=== PATIENT | female | born 1945 | race Caucasian/White ===

== ENCOUNTER 2017-01-21 10:33 | Day surgery (SDC) | payer OTHER ==
[2017-01-21] MEDS ORDERED: Clindamycin 600mg/50ml D5W 600 MG/50 ML VIAL IVPB SCH (12:15)
[2017-01-21] MEDS ORDERED: Clindamycin 600mg/50ml D5W 600 MG/50 ML VIAL IVPB STA (12:30)
[2017-01-21] MEDS ORDERED: Bupivacaine HCl 0.5% PF (10 ml) Inj ONE ×2 (14:01)
[2017-01-21] MEDS ORDERED: Lidocaine 1% Inj (20ml) ONE (14:01)
[2017-01-21] MEDS ORDERED: Lactated Ringer's 1,000 ML IV ONE (14:10)
[2017-01-21] MEDS ORDERED: Propofol 10 mg/ml Inj (20 ML) ONE (14:12)
[2017-01-21] MEDS ORDERED: Midazolam 2 MG/2 ML VIAL ONE (14:30)
[2017-01-21] MEDS ORDERED: HYDROmorphone 0.5 mg/0.5 ml ISec IVP PRN (14:45)
[2017-01-21] MEDS ORDERED: Oxycodone/Acetaminophen 5/325 mg Tab PO PRN ×2 (14:59)
--- NOTE | 2017-01-21 15:03 | PCM.SURG1 ---
Surgeon's Initial Post Op Note - Surgeon's Notes Surgeon: Dr. Grace Counseling Case Manager: Dr. Diaz Type of Anesthesia: IV Sedation, Local Pre-Operative Diagnosis: right foot 2nd digit hammertoe deformity Operative Findings: see dictation. I: 10 ml 1:1 1% lidocaine plain, 0.5% marcaine plain; 10ml 0.5% marcaine plain. M: 0.062 K-wire, 3-0 vicryl, 4-0 prolene. Post-Operative Diagnosis: right foot 2nd digit hammertoe deformity Operation Performed: Right foot 2nd digit PIPJ arthroplasty with K-wire fixation Specimen/Specimens Removed: none Estimated Blood Loss: EBL {In ML}: 1 Blood Products Given: N/A Drains Used: No Drains Post-Op Condition: Good Date of Surgery/Procedure: 01/21/17 Time of Surgery/Procedure: 15:03
--- NOTE | 2017-01-21 16:21 | RAD ---
Right foot three views History: Hammertoe deformity. Comparison: 01/30/2016 Findings: Soft tissue swelling within the dorsal soft tissues of the forefoot. Surgical pin seen extending through the 2nd proximal, middle, and distal phalanges. Diffuse osteopenia. Plantar calcaneal spurring. Narrowing of the tibiotalar joint space with some bony spurring noted anteriorly. Productive change at the dorsal aspect of the anterior talus. Narrowing of the 1st MTP joint space with subchondral sclerosis. Type 1 os navicularis variant noted. Persistent punctate radiopaque foci seen within the medial soft tissues at the base of the 1st metatarsal bone. Bone island and/or accessory ossicle seen projecting over the head of the 1st proximal phalanx. Bone island in the 4th metatarsal midshaft. Pes planus deformity. Impression: Postsurgical changes.
[2017-01-21 18:21] VITALS: BP 149/78; PULSE 55; RESP 18; TEMP 97; O2SAT 100
--- NOTE | 2017-01-23 12:10 | OP ---
PROCEDURE DATE: 01/21/2017 PREOPERATIVE DIAGNOSIS: Right foot second digit hammertoe deformity. POSTOPERATIVE DIAGNOSES: Right foot second digit hammertoe deformity. NAME OF PROCEDURE: Right foot second digit proximal interphalangeal joint arthroplasty with K-wire f ixation. SURGEON: Jayde Grace DPM. MANAGER CUSTOMER: Dannie Diaz. CHERRI. ANESTHESIA: IV sedation with local injection. INDICATIONS: This patient is a 71-year-old female with the aforementioned diagnoses. The patient is being treated by Dr. Grace in the [facility] on an outpatient basis where she has exhau sted multiple forms of conservative treatment options. The patient desires surgical intervention at this time. All alternatives, benefits, complications, and risks of surgical procedure were explained to the patient at length. The patient verbalized an understanding and wished to proceed. All quest ions were addressed and answered. No guarantees were given nor implied. The consent was signed and the n.p.o. status was confirmed prior to bringing the patient to the operating room. OPERATIVE PROCEDURE: The patient was brought into the operating room and placed on the operating dalila m table in supine position. A pneumatic ankle tourniquet was applied to the supramalleolar region ar ound the right ankle. After induction of IV sedation, a local injection consisting of 10 mL of a 1:1 mixture of 1% lidocaine plain and 0.5% Marcaine plain was administered in a local block fashion to t he right foot. After local anesthesia was achieved, the foot was then prepped and draped in the norm al sterile manner, and the procedure began. PROCEDURE: Right foot second digit proximal interphalangeal joint arthroplasty with K-wire fixation. Attention was directed to the dorsal aspect of the right foot second digit proximal interphalangeal joint where a linear longitudinal incision was made with a 15 blade. The incision was deep into the superficial and subcutaneous tissues utilizing sharp and blunt dissection. Care was taken to retrac t all vital neurovascular structures throughout the duration of the procedure. The ____ level of the proximal interphalangeal joint was identified, and a 15 blade was utilized to make a transverse caps ulotomy and tenotomy through the long extensor tendon of the second digit. A 15 blade was then again utilized to release the lateral and medial collateral ligaments from the proximal interphalangeal massimo int. Next, the long extensor tendon was reflected from the dorsal aspect ____ the proximal phalanx utilizi ng a 15 blade and clamped with a hemostat. With the head of the proximal phalanx now adequately expo sed, a sagittal saw was used to resect the distal portion. The resected portion of bone was passed f rom the surgical field to the back table. Next, utilizing a 0.045 K-wire, the K-wire was drilled in a retrograde fashion to create a guide hole in the proximal phalanx. The K-wire was then drilled in an anterograde fashion through the intermed iate and distal phalanges exiting the distal tip of the second digit. The second digit was then held in the corrected position, and the K-wire was again drilled under a retrograde fashion back into the guide hole previously created in the proximal phalanx. At this time, there was noted that the hamme rtoe deformity of the second digit had been adequately corrected. The surgical area was then flushed with copious amounts of sterile normal saline. Utilizing 3-0 Vicr yl suture, the long extensor tendon was reapproximated. The skin was then reapproximated utilizing 4 -0 Prolene suture. The K-wire was then bent and cut, and the appropriate-sized cap was placed. Post operative dressing consisted of saline soaked gauze, DSD, Linda, and Elastoplast. POSTOPERATIVE CONDITION: The patient tolerated the procedure and the anesthesia well with no apparen t complications. The patient was escorted from the OR to the recovery room with vital signs stable a nd neurovascular status intact. The patient will follow up with Dr. Grace in [facility] on an outpatient basis. Dannie Diaz DPM Jayde Grace DPM cc: [id number] TT: 01/23/2017 12:09:33 jn
== END 2017-01-21 18:22 | disposition home or self-care (01) ==
LOC: C.SDS 10:33
PROVIDERS: ATTEND Podiatrist Foot & Ankle Surgery
DX: M20.41 Other hammer toe(s) (acquired), right foot (principal)
CPT/HCPCS: 28285; 73620; C1713; J1170; J2250; J2704; J3010; J7120

== ENCOUNTER 2017-03-19 10:58 | Inpatient (IN) | payer OTHER ==
[2017-03-19 11:38] VITALS: BMI 28.2
[2017-03-19] MEDS ORDERED: Vancomycin 1 GM 1 GM/250 ML BAG IV STA (12:33)
[2017-03-19 13:27] LABS: BASO # 0.1 K/uL (0.0-0.2); BASO % 0.7 % (0.0-2.0); EOS # 0.2 K/uL (0.0-0.7); EOS % 2.3 % (0.0-4.0); HEMATOCRIT 35.8 % (34.0-47.0); LYMPH # 3.4 K/uL (1.0-4.3); LYMPH % 43.9 % (20.0-40.0); MEAN CELL VOLUME 87.3 fL (81.0-99.0); MEAN CORPUSCULAR HEMOGLOBIN 28.8 pg (27.0-31.0); MEAN PLATELET VOLUME 8.9 fL (7.2-11.7); MONO # 0.5 K/uL (0.0-0.8); MONO % 6.1 % (0.0-10.0); NRBC % 0.1 % (0.0-2.0); RED CELL DISTRIBUTION WIDTH 13.5 % (11.5-14.5); WHITE BLOOD COUNT 7.7 K/uL (4.8-10.8)
[2017-03-19 13:35] LABS: CHLORIDE 102 mmol/L (98-107); SODIUM 139 mmol/L (132-148)
[2017-03-19 13:37] LABS: GFR AFRICAN-AMERICAN > 60; INR 1.1
[2017-03-19 13:38] LABS: ALB/GLOB RATIO 1.3 (1.0-2.1); ALKALINE PHOSPHATASE 50 U/L (38-126); ALT/SGPT 24 U/L (9-52); AST/SGOT 23 U/L (14-36); BILIRUBIN,TOTAL 0.5 mg/dL (0.2-1.3); BLOOD UREA NITROGEN 15 mg/dL (7-17); CALCIUM 8.8 mg/dl (8.6-10.4); CARBON DIOXIDE 25 mmol/L (22-30); GLUCOSE,RANDOM 92 mg/dL (65-105); TOTAL PROTEIN 6.4 g/dL (6.3-8.3)
--- NOTE | 2017-03-19 13:38 | RAD ---
PROCEDURE: Right Foot Radiographs. HISTORY: toe infection COMPARISON: 01/30/2016 FINDINGS: BONES: Interval partial resection of 2nd distal proximal phalanx. No periosteal reaction an unexpected is seen surrounding the site or elsewhere to suggest gross radiographic osteomyelitis. The 3rd 4th hammertoes as before the os peroneum is renoted. There is ossification or calcification projecting between the 3rd and 4th metatarsal is likely within the soft tissues rather than contiguous with the bone also projects on 1 of the current projections between the 4th and 5th metatarsals. Prominent inferior calcaneal spurring. Minimal anterior tibiotalar osseous hypertrophy and dorsal talar head osseous hypertrophy noted JOINTS: Normal. SOFT TISSUES: The multiple metallic like densities in the medial soft tissues-1st tarsal metatarsal level are smaller in appearance consistent with radiopaque foreign body -correlate clinically with prior trauma history here no subjacent immediate osseous abnormality noted Mild lower leg reticulated subcutaneous edema likely related to lymphedema and/or cellulitis. OTHER FINDINGS: None. IMPRESSION: Interval postop changes as above. No gross periosteal reaction seen to suggest osteomyelitis. Other findings as above
[2017-03-19] MEDS ORDERED: Vancomycin 1 GM 1 GM/250 ML BAG IVPB ONE (13:42)
[2017-03-19] MEDS ORDERED: Morphine 4 MG/ML VIAL ONE (13:42)
--- NOTE | 2017-03-19 14:14 | C.PDOC ---
History Of Present Illness 71 y/o female sent to the ED by Dr. Grace, composition instructor, to rule out osteomyelitis to right foot 2nd toe. Pt states she is taking Clindamycin, and cipro, but still does not feel better, and still has pain to right foot. Otherwise, denies any change in sensation, weakness, numbness, fever, or chills. Time Seen by Provider: 03/19/17 12:24 Chief Complaint (Nursing): Lower Extremity Problem/Injury History Per: Patient History/Exam Limitations: no limitations Onset/Duration Of Symptoms: Days Current Symptoms Are (Timing): Still Present Recent travel outside of the [place]: No Additional History Per: Patient Past Medical History Reviewed: Historical Data, Nursing Documentation, Vital Signs Vital Signs: Last Vital Signs Temp 98.5 F 03/19/17 18:20 Pulse 55 L 03/19/17 18:20 Resp 20 03/19/17 18:20 BP 114/50 L 03/19/17 18:20 Pulse Ox 98 03/19/17 18:20 - Medical History PMH: Asthma, COPD, Depression, Gastritis, HTN, Hypercholesterolemia, Hypothyroidism, Pneumonia Denies: Chronic Kidney Disease [facility] ENDOSC POLYPECTOMY OF LG INTEST (02/15/14) INSEJ OF DRUG-ELUTING STENT(S) OF OTH PERIPHERAL VESSEL(S) (12/03/13) OTHER LOCAL DESTRUC SKIN (05/17/14) Family History: States: Unknown Family Hx - Social History Hx Tobacco Use: No Hx Alcohol Use: No - Immunization History Hx Tetanus Toxoid Vaccination: No Hx Influenza Vaccination: No Hx Pneumococcal Vaccination: No Review Of Systems Except As Marked, All Systems Reviewed And Found Negative. Constitutional: Negative for: Fever, Chills Cardiovascular: Negative for: Chest Pain, Palpitations Respiratory: Negative for: Shortness of Breath Musculoskeletal: Positive for: Foot Pain (right) Neurological: Negative for: Weakness, Numbness Physical Exam - Physical Exam Appears: Non-toxic, No Acute Distress Skin: No Warm (right foot is cool to palpation), Dry, Other (dark discoloration to right foot 2nd digit, no open sore or drainage) Head: Atraumatic, Normacephalic Oral Mucosa: Moist Neck: Supple Chest: Symmetrical Cardiovascular: Rhythm Regular Respiratory: Normal Breath Sounds, No Rales, No Rhonchi Gastrointestinal/Abdominal: Soft, No Tenderness Extremity: Normal ROM, Capillary Refill (<2 sec.), No Deformity Pulses: Left Dorsalis Pedis: Normal, Right Dorsalis Pedis: Decreased Neurological/Psych: Oriented x3, Normal Speech, Normal Cognition, Normal Motor, Normal Sensation ED Course And Treatment - Laboratory Results Result Diagrams: 03/19/17 13:23 03/19/17 13:23 O2 Sat by Pulse Oximetry: 100 (RA) Pulse Ox Interpretation: Normal - Other Rad Right foot x-ray X-Ray: Viewed By Me, Read By Radiologist Interpretation: PROCEDURE: Right Foot Radiographs. HISTORY: toe infection. COMPARISON: 01/30/2016. FINDINGS: BONES: Interval partial resection of 2nd distal proximal phalanx. No periosteal reaction an unexpected is seen surrounding the site or elsewhere to suggest gross radiographic osteomyelitis. The 3rd 4th hammertoes as before the os peroneum is renoted. There is ossification or calcification projecting between the 3rd and 4th metatarsal is likely within the soft tissues rather than contiguous with the bone also projects on 1 of the current projections between the 4th and 5th metatarsals. Prominent inferior calcaneal spurring. Minimal anterior tibiotalar osseous hypertrophy and dorsal talar head osseous hypertrophy noted. . JOINTS: Normal. SOFT TISSUES: The multiple metallic like densities in the medial soft tissues-1st tarsal metatarsal level are smaller in appearance consistent with radiopaque foreign body -correlate clinically with prior trauma history here no subjacent immediate osseous abnormality noted. Mild lower leg reticulated subcutaneous edema likely related to lymphedema and/or cellulitis. OTHER FINDINGS: None. IMPRESSION: Interval postop changes as above. No gross periosteal reaction seen to suggest osteomyelitis. Other findings as above Progress Note: Blood work, CXR, right foot x-ray ordered and reviewed. Pt was given Morphine, and Vancomycin. On re-eval, pt reports feeling better. Case discussed with Dr. Brennan, esl instructional assistant hospitalist, who accepted pt for admission. Disposition - Disposition Disposition: HOSPITALIZED Disposition Time: 14:37 Condition: STABLE - Clinical Impression Clinical Impression: Toe infection, Ischemic foot - PA / WARE CARRIER / Resident Statement MD/DO has reviewed & agrees with the documentation as recorded. - Scribe Statement The provider has reviewed the documentation as recorded by the Chapin Scherer All medical record entries made by the Cruzibangel were at my direction and personally dictated by me. I have reviewed the chart and agree that the record accurately reflects my personal performance of the history, physical exam, medical decision making, and the department course for this patient. I have also personally directed, reviewed, and agree with the discharge instructions and disposition. Decision To Admit - Pt Status Changed To: Hospital Disposition Of: Inpatient - Admit Certification Admit to Inpatient:: After my assessment, the patient will require hospitalization for at least two midnights. This is because of the severity of symptoms shown, intensity of services needed, and/or the medical risk in this patient being treated as an outpatient. - InPatient: Physician Admission Certification: I certify that this patient requires 2 or more midnights of care for the following reason:: will need to be in the hospital more than 2 days. - . Bed Request Type: Regular Admitting Physician: Bolivar Brennan Patient Diagnosis: Toe infection, Ischemic foot
[2017-03-19] MEDS ORDERED: Oxycodone/Acetaminophen 5/325 mg Tab PO PRN (15:20)
[2017-03-19] MEDS ORDERED: Heparin25000 units/250ml 1/2NS 25,000 UNITS/250 ML BAG IV ONE ×2 (15:29→16:00)
--- NOTE | 2017-03-19 15:58 | RAD ---
PROCEDURE: CHEST RADIOGRAPH, 1 VIEW HISTORY: toe infection COMPARISON: 01/15/2017 FINDINGS: LUNGS: Clear. PLEURA: No pneumothorax or pleural fluid seen. CARDIOVASCULAR: Normal. OSSEOUS STRUCTURES: No significant abnormalities. VISUALIZED UPPER ABDOMEN: Normal. OTHER FINDINGS: None. IMPRESSION: No active disease. No acute/significant interval changes.
--- NOTE | 2017-03-19 16:03 | CP.PCM.HP ---
<Vijay Herrera - Last Filed: 03/19/17 17:05> History of Present Illness - History of Present Illness History of Present Illness: PGY1 Medicine Note for Dr. Brennan 71 yo female with a past medical history of asthma, HTN, HLD, GERD, Hypothyroidism, Impaired glucose tolerance, Depression, Osteoporosis, Hyperparathyroidism, Polyarthritis and obesity. Patient presents to the ED with a CC of right foot pain s/p pin placement of the 2nd toe on the right foot. The surgery was performed by Dr. Grace on 01/21/17. Patient states a week after the surgery, her entire foot turned black and became very painful. The color of her foot has returned to normal except for the second and third toes which remain discolored. The pain is described as burning/throbbing and "feeling like getting bitten by bugs". The pain comes and goes but over the past few days it has gotten more intense. She states she has been taken "some painkiller" prescribed by Dr. Grace but it is not controlling the pain. She states since the pain has started, she has been experiencing fever and chills sporadically. She claims that she has lost consciousness on multiple occasions as a result from the intense pain that she feels. Patient states that she also has been experiencing extreme episodes of pruritus all over her body since the pain has began. Patient states that she has not taken anything outside of what Dr. Grace has prescribed to try and help her symptoms. Patient states she was taking some antibiotics but does not known exactly what she was taking. Denies n /v, d/c, cp, rash or sore throat. Patient has baseline sob due to history of asthma. Patient has hx of headaches at baseline. PMH: asthma, HTN, HLD, GERD, Hypothyroidism, Impaired glucose tolerance, Depression (since son in 2000, pt did not disclose cause of ), Osteoporosis, Hyperparathyroidism, Polyarthritis and obesity PSH: R foot 2nd digit arthroplasty w/ K wire fixation (01/21/2017), lump removal of right breast (non-cancerous), cyst removal from uterus, glaucoma surgery Social: former smoker (quit in 1985), alcohol occasional, denies illicit drug use Family:unknown Allergies: Penicillins (rash) Present on Admission - Present on Admission Any Indicators Present on Admission: No Review of Systems - Review of Systems All systems: reviewed and no additional remarkable complaints except - Constitutional Constitutional: As Per HPI - EENT Eyes: As Per HPI Ears: As Per HPI Nose/Mouth/Throat: As Per HPI - Breasts Breasts: As Per HPI - Cardiovascular Cardiovascular: As Per HPI - Respiratory Respiratory: As Per HPI - Gastrointestinal Gastrointestinal: As Per HPI - Genitourinary Genitourinary: As Per HPI - Reproductive: Female Reproductive:Female: As Per HPI - Menstruation Menstruation: As Per HPI - Musculoskeletal Musculoskeletal: As Per HPI - Integumentary Integumentary: As Per HPI - Neurological Neurological: As Per HPI - Psychiatric Psychiatric: As Per HPI - Endocrine Endocrine: As Per HPI - Hematologic/Lymphatic Hematologic: As Per HPI Past Patient History - Infectious Disease Hx of Infectious Diseases: None - Tetanus Immunizations Tetanus Immunization: Unknown - Past Medical History & Family History Past Medical History?: Yes - Past Social History Smoking Status: Former Smoker - CARDIAC Hx Hypercholesterolemia: Yes Hx Hypertension: Yes - PULMONARY Hx Asthma: Yes Hx Chronic Obstructive Pulmonary Disease (COPD): Yes Hx Pneumonia: Yes - NEUROLOGICAL Hx Neurological Disorder: No - HEENT Hx HEENT Problems: Yes Hx Cataracts: Yes - RENAL Hx Chronic Kidney Disease: No - ENDOCRINE/METABOLIC Hx Hypothyroidism: Yes - HEMATOLOGICAL/ONCOLOGICAL Hx Blood Disorders: No - INTEGUMENTARY Hx Dermatological Problems: Yes Other/Comment: HX:two lumps noted on each side next to under arm - (axillary) pt verbalized Dr. reina. HX: LIPOMA RIGHT CHEST WALL - MUSCULOSKELETAL/RHEUMATOLOGICAL Hx Musculoskeletal Disorders: Yes Hx Back Pain: Yes (LUMBAR) Hx Falls: No Hx Osteoarthritis: Yes (KNEES) Hx Osteomyelitis: Yes Other/Comment: HX: HAMMERTOES(2ND DIGIT-BILATERALLY) - GASTROINTESTINAL Hx Gastritis: Yes - GENITOURINARY/GYNECOLOGICAL Hx Genitourinary Disorders: No - PSYCHIATRIC Hx Depression: Yes - SURGICAL HISTORY Hx Surgeries: Yes Hx Cataract Extraction: Yes (BILATERAL) Hx Dilation and Curettage: Yes Other/Comment: Removal of cyst from ovaries 2010. HX: EXCISION LIPOMA RIGHT CHEST WALL 05/17/14. - ANESTHESIA Hx Anesthesia: Yes Hx Anesthesia Reactions: No Hx Malignant Hyperthermia: No Meds Allergies/Adverse Reactions: Allergies Allergy/AdvReac Type Severity Reaction Status Date / Time Penicillins Allergy RASH Verified 03/19/17 11:34 Physical Exam - Constitutional Additional comments: Obese - Head Exam Head Exam: ATRAUMATIC, NORMOCEPHALIC - Eye Exam Eye Exam: EOMI, Normal appearance - ENT Exam ENT Exam: Mucous Membranes Moist - Respiratory Exam Respiratory Exam: Wheezes. absent: Respiratory Distress Additional comments: Patient states that she feels like her chest is tight when she needs to use her inhaler. She has a history of asthma and requests her asthma pump to help open up her lungs. Patient appears to be slightly sob and is focused on her breathing. - Cardiovascular Exam Cardiovascular Exam: REGULAR RHYTHM, +S1, +S2 - GI/Abdominal Exam GI & Abdominal Exam: Normal Bowel Sounds, Soft. absent: Distended, Firm, Guarding - Extremities Exam Extremities exam: Positive for: tenderness. Negative for: calf tenderness, pedal edema, pedal pulses present - Expanded Lower Extremities Exam Right Foot/Toe exam: tenderness (Extremely tender to palpation of 2 digit, slight tenderness to palpation to 3rd digit) Neuro vacular tendon exam: abnormal cap refill (right foot cool to touch. Unable to palpate PT pulse. PT pulse on left foot 2+), significant pain with passive ROM of distal joint (2nd and 3rd digits) - Neurological Exam Neurological exam: Alert, Oriented x3 - Psychiatric Exam Psychiatric exam: Normal Affect, Normal Mood - Skin Skin Exam: Dry, Normal Color (except 2nd and 3rd digits of right foot, which appear dark and dusky.), Warm Results - Vital Signs Recent Vital Signs: Last Vital Signs Temp 97.5 F L 03/19/17 15:34 Pulse 65 03/19/17 15:34 Resp 18 03/19/17 15:34 BP 131/79 03/19/17 15:34 Pulse Ox 100 03/19/17 15:42 - Labs Result Diagrams: 03/19/17 13:23 03/19/17 13:23 Labs: Laboratory Results - last 24 hr 03/19/17 03/19/17 03/19/17 13:23 13:23 13:23 WBC 7.7 RBC 4.10 Hgb 11.8 Hct 35.8 MCV 87.3 MCH 28.8 MCHC 33.0 RDW 13.5 Plt Count 198 MPV 8.9 Neut % (Auto) 47.0 L Lymph % (Auto) 43.9 H Menard % (Auto) 6.1 Eos % (Auto) 2.3 Baso % (Auto) 0.7 Neut # 3.6 Lymph # 3.4 Menard # 0.5 Eos # 0.2 Baso # 0.1 PT 12.4 H INR 1.1 APTT 34 Sodium 139 Potassium 4.0 Chloride 102 Carbon Dioxide 25 Anion Gap 16 BUN 15 Creatinine 0.8 Est GFR ( Amer) > 60 Est GFR (Non-Af Amer) > 60 Random Glucose 92 Calcium 8.8 Total Bilirubin 0.5 AST 23 ALT 24 Alkaline Phosphatase 50 Total Protein 6.4 Albumin 3.6 Globulin 2.9 Albumin/Globulin Ratio 1.3 Assessment & Plan - Assessment and Plan (Free Text) Plan: Right foot pain s/p 2nd digit arthroplasty with K wire fixation 01/21/2017 Consulted Podiatry - Dr. Grace Consulted Vascular Surgery - Dr. Lay Started on Vanco 1g IV Q12H Started Percocet 325/5mg 1 tab Q6H PRN Started Heparin Drip F/U Podiatry and Vascular recs F/U AM labs, A1c, TSH, lipid panel HTN Lisinopril 10mg daily Hypothyroid Synthroid 50mcg daily HLD Crestor 10mg daily Asthma Singular 10mg daily Advair Diskus 500-50mcg/dose 1 puff daily Ventolin HFA 108 (90 base) mcg/act 2 puffs Q4H PRN Polyarthritis Celebrex 100mg daily Prophylactic Care Heparin Drip Pepcid 20mg daily Tylenol 650mg Q6H for headaches - Date & Time Date: 03/19/17 Time: 16:13 <Bolivar Brennan - Last Filed: 03/20/17 09:43> Results - Vital Signs Recent Vital Signs: Last Vital Signs Temp 98.1 F 03/20/17 07:21 Pulse 67 03/20/17 07:21 Resp 20 03/20/17 07:21 BP 135/81 03/20/17 07:21 Pulse Ox 98 03/20/17 07:21 - Labs Result Diagrams: 03/19/17 13:23 03/19/17 13:23 Labs: Laboratory Results - last 24 hr 03/19/17 19:53 PT 12.4 H INR 1.1 APTT 126 H* D Attending/Attestation - Attestation I have personally seen and examined this patient.: Yes I have fully participated in the care of the patient.: Yes I have reviewed all pertinent clinical information: Yes Notes (Text): 03/20/17 09:42 Patient was seen and examined at bedside with the resident We'll start the patient on antibiotics We'll request vascular surgery and podiatry consultation We will also start the patient on heparin drip for possible foot ischemia I discussed the plan of care with the resident and agree with the history and physical and assessment/plan documented by the resident.
--- NOTE | 2017-03-19 16:34 | CP.PCM.CON ---
History of Present Illness - History of Present Illness History of Present Illness: Vascular Surgery- Dr. Lay 71F PMHx HTN and Asthma had pin placement in the right tarsal metatarsal on January 21. 10 days ago pt was diagnosed with osteomyletitis and started taking oral antibiotics. Pt presented to the ED today with continued pain in the right foot. Denies current fevers chills nausea vomiting chest pain, SOB. PMH: Asthma HTN PSH: chest wall lipoma removal, pin in right foot ALL: PCN Review of Systems - Review of Systems All systems: reviewed and no additional remarkable complaints except Past Patient History - Infectious Disease Hx of Infectious Diseases: None - Tetanus Immunizations Tetanus Immunization: Unknown - Past Medical History & Family History Past Medical History?: Yes - Past Social History Smoking Status: Former Smoker - CARDIAC Hx Hypercholesterolemia: Yes Hx Hypertension: Yes - PULMONARY Hx Asthma: Yes Hx Chronic Obstructive Pulmonary Disease (COPD): Yes Hx Pneumonia: Yes - NEUROLOGICAL Hx Neurological Disorder: No - HEENT Hx HEENT Problems: Yes Hx Cataracts: Yes - RENAL Hx Chronic Kidney Disease: No - ENDOCRINE/METABOLIC Hx Hypothyroidism: Yes - HEMATOLOGICAL/ONCOLOGICAL Hx Blood Disorders: No - INTEGUMENTARY Hx Dermatological Problems: Yes Other/Comment: HX:two lumps noted on each side next to under arm - (axillary) pt verbalized Dr. reina. HX: LIPOMA RIGHT CHEST WALL - MUSCULOSKELETAL/RHEUMATOLOGICAL Hx Musculoskeletal Disorders: Yes Hx Back Pain: Yes (LUMBAR) Hx Falls: No Hx Osteoarthritis: Yes (KNEES) Hx Osteomyelitis: Yes Other/Comment: HX: HAMMERTOES(2ND DIGIT-BILATERALLY) - GASTROINTESTINAL Hx Gastritis: Yes - GENITOURINARY/GYNECOLOGICAL Hx Genitourinary Disorders: No - PSYCHIATRIC Hx Depression: Yes - SURGICAL HISTORY Hx Surgeries: Yes Hx Cataract Extraction: Yes (BILATERAL) Hx Dilation and Curettage: Yes Other/Comment: Removal of cyst from ovaries 2010. HX: EXCISION LIPOMA RIGHT CHEST WALL 05/17/14. - ANESTHESIA Hx Anesthesia: Yes Hx Anesthesia Reactions: No Hx Malignant Hyperthermia: No Meds Allergies/Adverse Reactions: Allergies Allergy/AdvReac Type Severity Reaction Status Date / Time Penicillins Allergy RASH Verified 03/19/17 11:34 - Medications Medications: Current Medications Acetaminophen (Tylenol 325mg Tab) 650 mg PO Q6H PRN PRN Reason: Headache Albuterol (Ventolin Hfa 90 Mcg/Actuation (8 G)) 2 puff IH RQ4 PRN PRN Reason: Shortness of Breath Celecoxib (Celebrex) 100 mg PO DAILY [facility] Hydrochlorothiazide (Hydrodiuril) 25 mg PO DAILY [facility] Vancomycin/Sodium Chloride (Vancocin) 1 gm in 200 mls @ 133.333 mls/hr IVPB Q12H [facility] Stop: 03/25/17 01:31 Heparin Sodium/Sodium Chloride (Heparin 40203 Units/250ml 1/2 Normal Saline) 25 ,000 units in 250 mls @ 14.288 mls/hr IV .[id number] ONE; 18 UNITS/KG/HR PRN Reason: Protocol Stop: 03/20/17 09:29 Levothyroxine Sodium (Synthroid) 50 mcg PO DAILY@0630 [facility] Lisinopril (Zestril) 10 mg PO DAILY [facility] Montelukast Sodium (Singulair) 10 mg PO HS [facility] Oxycodone/Acetaminophen (Percocet 5/325 Mg Tab) 1 tab PO Q6H PRN PRN Reason: Pain, severe (8-10) Stop: 03/22/17 15:21 Rosuvastatin Calcium (Crestor) 5 mg PO HS [facility] Fluticasone/Salmeterol (Advair Diskus 500/50) 1 puff INH RQ12 [facility] Physical Exam - Constitutional Appears: No Acute Distress - Head Exam Head Exam: ATRAUMATIC - Eye Exam Eye Exam: EOMI - Respiratory Exam Respiratory Exam: NORMAL BREATHING PATTERN. absent: Accessory Muscle Use, Rhonchi, Wheezes - Cardiovascular Exam Cardiovascular Exam: +S1, +S2 - GI/Abdominal Exam GI & Abdominal Exam: Soft. absent: Firm, Guarding, Tenderness - Extremities Exam Additional comments: palpable distal pedal pulses discolored right 2nd toe due to post operative changes - Neurological Exam Neurological exam: Alert, Oriented x3 - Psychiatric Exam Psychiatric exam: Normal Affect Results - Vital Signs Recent Vital Signs: Last Vital Signs Temp 97.5 F L 03/19/17 15:34 Pulse 65 03/19/17 15:34 Resp 18 03/19/17 15:34 BP 131/79 03/19/17 15:34 Pulse Ox 100 03/19/17 15:42 - Labs Result Diagrams: 03/19/17 13:23 03/19/17 13:23 Assessment & Plan - Assessment and Plan (Free Text) Assessment: 71F hx of osteomylitis in right foot presents with right foot pain Plan: - continue antibiotics - GI/DVT ppx - acute vascular compromise to extremities unlikely - will continue to follow for now - further recs per Dr. Rosanne Solorzano PGY1
[2017-03-19] MEDS ORDERED: Oxycodone/Acetaminophen 5/325 mg Tab ONE (18:26)
[2017-03-19 20:18] LABS: INR 1.1
[2017-03-20] MEDS: Albuterol HFA 90 mcg/actuation (8 g) IH PRN ×2 (00:13→07:40)
[2017-03-20] MEDS: Vancomycin 1 gm/NS 200 ml 1 GM/200 ML BAG IVPB SCH ×2 (01:42→13:14)
[2017-03-20] MEDS: guaiFENesin DM 200 mg-20 mg/10 ml UD PO PRN (01:43)
[2017-03-20] MEDS: Levothyroxine 50 MCG TAB PO SCH (06:23)
--- NOTE | 2017-03-20 07:28 | CP.PCM.PN ---
<JbHollie black - Last Filed: 03/20/17 12:20> Subjective - Date & Time of Evaluation Date of Evaluation: 03/20/17 Time of Evaluation: 07:00 - Subjective Subjective: Medicine Note for Dr. Brennan Patient was seen and examined at bedside. Patient reports she has immense pain on her right foot, due to her 2nd toe. Pain medications make the pain more bearable but does not take away the pain completely. Denied fever, chills, headache, chest pain, SOB, abdominal pain, n/v/d/c, or urinary symptoms. Objective - Vital Signs/Intake and Output Vital Signs (last 24 hours): Temp Pulse Resp BP Pulse Ox 98.1 F 67 20 135/81 98 03/20/17 07:21 03/20/17 07:21 03/20/17 07:21 03/20/17 07:21 03/20/17 07:21 Intake and Output: 03/20/17 03/20/17 06:59 18:59 Intake Total 230 Balance 230 - Medications Medications: Current Medications Acetaminophen (Tylenol 325mg Tab) 650 mg PO Q6H PRN PRN Reason: Headache Albuterol (Ventolin Hfa 90 Mcg/Actuation (8 G)) 2 puff IH RQ4 PRN PRN Reason: Shortness of Breath Last Admin: 03/20/17 00:13 Dose: 2 puff Guaifenesin/Dextromethorphan (Robitussin Dm) 10 ml PO Q4H PRN PRN Reason: Cough and congestion Last Admin: 03/20/17 01:43 Dose: 10 ml Hydrochlorothiazide (Hydrodiuril) 25 mg PO DAILY [facility] Vancomycin/Sodium Chloride (Vancocin) 1 gm in 200 mls @ 133.333 mls/hr IVPB Q12H [facility] Stop: 03/25/17 01:31 Last Admin: 03/20/17 01:42 Dose: 133.333 mls/hr Heparin Sodium/Sodium Chloride (Heparin 27426 Units/250ml 1/2 Normal Saline) 25 ,000 units in 250 mls @ 14.288 mls/hr IV .[id number] ONE; 18 UNITS/KG/HR PRN Reason: Protocol Stop: 03/20/17 09:29 Last Admin: 03/19/17 16:22 Dose: 18 units/kg/hr, 14.288 mls/hr Levothyroxine Sodium (Synthroid) 50 mcg PO DAILY@0630 [facility] Last Admin: 03/20/17 06:23 Dose: 50 mcg Lisinopril (Zestril) 10 mg PO DAILY [facility] Montelukast Sodium (Singulair) 10 mg PO HS [facility] Oxycodone/Acetaminophen (Percocet 5/325 Mg Tab) 1 tab PO Q6H PRN PRN Reason: Pain, severe (8-10) Stop: 03/22/17 15:21 Last Admin: 03/19/17 18:25 Dose: 1 tab Pantoprazole Sodium (Protonix Inj) 40 mg IVP DAILY [facility] Pneumococcal Polyvalent Vaccine (Pneumovax 23 Vaccine) 0.5 ml IM .ONCE ONE Stop: 03/22/17 10:01 Rosuvastatin Calcium (Crestor) 5 mg PO HS [facility] Last Admin: 03/19/17 21:37 Dose: 5 mg Fluticasone/Salmeterol (Advair Diskus 500/50) 1 puff INH RQ12 [facility] - Labs Labs: PT 12.4 SECONDS (9.7-12.2) H 03/19/17 19:53 INR 1.1 03/19/17 19:53 APTT 126 SECONDS (21-34) H* D 03/19/17 19:53 - Constitutional Appears: No Acute Distress - Head Exam Head Exam: NORMAL INSPECTION, NORMOCEPHALIC - Eye Exam Eye Exam: EOMI, Normal appearance, PERRL Pupil Exam: NORMAL ACCOMODATION - ENT Exam ENT Exam: Mucous Membranes Moist, Normal Exam - Respiratory Exam Respiratory Exam: Clear to Ausculation Bilateral, NORMAL BREATHING PATTERN. absent: Wheezes - Cardiovascular Exam Cardiovascular Exam: REGULAR RHYTHM, RRR, +S1, +S2 - GI/Abdominal Exam GI & Abdominal Exam: Soft, Normal Bowel Sounds. absent: Distended, Tenderness - Extremities Exam Extremities Exam: Normal Inspection. absent: Pedal Edema, Tenderness Additional comments: Right foot: tenderness (Extremely tender to palpation of 2 digit, slight tenderness to palpation to 3rd digit) Neuro vacular tendon exam: abnormal cap refill (right foot cool to touch. Unable to palpate PT pulse. PT pulse on left foot 2+), significant pain with passive ROM of distal joint (2nd and 3rd digits) - Neurological Exam Neurological Exam: Alert, Awake, Oriented x3 - Psychiatric Exam Psychiatric exam: Normal Affect, Normal Mood - Skin Skin Exam: Dry, Intact, Normal Color, Warm Assessment and Plan - Assessment and Plan (Free Text) Plan: Right foot pain s/p 2nd digit arthroplasty with K wire fixation 01/21/2017 Started on Vanco 1g IV Q12H Started Percocet 325/5mg 1 tab Q6H PRN Heparin Drip was started 03/19/17 Consulted Vascular Surgery - Dr. Lay - acute vascular compromise to extremities unlikely - Ordered CTA - f/u study Consulted Podiatry - Dr. Grace - help appreciated HTN Lisinopril 10mg daily, HCTZ 25mg PO daily A1c, TSH, lipid panel -WNL Hypothyroid Synthroid 50mcg daily HLD Crestor 10mg daily Asthma Singular 10mg daily Advair Diskus 500-50mcg/dose 1 puff daily Ventolin HFA 108 (90 base) mcg/act 2 puffs Q4H PRN Polyarthritis Celebrex 100mg daily Prophylactic Care Heparin Drip Pepcid 20mg daily Tylenol 650mg Q6H for headaches DW Savi Zhu DO, PGY-1 <Bolivar Brennan - Last Filed: 03/20/17 15:05> Objective - Vital Signs/Intake and Output Vital Signs (last 24 hours): Temp Pulse Resp BP Pulse Ox 98.1 F 73 20 152/79 H 98 03/20/17 07:21 03/20/17 10:35 03/20/17 07:21 03/20/17 10:35 03/20/17 07:21 Intake and Output: 03/20/17 03/20/17 06:59 18:59 Intake Total 230 Balance 230 - Medications Medications: Current Medications Acetaminophen (Tylenol 325mg Tab) 650 mg PO Q6H PRN PRN Reason: Headache Albuterol (Ventolin Hfa 90 Mcg/Actuation (8 G)) 2 puff IH RQ4 PRN PRN Reason: Shortness of Breath Last Admin: 03/20/17 07:40 Dose: 2 puff Guaifenesin/Dextromethorphan (Robitussin Dm) 10 ml PO Q4H PRN PRN Reason: Cough and congestion Last Admin: 03/20/17 01:43 Dose: 10 ml Hydrochlorothiazide (Hydrodiuril) 25 mg PO DAILY [facility] Last Admin: 03/20/17 10:36 Dose: 25 mg Vancomycin/Sodium Chloride (Vancocin) 1 gm in 200 mls @ 133.333 mls/hr IVPB Q12H [facility] Stop: 03/25/17 01:31 Last Admin: 03/20/17 13:14 Dose: 133.333 mls/hr Heparin Sodium/Sodium Chloride (Heparin 80757 Units/250ml 1/2 Normal Saline) 25 ,000 units in 250 mls @ 11.907 mls/hr IV .Q21H PRN; Protocol; 15 UNITS/KG/HR PRN Reason: PROTOCOL Last Admin: 03/20/17 14:11 Dose: 15 units/kg/hr, 11.907 mls/hr Levothyroxine Sodium (Synthroid) 50 mcg PO DAILY@0630 [facility] Last Admin: 03/20/17 06:23 Dose: 50 mcg Lisinopril (Zestril) 10 mg PO DAILY [facility] Last Admin: 03/20/17 10:35 Dose: 10 mg Montelukast Sodium (Singulair) 10 mg PO HS [facility] Morphine Sulfate (Morphine) 1 mg IVP Q4 PRN PRN Reason: Pain, severe (8-10) Oxycodone/Acetaminophen (Percocet 5/325 Mg Tab) 1 tab PO Q6H PRN PRN Reason: Pain, moderate (4-7) Stop: 03/22/17 15:21 Pantoprazole Sodium (Protonix Inj) 40 mg IVP DAILY [facility] Last Admin: 03/20/17 10:35 Dose: 40 mg Pneumococcal Polyvalent Vaccine (Pneumovax 23 Vaccine) 0.5 ml IM .ONCE ONE Stop: 03/22/17 10:01 Rosuvastatin Calcium (Crestor) 5 mg PO HS [facility] Last Admin: 03/19/17 21:37 Dose: 5 mg Fluticasone/Salmeterol (Advair Diskus 500/50) 1 puff INH RQ12 [facility] Last Admin: 03/20/17 07:39 Dose: 1 puff - Labs Labs: 03/20/17 11:14 03/20/17 11:14 PT 12.4 SECONDS (9.7-12.2) H 03/19/17 19:53 INR 1.1 08/15/17 19:53 APTT 124 SECONDS (21-34) H* 03/20/17 11:14 Attending/Attestation - Attestation I have personally seen and examined this patient.: Yes I have fully participated in the care of the patient.: Yes I have reviewed all pertinent clinical information, including history, physical exam and plan: Yes Notes (Text): 03/20/17 15:02 Patient was seen and examined at bedside today On examination patient's right foot appears warm today. Second toe appears to be less Dr. Patient also stated that pain and tenderness is improved We will continue heparin drip Discussed with vascular surgery. Plan for CT angiography today. Podiatry evaluation seen and appreciated Continue current management Discussed the plan of care with the resident and agree with the history and physical and assessment/plan documented.
[2017-03-20] MEDS: Fluticasone-Salmeterol 500-50mcg Diskus INH SCH (07:39)
--- NOTE | 2017-03-20 08:58 | CP.PCM.CON ---
History of Present Illness - History of Present Illness History of Present Illness: 71 year old female with PMHx including asthma, HTN, HLD, GERD, Hypothyroidism, Impaired glucose tolerance, Depression, Osteoporosis, Hyperparathyroidism, Polyarthritis and obesity was seen for complaint of right foot pain. She had right second hammertoe correction with Dr. Grace on 01/21/17. She states that she has had a lot of pain since the surgery. She had been given pain medication and antibiotics by Dr. Grace. She also states that she previously had a fever. She currently denies any n/c/f/c/sob/cp. Past Patient History - Infectious Disease Hx of Infectious Diseases: None - Tetanus Immunizations Tetanus Immunization: Unknown - Past Medical History & Family History Past Medical History?: Yes - Past Social History Smoking Status: Former Smoker - CARDIAC Hx Hypercholesterolemia: Yes Hx Hypertension: Yes - PULMONARY Hx Asthma: Yes Hx Chronic Obstructive Pulmonary Disease (COPD): Yes Hx Pneumonia: Yes - NEUROLOGICAL Hx Neurological Disorder: No - HEENT Hx HEENT Problems: Yes Hx Cataracts: Yes - RENAL Hx Chronic Kidney Disease: No - ENDOCRINE/METABOLIC Hx Endocrine Disorders: Yes Hx Hypothyroidism: Yes - HEMATOLOGICAL/ONCOLOGICAL Hx Blood Disorders: No - INTEGUMENTARY Hx Dermatological Problems: Yes Other/Comment: HX:two lumps noted on each side next to under arm - (axillary) pt verbalized Dr. reina. HX: LIPOMA RIGHT CHEST WALL - MUSCULOSKELETAL/RHEUMATOLOGICAL Hx Musculoskeletal Disorders: Yes Hx Back Pain: Yes (LUMBAR) Hx Falls: No Hx Osteoarthritis: Yes (KNEES) Hx Osteomyelitis: Yes Other/Comment: HX: HAMMERTOES(2ND DIGIT-BILATERALLY) - GASTROINTESTINAL Hx Gastrointestinal Disorders: Yes Hx Gastritis: Yes - GENITOURINARY/GYNECOLOGICAL Hx Genitourinary Disorders: No - PSYCHIATRIC Hx Psychophysiologic Disorder: Yes Hx Depression: Yes Hx Substance Use: No - SURGICAL HISTORY Hx Surgeries: Yes Hx Cataract Extraction: Yes (BILATERAL) Hx Dilation and Curettage: Yes Other/Comment: Removal of cyst from ovaries 2010. HX: EXCISION LIPOMA RIGHT CHEST WALL 05/17/14. - ANESTHESIA Hx Anesthesia: Yes Hx Anesthesia Reactions: No Hx Malignant Hyperthermia: No Has any member of the family had a problem w/ anesthesia?: No Meds Allergies/Adverse Reactions: Allergies Allergy/AdvReac Type Severity Reaction Status Date / Time Penicillins Allergy RASH Verified 03/19/17 11:34 - Medications Medications: Current Medications Acetaminophen (Tylenol 325mg Tab) 650 mg PO Q6H PRN PRN Reason: Headache Albuterol (Ventolin Hfa 90 Mcg/Actuation (8 G)) 2 puff IH RQ4 PRN PRN Reason: Shortness of Breath Last Admin: 03/20/17 07:40 Dose: 2 puff Guaifenesin/Dextromethorphan (Robitussin Dm) 10 ml PO Q4H PRN PRN Reason: Cough and congestion Last Admin: 03/20/17 01:43 Dose: 10 ml Hydrochlorothiazide (Hydrodiuril) 25 mg PO DAILY [facility] Vancomycin/Sodium Chloride (Vancocin) 1 gm in 200 mls @ 133.333 mls/hr IVPB Q12H [facility] Stop: 03/25/17 01:31 Last Admin: 03/20/17 01:42 Dose: 133.333 mls/hr Heparin Sodium/Sodium Chloride (Heparin 70981 Units/250ml 1/2 Normal Saline) 25 ,000 units in 250 mls @ 14.288 mls/hr IV .[id number] ONE; 18 UNITS/KG/HR PRN Reason: Protocol Stop: 03/20/17 09:29 Last Admin: 03/19/17 16:22 Dose: 18 units/kg/hr, 14.288 mls/hr Levothyroxine Sodium (Synthroid) 50 mcg PO DAILY@0630 [facility] Last Admin: 03/20/17 06:23 Dose: 50 mcg Lisinopril (Zestril) 10 mg PO DAILY [facility] Montelukast Sodium (Singulair) 10 mg PO HS [facility] Oxycodone/Acetaminophen (Percocet 5/325 Mg Tab) 1 tab PO Q6H PRN PRN Reason: Pain, severe (8-10) Stop: 03/22/17 15:21 Last Admin: 03/19/17 18:25 Dose: 1 tab Pantoprazole Sodium (Protonix Inj) 40 mg IVP DAILY [facility] Pneumococcal Polyvalent Vaccine (Pneumovax 23 Vaccine) 0.5 ml IM .ONCE ONE Stop: 03/22/17 10:01 Rosuvastatin Calcium (Crestor) 5 mg PO HS [facility] Last Admin: 03/19/17 21:37 Dose: 5 mg Fluticasone/Salmeterol (Advair Diskus 500/50) 1 puff INH RQ12 [facility] Last Admin: 03/20/17 07:39 Dose: 1 puff Physical Exam - Constitutional Appears: Non-toxic, No Acute Distress - Extremities Exam Additional comments: Right lower extremity focused exam: Vasc: DP and PT pulses palpable. Skin temperature warm to warm from proximal to distal. Neuro: Gross sensation intact b/l Ortho: Pain on palpation noted to the right 2nd digit Derm: Right second digit is edematous. No open lesions, no drainage, no probe to bone noted. Right 2nd digit skin is slightly discolored. - Neurological Exam Neurological exam: Alert, Oriented x3 - Psychiatric Exam Psychiatric exam: Normal Affect, Normal Mood Results - Vital Signs Recent Vital Signs: Last Vital Signs Temp 98.1 F 03/20/17 07:21 Pulse 67 03/20/17 07:21 Resp 20 03/20/17 07:21 BP 135/81 03/20/17 07:21 Pulse Ox 98 03/20/17 07:21 - Labs Result Diagrams: 03/20/17 11:14 03/20/17 11:14 Labs: Laboratory Results - last 24 hr 03/19/17 19:53 PT 12.4 H INR 1.1 APTT 126 H* D Assessment & Plan - Assessment and Plan (Free Text) Assessment: 71 year old female 8 weeks status post right 2nd digit hammertoe correction Plan: patient examined and evaluated discussed in detail with Dr. Grace chart, labs, vitals reviewed;afebrile, WBC 7.1 Radiographic IMPRESSION:Interval postop changes as above. No gross periosteal reaction seen to suggest osteomyelitis. Other findings as above CTA per vascular no dressing needed continue pain medication per primary continue IV abx per primary podiatry will continue to follow patient while in house
[2017-03-20] MEDS ORDERED: Oxycodone/Acetaminophen 5/325 mg Tab PO PRN (09:57)
--- NOTE | 2017-03-20 11:07 | CP.PCM.PN ---
Subjective - Date & Time of Evaluation Date of Evaluation: 03/20/17 Time of Evaluation: 06:50 - Subjective Subjective: Patient seen and examined this morning. Complains of pain along 2nd toe. Denies chest pain/SOB, fever/chills. No events over night. Objective - Vital Signs/Intake and Output Vital Signs (last 24 hours): Temp Pulse Resp BP Pulse Ox 98.1 F 73 20 152/79 H 98 03/20/17 07:21 03/20/17 10:35 03/20/17 07:21 03/20/17 10:35 03/20/17 07:21 Intake and Output: 03/20/17 03/20/17 06:59 18:59 Intake Total 230 Balance 230 - Medications Medications: Current Medications Acetaminophen (Tylenol 325mg Tab) 650 mg PO Q6H PRN PRN Reason: Headache Albuterol (Ventolin Hfa 90 Mcg/Actuation (8 G)) 2 puff IH RQ4 PRN PRN Reason: Shortness of Breath Last Admin: 03/20/17 07:40 Dose: 2 puff Guaifenesin/Dextromethorphan (Robitussin Dm) 10 ml PO Q4H PRN PRN Reason: Cough and congestion Last Admin: 03/20/17 01:43 Dose: 10 ml Hydrochlorothiazide (Hydrodiuril) 25 mg PO DAILY [facility] Last Admin: 03/20/17 10:36 Dose: 25 mg Vancomycin/Sodium Chloride (Vancocin) 1 gm in 200 mls @ 133.333 mls/hr IVPB Q12H [facility] Stop: 03/25/17 01:31 Last Admin: 03/20/17 01:42 Dose: 133.333 mls/hr Levothyroxine Sodium (Synthroid) 50 mcg PO DAILY@0630 [facility] Last Admin: 03/20/17 06:23 Dose: 50 mcg Lisinopril (Zestril) 10 mg PO DAILY [facility] Last Admin: 03/20/17 10:35 Dose: 10 mg Montelukast Sodium (Singulair) 10 mg PO HS [facility] Morphine Sulfate (Morphine) 1 mg IVP Q4 PRN PRN Reason: Pain, severe (8-10) Oxycodone/Acetaminophen (Percocet 5/325 Mg Tab) 1 tab PO Q6H PRN PRN Reason: Pain, moderate (4-7) Stop: 03/22/17 15:21 Pantoprazole Sodium (Protonix Inj) 40 mg IVP DAILY [facility] Last Admin: 03/20/17 10:35 Dose: 40 mg Pneumococcal Polyvalent Vaccine (Pneumovax 23 Vaccine) 0.5 ml IM .ONCE ONE Stop: 03/22/17 10:01 Rosuvastatin Calcium (Crestor) 5 mg PO HS [facility] Last Admin: 03/19/17 21:37 Dose: 5 mg Fluticasone/Salmeterol (Advair Diskus 500/50) 1 puff INH RQ12 [facility] Last Admin: 03/20/17 07:39 Dose: 1 puff - Labs Labs: PT 12.4 SECONDS (9.7-12.2) H 03/19/17 19:53 INR 1.1 03/19/17 19:53 APTT 126 SECONDS (21-34) H* D 03/19/17 19:53 - Constitutional Appears: No Acute Distress - Head Exam Head Exam: NORMOCEPHALIC - Eye Exam Eye Exam: Normal appearance - ENT Exam ENT Exam: Mucous Membranes Moist - Respiratory Exam Respiratory Exam: NORMAL BREATHING PATTERN - Cardiovascular Exam Cardiovascular Exam: +S1, +S2 - GI/Abdominal Exam GI & Abdominal Exam: Soft - Neurological Exam Neurological Exam: Alert, Awake, Oriented x3 - Psychiatric Exam Psychiatric exam: Normal Mood - Skin Skin Exam: Intact, Warm Additional comments: hyperesthesia along 2nd toe Assessment and Plan - Assessment and Plan (Free Text) Assessment: 71 year old female 8 weeks status post right 2nd digit hammertoe correction -Follow up CTA results -C/w abx -C/w anticoagulant -analgesics -Medical treatment as per primary -Further recs per Dr. Rosanne Workman PGY-2
[2017-03-20 11:23] LABS: BASO % 0.6 % (0.0-2.0); EOS # 0.1 K/uL (0.0-0.7); EOS % 1.9 % (0.0-4.0); HEMATOCRIT 38.6 % (34.0-47.0); LYMPH # 2.7 K/uL (1.0-4.3); LYMPH % 36.2 % (20.0-40.0); MEAN CELL VOLUME 86.8 fL (81.0-99.0); MEAN CORPUSCULAR HEMOGLOBIN 28.9 pg (27.0-31.0); MEAN CORPUSCULAR HGB CONC 33.3 g/dL (33.0-37.0); MEAN PLATELET VOLUME 9.1 fL (7.2-11.7); MONO # 0.5 K/uL (0.0-0.8); MONO % 6.6 % (0.0-10.0); NRBC % 0.1 % (0.0-2.0); RED CELL DISTRIBUTION WIDTH 13.7 % (11.5-14.5); WHITE BLOOD COUNT 7.4 K/uL (4.8-10.8)
[2017-03-20 11:32] LABS: CHLORIDE 102 mmol/L (98-107)
[2017-03-20 11:33] LABS: POTASSIUM 3.4 mmol/L (3.6-5.2); SODIUM 137 mmol/L (132-148)
[2017-03-20 11:35] LABS: BILIRUBIN,TOTAL 0.6 mg/dL (0.2-1.3); CARBON DIOXIDE 26 mmol/L (22-30); CHOLESTEROL 190 mg/dL (0-199); GFR AFRICAN-AMERICAN > 60
[2017-03-20 11:36] LABS: ALB/GLOB RATIO 1.2 (1.0-2.1); ALKALINE PHOSPHATASE 54 U/L (38-126); ALT/SGPT 28 U/L (9-52); AST/SGOT 25 U/L (14-36); BLOOD UREA NITROGEN 9 mg/dL (7-17); CALCIUM 8.9 mg/dl (8.6-10.4); GLUCOSE,RANDOM 93 mg/dL (65-105); TOTAL PROTEIN 6.7 g/dL (6.3-8.3)
[2017-03-20 12:08] LABS: THYROID STIMULATING HORMONE 1.86 mIU/L (0.46-4.68)
[2017-03-20] MEDS ORDERED: Potassium Chloride 20 mEq ER Tab PO ONE (12:30)
[2017-03-20] MEDS ORDERED: Heparin25000 units/250ml 1/2NS 25,000 UNITS/250 ML BAG IV PRN ×3 (13:38→21:30)
[2017-03-20] MEDS ORDERED: Iodixanol 320 mg/ml 150 ml Bottle IV ONE (14:53)
[2017-03-21] MEDS: Vancomycin 1 gm/NS 200 ml 1 GM/200 ML BAG IVPB SCH ×3 (00:31→19:01)
[2017-03-21] MEDS: Levothyroxine 50 MCG TAB PO SCH (05:44)
[2017-03-21 07:47] LABS: BASO # 0.1 K/uL (0.0-0.2); BASO % 0.8 % (0.0-2.0); EOS # 0.2 K/uL (0.0-0.7); EOS % 2.9 % (0.0-4.0); HEMATOCRIT 38.1 % (34.0-47.0); LYMPH # 3.2 K/uL (1.0-4.3); LYMPH % 43.6 % (20.0-40.0); MEAN CELL VOLUME 86.8 fL (81.0-99.0); MEAN CORPUSCULAR HEMOGLOBIN 29.1 pg (27.0-31.0); MEAN CORPUSCULAR HGB CONC 33.5 g/dL (33.0-37.0); MEAN PLATELET VOLUME 9.3 fL (7.2-11.7); MONO # 0.5 K/uL (0.0-0.8); NRBC % 0.5 % (0.0-2.0); RED CELL DISTRIBUTION WIDTH 13.5 % (11.5-14.5); WHITE BLOOD COUNT 7.4 K/uL (4.8-10.8)
[2017-03-21 07:52] LABS: CHLORIDE 102 mmol/L (98-107); POTASSIUM 3.7 mmol/L (3.6-5.2); SODIUM 136 mmol/L (132-148)
[2017-03-21 07:54] LABS: AST/SGOT 22 U/L (14-36); BILIRUBIN,TOTAL 0.7 mg/dL (0.2-1.3); CARBON DIOXIDE 23 mmol/L (22-30); GFR AFRICAN-AMERICAN > 60
[2017-03-21 07:55] LABS: ALB/GLOB RATIO 1.2 (1.0-2.1); ALKALINE PHOSPHATASE 55 U/L (38-126); ALT/SGPT 29 U/L (9-52); BLOOD UREA NITROGEN 9 mg/dL (7-17); GLUCOSE,RANDOM 87 mg/dL (65-105); TOTAL PROTEIN 6.5 g/dL (6.3-8.3)
[2017-03-21] MEDS: Albuterol HFA 90 mcg/actuation (8 g) IH PRN ×2 (08:02→20:05)
[2017-03-21] MEDS: Fluticasone-Salmeterol 500-50mcg Diskus INH SCH ×2 (08:02→20:04)
[2017-03-21] MEDS ORDERED: Heparin25000 units/250ml 1/2NS 25,000 UNITS/250 ML BAG IV PRN (10:45)
--- NOTE | 2017-03-21 11:00 | CP.PCM.PN ---
Subjective - Date & Time of Evaluation Date of Evaluation: 03/21/17 Time of Evaluation: 10:53 - Subjective Subjective: 71 year old female was seen resting comfortably at bedside this morning regarding R 2nd digit pain. Patient NAD, AAOx3. Patient states that she has less pain to her right 2nd digit today and that the swelling has come down. She denies any n/v/f/c/sob/cp. Objective - Vital Signs/Intake and Output Vital Signs (last 24 hours): Temp Pulse Resp BP Pulse Ox 98 F 61 19 167/82 H 100 03/21/17 07:58 03/21/17 07:58 03/21/17 07:58 03/21/17 07:58 03/21/17 07:58 Intake and Output: 03/21/17 03/21/17 06:59 18:59 Intake Total 580 Balance 580 - Medications Medications: Current Medications Acetaminophen (Tylenol 325mg Tab) 650 mg PO Q6H PRN PRN Reason: Headache Albuterol (Ventolin Hfa 90 Mcg/Actuation (8 G)) 2 puff IH RQ4 PRN PRN Reason: Shortness of Breath Last Admin: 03/21/17 08:02 Dose: 2 puff Guaifenesin/Dextromethorphan (Robitussin Dm) 10 ml PO Q4H PRN PRN Reason: Cough and congestion Last Admin: 03/20/17 01:43 Dose: 10 ml Hydrochlorothiazide (Hydrodiuril) 25 mg PO DAILY [facility] Last Admin: 03/21/17 09:32 Dose: 25 mg Vancomycin/Sodium Chloride (Vancocin) 1 gm in 200 mls @ 133.333 mls/hr IVPB Q12H [facility] Stop: 03/25/17 01:31 Last Admin: 03/21/17 00:31 Dose: 133.333 mls/hr Heparin Sodium/Sodium Chloride (Heparin 69588 Units/250ml 1/2 Normal Saline) 25 ,000 units in 250 mls @ 7.144 mls/hr IV .Q24H PRN; Protocol; 9 UNITS/KG/HR PRN Reason: PROTOCOL Levothyroxine Sodium (Synthroid) 50 mcg PO DAILY@0630 [facility] Last Admin: 03/21/17 05:44 Dose: 50 mcg Lisinopril (Zestril) 10 mg PO DAILY [facility] Last Admin: 03/21/17 09:32 Dose: 10 mg Montelukast Sodium (Singulair) 10 mg PO [facility] Last Admin: 03/20/17 21:05 Dose: 10 mg Morphine Sulfate (Morphine) 1 mg IVP Q4 PRN PRN Reason: Pain, severe (8-10) Last Admin: 03/21/17 00:32 Dose: 1 mg Oxycodone/Acetaminophen (Percocet 5/325 Mg Tab) 1 tab PO Q6H PRN PRN Reason: Pain, moderate (4-7) Stop: 03/22/17 15:21 Pantoprazole Sodium (Protonix Inj) 40 mg IVP DAILY [facility] Last Admin: 03/21/17 09:33 Dose: 40 mg Pneumococcal Polyvalent Vaccine (Pneumovax 23 Vaccine) 0.5 ml IM .ONCE ONE Stop: 03/22/17 10:01 Rosuvastatin Calcium (Crestor) 5 mg PO [facility] Last Admin: 03/20/17 21:05 Dose: 5 mg Fluticasone/Salmeterol (Advair Diskus 500/50) 1 puff INH RQ12 [facility] Last Admin: 03/21/17 08:02 Dose: 1 puff - Labs Labs: 03/21/17 07:21 03/21/17 07:21 PT 12.4 SECONDS (9.7-12.2) H 03/19/17 19:53 INR 1.1 03/19/17 19:53 APTT 124 SECONDS (21-34) H* D 03/21/17 06:56 - Constitutional Appears: Well, Non-toxic, No Acute Distress - Extremities Exam Additional comments: Right lower extremity focused exam: Vasc: DP and PT pulses palpable. Skin temperature warm to cool from proximal to distal. Neuro: Gross sensation intact Ortho: Pain on palpation noted to the right 2nd digit Derm: Right second digit is edematous. No open lesions, no drainage, no probe to bone noted. Right 2nd digit skin is slightly discolored dark. - Neurological Exam Neurological Exam: Alert, Awake, Oriented x3 - Psychiatric Exam Psychiatric exam: Normal Affect, Normal Mood Assessment and Plan - Assessment and Plan (Free Text) Assessment: 71 year old female 8 weeks status post right 2nd digit hammertoe correction Plan: patient examined and evaluated discussed in detail with Dr. Grace chart, labs, vitals reviewed;afebrile, WBC 7.4 Radiographic IMPRESSION:Interval postop changes as above. No gross periosteal reaction seen to suggest osteomyelitis. Other findings as above MRI 03/08/17 impressions: Findings compatible with osteomyelitis of the 2nd digit primarily at the mid proximal and middle phalangeal segments and potentially the distal phalanx as well 2nd digit no definite fracture identified. Dephasing artifact is noted at the midfoot medially within superficial soft tissues likely from retained paramagnetic foreign body. CTA per vascular- pending no dressing needed continue pain medication per primary continue IV abx per primary podiatry will continue to follow patient while in house
--- NOTE | 2017-03-21 14:02 | CT ---
PROCEDURE: CT Angiography Abdomen, Pelvis and Lower Extremity with Contrast HISTORY: Leg pain COMPARISON: None. TECHNIQUE: Technique: CT angiography of the abdomen, pelvis and bilateral lower extremities performed in the arterial phase of enhancement. Coronal and sagittal reformats, and well as rotating MIP images of the vessels generated at the workstation. Intravenous contrast dose: 150 milliliters Visipaque 320 Radiation dose: Total exam DLP = 2362.33 MGy-cm. This CT exam was performed using one or more of the following dose reduction techniques: Automated exposure control, adjustment of the mA and/or kV according to patient size, and/or use of iterative reconstruction technique. FINDINGS: CT ANGIOGRAPHY: ABDOMINAL AORTA:: Abdominal was unremarkable. MAJOR AORTIC BRANCHES: Celiac [place]: Unremarkable. Superior mesenteric artery: Unremarkable. Inferior mesenteric artery: Unremarkable. Renal arteries: Unremarkable. PELVIC ARTERIES: Right Common Iliac: Unremarkable. Right External Iliac: Unremarkable. Right Internal Iliac: Unremarkable. Left Common Iliac: Unremarkable. Left External Iliac: Unremarkable. Left Internal Iliac: Unremarkable. RIGHT LOWER EXTREMITY ARTERIES: Right Common Femoral: Unremarkable. Right Superficial Femoral: Unremarkable. Right Profunda Femoris: Unremarkable. Right Popliteal:Unremarkable. Right Anterior Tibial: Unremarkable. Right Tibioperoneal Trunk: Unremarkable. Right Posterior Tibial: Unremarkable. Right Peroneal: Unremarkable. Right dorsalis pedis : Unremarkable. LEFT LOWER EXTREMITY ARTERIES: Left Common Femoral: Unremarkable. Left Superficial Femoral: Unremarkable. Left Profunda Femoris: Unremarkable. Left Popliteal: Unremarkable. Left Anterior Tibial: Unremarkable. Left Tibioperoneal Trunk: Unremarkable. Left Posterior Tibial: Unremarkable. Left Peronea: Unremarkable. Left Dorsalis pedis: Unremarkable. NON-ANGIOGRAPHIC ASPECT OF THE EXAM: LOWER THORAX: Unremarkable. LIVER: Unremarkable. No gross lesion or ductal dilatation. GALLBLADDER AND BILE DUCTS: Unremarkable. PANCREAS: Unremarkable. No gross lesion or ductal dilatation. SPLEEN: Unremarkable. ADRENALS: Unremarkable. No mass. KIDNEYS AND URETERS: Unremarkable. No hydronephrosis. No solid mass. STOMACH AND BOWEL: Unremarkable. No obstruction. No gross mural thickening. APPENDIX: Normal appendix. PERITONEUM: Unremarkable. No free fluid. No free air. LYMPH NODES: Unremarkable. No enlarged lymph nodes. BLADDER: Unremarkable. REPRODUCTIVE: Unremarkable. BONES: No acute fracture. OTHER FINDINGS: None. IMPRESSION: Unremarkable CT angiogram of the abdomen pelvis. There is no evidence of peripheral show disease.
--- NOTE | 2017-03-21 15:00 | CP.PCM.PN ---
Subjective - Date & Time of Evaluation Date of Evaluation: 03/21/17 Time of Evaluation: 14:59 - Subjective Subjective: cta confirms clinical imression No evidence of significant or occult PVD Objective - Vital Signs/Intake and Output Vital Signs (last 24 hours): Temp Pulse Resp BP Pulse Ox 98 F 61 19 167/82 H 100 03/21/17 07:58 03/21/17 07:58 03/21/17 07:58 03/21/17 07:58 03/21/17 07:58 Intake and Output: 03/21/17 03/21/17 06:59 18:59 Intake Total 580 Balance 580 - Medications Medications: Current Medications Acetaminophen (Tylenol 325mg Tab) 650 mg PO Q6H PRN PRN Reason: Headache Albuterol (Ventolin Hfa 90 Mcg/Actuation (8 G)) 2 puff IH RQ4 PRN PRN Reason: Shortness of Breath Last Admin: 03/21/17 08:02 Dose: 2 puff Guaifenesin/Dextromethorphan (Robitussin Dm) 10 ml PO Q4H PRN PRN Reason: Cough and congestion Last Admin: 03/20/17 01:43 Dose: 10 ml Hydrochlorothiazide (Hydrodiuril) 25 mg PO DAILY [facility] Last Admin: 03/21/17 09:32 Dose: 25 mg Vancomycin/Sodium Chloride (Vancocin) 1 gm in 200 mls @ 133.333 mls/hr IVPB Q12H [facility] Stop: 03/25/17 01:31 Last Admin: 03/21/17 14:09 Dose: Not Given Heparin Sodium/Sodium Chloride (Heparin 83329 Units/250ml 1/2 Normal Saline) 25 ,000 units in 250 mls @ 7.144 mls/hr IV .Q24H PRN; Protocol; 9 UNITS/KG/HR PRN Reason: PROTOCOL Last Admin: 03/21/17 10:54 Dose: 9 units/kg/hr, 7.144 mls/hr Levothyroxine Sodium (Synthroid) 50 mcg PO DAILY@0630 [facility] Last Admin: 03/21/17 05:44 Dose: 50 mcg Lisinopril (Zestril) 10 mg PO DAILY [facility] Last Admin: 03/21/17 09:32 Dose: 10 mg Montelukast Sodium (Singulair) 10 mg PO HS [facility] Last Admin: 03/20/17 21:05 Dose: 10 mg Morphine Sulfate (Morphine) 1 mg IVP Q4 PRN PRN Reason: Pain, severe (8-10) Last Admin: 03/21/17 00:32 Dose: 1 mg Oxycodone/Acetaminophen (Percocet 5/325 Mg Tab) 1 tab PO Q6H PRN PRN Reason: Pain, moderate (4-7) Stop: 03/22/17 15:21 Pantoprazole Sodium (Protonix Inj) 40 mg IVP DAILY [facility] Last Admin: 03/21/17 09:33 Dose: 40 mg Pneumococcal Polyvalent Vaccine (Pneumovax 23 Vaccine) 0.5 ml IM .ONCE ONE Stop: 03/22/17 10:01 Rosuvastatin Calcium (Crestor) 5 mg PO [facility] Last Admin: 03/20/17 21:05 Dose: 5 mg Fluticasone/Salmeterol (Advair Diskus 500/50) 1 puff INH RQ12 [facility] Last Admin: 03/21/17 08:02 Dose: 1 puff - Labs Labs: 03/21/17 07:21 03/21/17 07:21 PT 12.4 SECONDS (9.7-12.2) H 03/19/17 19:53 INR 1.1 03/19/17 19:53 APTT 124 SECONDS (21-34) H* D 03/21/17 06:56
--- NOTE | 2017-03-21 15:45 | CP.PCM.CON ---
History of Present Illness - History of Present Illness History of Present Illness: dictated Past Patient History - Infectious Disease Hx of Infectious Diseases: None - Tetanus Immunizations Tetanus Immunization: Unknown - Past Medical History & Family History Past Medical History?: Yes - Past Social History Smoking Status: Former Smoker - CARDIAC Hx Hypercholesterolemia: Yes Hx Hypertension: Yes - PULMONARY Hx Chronic Obstructive Pulmonary Disease (COPD): Yes - NEUROLOGICAL Hx Neurological Disorder: No - HEENT Hx HEENT Problems: Yes Hx Cataracts: Yes - RENAL Hx Chronic Kidney Disease: No - ENDOCRINE/METABOLIC Hx Hypothyroidism: Yes - HEMATOLOGICAL/ONCOLOGICAL Hx Blood Disorders: No - INTEGUMENTARY Hx Dermatological Problems: Yes Other/Comment: HX:two lumps noted on each side next to under arm - (axillary) pt verbalized Dr. reina. HX: LIPOMA RIGHT CHEST WALL - MUSCULOSKELETAL/RHEUMATOLOGICAL Hx Musculoskeletal Disorders: Yes Hx Back Pain: Yes (LUMBAR) Hx Falls: No Hx Osteoarthritis: Yes (KNEES) Hx Osteomyelitis: Yes Other/Comment: HX: HAMMERTOES(2ND DIGIT-BILATERALLY) - GASTROINTESTINAL Hx Gastrointestinal Disorders: Yes Hx Gastritis: Yes - GENITOURINARY/GYNECOLOGICAL Hx Genitourinary Disorders: No - PSYCHIATRIC Hx Psychophysiologic Disorder: Yes Hx Depression: Yes Hx Substance Use: No - SURGICAL HISTORY Hx Surgeries: Yes Hx Cataract Extraction: Yes (BILATERAL) Hx Dilation and Curettage: Yes Other/Comment: Removal of cyst from ovaries 2010. HX: EXCISION LIPOMA RIGHT CHEST WALL 05/17/14. - ANESTHESIA Hx Anesthesia: Yes Hx Anesthesia Reactions: No Hx Malignant Hyperthermia: No Has any member of the family had a problem w/ anesthesia?: No Meds Allergies/Adverse Reactions: Allergies Allergy/AdvReac Type Severity Reaction Status Date / Time Penicillins Allergy RASH Verified 03/19/17 11:34 - Medications Medications: Current Medications Acetaminophen (Tylenol 325mg Tab) 650 mg PO Q6H PRN PRN Reason: Headache Albuterol (Ventolin Hfa 90 Mcg/Actuation (8 G)) 2 puff IH RQ4 PRN PRN Reason: Shortness of Breath Last Admin: 03/21/17 08:02 Dose: 2 puff Guaifenesin/Dextromethorphan (Robitussin Dm) 10 ml PO Q4H PRN PRN Reason: Cough and congestion Last Admin: 03/20/17 01:43 Dose: 10 ml Hydrochlorothiazide (Hydrodiuril) 25 mg PO DAILY [facility] Last Admin: 03/21/17 09:32 Dose: 25 mg Vancomycin/Sodium Chloride (Vancocin) 1 gm in 200 mls @ 133.333 mls/hr IVPB Q12H [facility] Stop: 03/25/17 01:31 Last Admin: 03/21/17 14:09 Dose: Not Given Heparin Sodium/Sodium Chloride (Heparin 72475 Units/250ml 1/2 Normal Saline) 25 ,000 units in 250 mls @ 7.144 mls/hr IV .Q24H PRN; Protocol; 9 UNITS/KG/HR PRN Reason: PROTOCOL Last Admin: 03/21/17 10:54 Dose: 9 units/kg/hr, 7.144 mls/hr Levothyroxine Sodium (Synthroid) 50 mcg PO DAILY@0630 [facility] Last Admin: 03/21/17 05:44 Dose: 50 mcg Lisinopril (Zestril) 10 mg PO DAILY [facility] Last Admin: 03/21/17 09:32 Dose: 10 mg Montelukast Sodium (Singulair) 10 mg PO [facility] Last Admin: 03/20/17 21:05 Dose: 10 mg Morphine Sulfate (Morphine) 1 mg IVP Q4 PRN PRN Reason: Pain, severe (8-10) Last Admin: 03/21/17 00:32 Dose: 1 mg Oxycodone/Acetaminophen (Percocet 5/325 Mg Tab) 1 tab PO Q6H PRN PRN Reason: Pain, moderate (4-7) Stop: 03/22/17 15:21 Pantoprazole Sodium (Protonix Inj) 40 mg IVP DAILY [facility] Last Admin: 03/21/17 09:33 Dose: 40 mg Pneumococcal Polyvalent Vaccine (Pneumovax 23 Vaccine) 0.5 ml IM .ONCE ONE Stop: 03/22/17 10:01 Rosuvastatin Calcium (Crestor) 5 mg PO [facility] Last Admin: 03/20/17 21:05 Dose: 5 mg Fluticasone/Salmeterol (Advair Diskus 500/50) 1 puff INH RQ12 [facility] Last Admin: 03/21/17 08:02 Dose: 1 puff Results - Vital Signs Recent Vital Signs: Last Vital Signs Temp 97.8 F 03/21/17 15:20 Pulse 60 03/21/17 15:20 Resp 20 03/21/17 15:20 BP 134/68 03/21/17 15:20 Pulse Ox 95 03/21/17 15:20 - Labs Result Diagrams: 03/21/17 07:21 03/21/17 07:21 Labs: Laboratory Results - last 24 hr 03/20/17 03/21/17 03/21/17 19:47 06:56 07:21 WBC 7.4 RBC 4.39 Hgb 12.8 Hct 38.1 MCV 86.8 MCH 29.1 MCHC 33.5 RDW 13.5 Plt Count 225 MPV 9.3 Neut % (Auto) 45.7 L Lymph % (Auto) 43.6 H [place] % (Auto) 7.0 Eos % (Auto) 2.9 Baso % (Auto) 0.8 Neut # 3.4 Lymph # 3.2 [place] # 0.5 Eos # 0.2 Baso # 0.1 APTT 151 H* D 124 H* D Sodium Potassium Chloride Carbon Dioxide Anion Gap BUN Creatinine Est GFR ( Amer) Est GFR (Non-Af Amer) Random Glucose Calcium Total Bilirubin AST ALT Alkaline Phosphatase Total Protein Albumin Globulin Albumin/Globulin Ratio 03/21/17 07:21 WBC RBC Hgb Hct MCV MCH MCHC RDW Plt Count MPV Neut % (Auto) Lymph % (Auto) [place] % (Auto) Eos % (Auto) Baso % (Auto) Neut # Lymph # [place] # Eos # Baso # APTT Sodium 136 Potassium 3.7 Chloride 102 Carbon Dioxide 23 Anion Gap 15 BUN 9 Creatinine 0.7 Est GFR ( Amer) > 60 Est GFR (Non-Af Amer) > 60 Random Glucose 87 Calcium 9.0 Total Bilirubin 0.7 AST 22 ALT 29 Alkaline Phosphatase 55 Total Protein 6.5 Albumin 3.6 Globulin 2.9 Albumin/Globulin Ratio 1.2
[2017-03-21] MEDS: guaiFENesin DM 200 mg-20 mg/10 ml UD PO PRN (21:02)
--- NOTE | 2017-03-21 21:52 | CP.PCM.PN ---
<Vijay Herrera - Last Filed: 03/21/17 21:49> Subjective - Date & Time of Evaluation Date of Evaluation: 03/21/17 Time of Evaluation: 07:50 - Subjective Subjective: PGY1 Medicine Note for Dr. Brennan Patient was seen and examined at bedside. Patient reports she has decreased pain in her right foot, primarily in her 2nd toe. Pain medications are controlling the pain very well. She states that she has been able to get up and walk on the foot to the bathroom without too much difficulty. States she is a little unstable due to the pain but is able to walk with a help of a cane or crutch, but states she will never use a cane. Denied fever, chills, headache, chest pain, SOB, abdominal pain, n/v/d/c, or urinary symptoms. Objective - Vital Signs/Intake and Output Vital Signs (last 24 hours): Temp Pulse Resp BP Pulse Ox 97.8 F 60 20 134/68 95 03/21/17 15:20 03/21/17 15:20 03/21/17 15:20 03/21/17 15:20 03/21/17 15:20 - Medications Medications: Current Medications Acetaminophen (Tylenol 325mg Tab) 650 mg PO Q6H PRN PRN Reason: Headache Albuterol (Ventolin Hfa 90 Mcg/Actuation (8 G)) 2 puff IH RQ4 PRN PRN Reason: Shortness of Breath Last Admin: 03/21/17 20:05 Dose: 2 puff Enoxaparin Sodium (Lovenox) 40 mg SC DAILY [facility] Guaifenesin/Dextromethorphan (Robitussin Dm) 10 ml PO Q4H PRN PRN Reason: Cough and congestion Last Admin: 03/21/17 21:02 Dose: 10 ml Hydrochlorothiazide (Hydrodiuril) 25 mg PO DAILY [facility] Last Admin: 03/21/17 09:32 Dose: 25 mg Vancomycin/Sodium Chloride (Vancocin) 1 gm in 200 mls @ 133.333 mls/hr IVPB Q12H [facility] Stop: 03/26/17 20:01 Last Admin: 03/21/17 19:01 Dose: 133.333 mls/hr Levothyroxine Sodium (Synthroid) 50 mcg PO DAILY@0630 [facility] Last Admin: 03/21/17 05:44 Dose: 50 mcg Lisinopril (Zestril) 10 mg PO DAILY [facility] Last Admin: 03/21/17 09:32 Dose: 10 mg Montelukast Sodium (Singulair) 10 mg PO [facility] Last Admin: 03/21/17 21:02 Dose: 10 mg Morphine Sulfate (Morphine) 1 mg IVP Q4 PRN PRN Reason: Pain, severe (8-10) Last Admin: 03/21/17 19:00 Dose: 1 mg Oxycodone/Acetaminophen (Percocet 5/325 Mg Tab) 1 tab PO Q6H PRN PRN Reason: Pain, moderate (4-7) Stop: 03/22/17 15:21 Pantoprazole Sodium (Protonix Inj) 40 mg IVP DAILY [facility] Last Admin: 03/21/17 09:33 Dose: 40 mg Pneumococcal Polyvalent Vaccine (Pneumovax 23 Vaccine) 0.5 ml IM .ONCE ONE Stop: 03/22/17 10:01 Rosuvastatin Calcium (Crestor) 5 mg PO [facility] Last Admin: 03/21/17 21:02 Dose: 5 mg Fluticasone/Salmeterol (Advair Diskus 500/50) 1 puff INH RQ12 [facility] Last Admin: 03/21/17 20:04 Dose: 1 puff - Labs Labs: 03/21/17 07:21 03/21/17 07:21 PT 12.4 SECONDS (9.7-12.2) H 03/19/17 19:53 INR 1.1 03/19/17 19:53 APTT 51 SECONDS (21-34) H D 03/21/17 17:17 - Constitutional Appears: Non-toxic, No Acute Distress - Head Exam Head Exam: ATRAUMATIC, NORMOCEPHALIC - Eye Exam Eye Exam: EOMI - ENT Exam ENT Exam: Mucous Membranes Moist - Respiratory Exam Respiratory Exam: Clear to Ausculation Bilateral, NORMAL BREATHING PATTERN. absent: Accessory Muscle Use, Respiratory Distress - Cardiovascular Exam Cardiovascular Exam: REGULAR RHYTHM, +S1, +S2 - GI/Abdominal Exam GI & Abdominal Exam: Soft, Normal Bowel Sounds. absent: Distended, Guarding, Tenderness - Extremities Exam Extremities Exam: absent: Calf Tenderness, Pedal Edema Additional comments: 2nd and 3rd digits on right foot slightly darker then rest of foot, but color is improving. Patient is able to tolerate palpation today. big improvement from admission. - Neurological Exam Neurological Exam: Alert, Awake, Oriented x3 - Psychiatric Exam Psychiatric exam: Normal Affect, Normal Mood - Skin Skin Exam: Dry, Normal Color, Warm Assessment and Plan - Assessment and Plan (Free Text) Plan: Right foot pain s/p 2nd digit arthroplasty with K wire fixation 01/21/2017 Vanco 1g IV Q12H Percocet 325/5mg 1 tab Q6H PRN Heparin Drip was started 03/19/17 Consulted Vascular Surgery - Dr. Lay - acute vascular compromise to extremities unlikely CTA 03/19 - unremarkable, no evidence of peripheral disease. Consulted Podiatry - Dr. Grace - help appreciated PICC placement tomorrow - re-read of MRI from 03/08 shows OM. Will continue Vanco at this time. -Vanco Trough 13.7 HTN Lisinopril 10mg daily, HCTZ 25mg PO daily A1c 5.8 TSH 1.86 lipid panel -WNL Hypothyroid Synthroid 50mcg daily HLD Crestor 10mg daily Asthma Singular 10mg daily Advair Diskus 500-50mcg/dose 1 puff daily Ventolin HFA 108 (90 base) mcg/act 2 puffs Q4H PRN Polyarthritis Celebrex 100mg daily Prophylactic Care Heparin Drip discontinued. Started on Lovenox 40mg SC daily Pepcid 20mg daily Tylenol 650mg Q6H for headaches Case discussed with Dr. Mika Herrera PGY1 <Bolivar Brennan - Last Filed: 03/22/17 17:54> Objective - Vital Signs/Intake and Output Vital Signs (last 24 hours): Temp Pulse Resp BP Pulse Ox 98.2 F 62 20 102/63 95 03/22/17 15:29 03/22/17 15:29 03/22/17 15:29 03/22/17 15:29 03/22/17 15:29 Intake and Output: 03/22/17 03/22/17 06:59 18:59 Intake Total 920 600 Balance 920 600 - Medications Medications: Current Medications Acetaminophen (Tylenol 325mg Tab) 650 mg PO Q6H PRN PRN Reason: Headache Albuterol (Ventolin Hfa 90 Mcg/Actuation (8 G)) 2 puff IH RQ4 PRN PRN Reason: Shortness of Breath Last Admin: 03/22/17 10:05 Dose: 2 puff Enoxaparin Sodium (Lovenox) 40 mg SC DAILY [facility] Last Admin: 03/22/17 09:26 Dose: 40 mg Guaifenesin/Dextromethorphan (Robitussin Dm) 10 ml PO Q4H PRN PRN Reason: Cough and congestion Last Admin: 03/21/17 21:02 Dose: 10 ml Hydrochlorothiazide (Hydrodiuril) 25 mg PO DAILY [facility] Last Admin: 03/22/17 09:26 Dose: 25 mg Vancomycin/Sodium Chloride (Vancocin) 1 gm in 200 mls @ 133.333 mls/hr IVPB Q12H [facility] Stop: 03/26/17 20:01 Last Admin: 03/22/17 08:55 Dose: 133.333 mls/hr Levothyroxine Sodium (Synthroid) 50 mcg PO DAILY@0630 [facility] Last Admin: 03/22/17 05:35 Dose: 50 mcg Lisinopril (Zestril) 10 mg PO DAILY [facility] Last Admin: 03/22/17 09:26 Dose: 10 mg Montelukast Sodium (Singulair) 10 mg PO HS [facility] Last Admin: 03/21/17 21:02 Dose: 10 mg Morphine Sulfate (Morphine) 1 mg IVP Q4 PRN PRN Reason: Pain, severe (8-10) Last Admin: 03/21/17 19:00 Dose: 1 mg Pantoprazole Sodium (Protonix Ec Tab) 40 mg PO DAILY [facility] Rosuvastatin Calcium (Crestor) 5 mg PO HS [facility] Last Admin: 03/21/17 21:02 Dose: 5 mg Fluticasone/Salmeterol (Advair Diskus 500/50) 1 puff INH RQ12 [facility] Last Admin: 03/22/17 10:05 Dose: 1 puff - Labs Labs: 03/22/17 08:17 03/22/17 08:17 PT 12.4 SECONDS (9.7-12.2) H 03/19/17 19:53 INR 1.1 03/19/17 19:53 APTT 51 SECONDS (21-34) H D 03/21/17 17:17 Attending/Attestation - Attestation I have personally seen and examined this patient.: Yes I have fully participated in the care of the patient.: Yes I have reviewed all pertinent clinical information, including history, physical exam and plan: Yes Notes (Text): 03/22/17 17:53 Patient was seen and examined at bedside with the resident States that right foot pain has decreased. CT angiogram of the lower extremity report reviewed. Discussed with [facility] surgery. Patient has been taken off heparin drip now. Patient will need a PICC line for long-term antibiotics for osteomyelitis Discussed the plan of care with the resident and agree with the assessment and documented above.
--- NOTE | 2017-03-22 03:04 | CON ---
DATE: REQUESTED BY: Dr. 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 She says that she had some surgery done on her right foot status post pin placement on the second toe, was done on 01/21/2017. She states a week after her whole foot changed black and became very painful and second toe has not returned to the normal color. She still has throbbing pain in it and she is not able to let me touch it even. She was also having fever and chills and she has intense pain and she is here and I am asked to see her. She also had an MRI. PAST MEDICAL HISTORY: As above. COPD, pneumonia, asthma, she also has history of cataract, no kidney problem, she has history of hypothyroidism, history of two lumps, lipoma on the right chest wall and she has history of back pain in the knees and lumbar area and history of hammertoes bilaterally. She has had previous surgeries. PAST SURGICAL HISTORY: Right foot second toe arthroplasty with K-wire fixation, she says it was crooked, lump removal of right breast, cyst removal from uterus, glaucoma surgery. SOCIAL HISTORY: She is a former smoker. Alcohol occasionally. No drug abuse. FAMILY HISTORY: Unknown ALLERGIES: SHE IS ALLERGIC TO PENICILLIN. SHE GETS RASH AND SHE SAYS SHE SWELLS UP. MEDICATIONS: At the present time, she is getting Tylenol, Ventolin inhaler, Robitussin, heparin subcutaneous, , Synthroid, Zestril, Singulair, morphine, Percocet, Protonix, Pneumovax, Crestor, Advair and she is on vancomycin 1 g q. 12 hours and I do not know why it was not given, will have to find out that. REVIEW OF SYSTEMS: She has subjective fever and chills, swelling of the second toe and this problem she says started after she did surgery and I asked her why the surgery need to be done in the first place, then she said that the toe was crooked. She denies any ear, nose or throat symptoms. Denies any chest pain. No shortness of breath. She does state asthma, she is on inhaler. She denies any cardiac problems at this time. Does suffer from joint pains, and has this second toe, which is discolored and swollen. PHYSICAL EXAMINATION VITAL SIGNS: I find her temperature is 97.8, pulse is 60, blood pressure 134/68 and respiratory rate is 20. GENERAL: She is alert and oriented, able to give history. HEENT: Head is atraumatic and normocephalic. Pupils are reacting to light. Eye movements are unremarkable. NECK: Supple. JVP is flat. LUNGS: Clear. No crackles or rales present. Occasional wheeze, otherwise clear. HEART: S1 and S2 is regular. No murmurs appreciated. ABDOMEN: Soft and nontender. No guarding, no rigidity present. EXTREMITIES: Right foot second toe is very tender and third is slightly tender, but great toe appears unremarkable. She does not allow me to touch much of the foot. LABORATORY DATA: Labs are noted. White count is 7.4, hemoglobin 12.8, hematocrit 38.1, platelet count is 225. PTT, she is on heparin, which is on hold at this time because of the increased PTT. Sodium is 136, potassium 3.7, chloride is 102, CO2 is 23, BUN is 9, creatinine is 0.7. Microwise, there is no report and then there was foot x-ray and the foot x-ray shows interval partial dissection of second distal proximal phalanx, no periosteal reaction and unexpectedly seen surrounding the site to suggest radiological osteomyelitis, third and forth hammertoes, there is ossification involving the third and forth, it does not say much about the second toe. DIAGNOSES: Interval postop changes. No gross periosteal reaction seen to suggest osteomyelitis. She also had an angiography done today, and it says unremarkable CT angiography of abdomen and pelvis. There is no evidence of peripheral vascular disease. The patient is on vancomycin 1 g q 12 hours. ASSESSMENT: She is 71 years old and I would suggest vancomycin weekend trough, second toe does look disfigured, but is postop, I would suggest to get [employer] to be involved. I will figure out what is happening with the toe as toe is very sensitive and she is in pain. We will continue with vancomycin, and get vancomycin weekend trough and we will follow vascular and Podiatry evaluation. She has multiple medical problems and issues. James Cartwright MD [facility] # [id number]
[2017-03-22] MEDS: Levothyroxine 50 MCG TAB PO SCH (05:35)
[2017-03-22 08:27] LABS: BASO # 0.1 K/uL (0.0-0.2); BASO % 0.7 % (0.0-2.0); EOS # 0.2 K/uL (0.0-0.7); EOS % 3.1 % (0.0-4.0); HEMATOCRIT 40.3 % (34.0-47.0); LYMPH # 3.2 K/uL (1.0-4.3); LYMPH % 39.9 % (20.0-40.0); MEAN CELL VOLUME 86.3 fL (81.0-99.0); MEAN CORPUSCULAR HEMOGLOBIN 28.5 pg (27.0-31.0); MEAN PLATELET VOLUME 9.3 fL (7.2-11.7); MONO # 0.7 K/uL (0.0-0.8); MONO % 8.4 % (0.0-10.0); RED CELL DISTRIBUTION WIDTH 13.6 % (11.5-14.5)
[2017-03-22 08:33] LABS: CHLORIDE 94 mmol/L (98-107); POTASSIUM 3.8 mmol/L (3.6-5.2); SODIUM 135 mmol/L (132-148)
[2017-03-22 08:35] LABS: ALB/GLOB RATIO 1.2 (1.0-2.1); ALKALINE PHOSPHATASE 56 U/L (38-126); AST/SGOT 21 U/L (14-36); BILIRUBIN,TOTAL 0.7 mg/dL (0.2-1.3); CARBON DIOXIDE 25 mmol/L (22-30); GFR AFRICAN-AMERICAN > 60; TOTAL PROTEIN 6.8 g/dL (6.3-8.3)
[2017-03-22 08:36] LABS: ALT/SGPT 25 U/L (9-52); BLOOD UREA NITROGEN 12 mg/dL (7-17); CALCIUM 8.4 mg/dl (8.6-10.4); GLUCOSE,RANDOM 86 mg/dL (65-105)
[2017-03-22] MEDS: Vancomycin 1 gm/NS 200 ml 1 GM/200 ML BAG IVPB SCH ×2 (08:55→19:32)
[2017-03-22] MEDS: Enoxaparin 40 mg Syringe SC SCH (09:26)
[2017-03-22] MEDS ORDERED: Pneumococcal 23-Valent Vaccine IM ONE (10:00)
[2017-03-22] MEDS: Fluticasone-Salmeterol 500-50mcg Diskus INH SCH ×2 (10:05→20:14)
[2017-03-22] MEDS: Albuterol HFA 90 mcg/actuation (8 g) IH PRN ×2 (10:05→20:14)
--- NOTE | 2017-03-22 12:12 | CP.PCM.PN ---
Subjective - Date & Time of Evaluation Date of Evaluation: 03/22/17 Time of Evaluation: 12:12 - Subjective Subjective: 71 year old female was seen resting comfortably at bedside this morning regarding right second digit pain. Patient NAD, AAOx3. Patient states that her toe is getting better and less swollen. She denies any n/v/f/c/sob/cp. Objective - Vital Signs/Intake and Output Vital Signs (last 24 hours): Temp Pulse Resp BP Pulse Ox 98.4 F 55 L 18 133/76 96 03/22/17 08:00 03/22/17 08:00 03/22/17 08:00 03/22/17 08:00 03/22/17 08:00 Intake and Output: 03/22/17 03/22/17 06:59 18:59 Intake Total 920 Balance 920 - Medications Medications: Current Medications Acetaminophen (Tylenol 325mg Tab) 650 mg PO Q6H PRN PRN Reason: Headache Albuterol (Ventolin Hfa 90 Mcg/Actuation (8 G)) 2 puff IH RQ4 PRN PRN Reason: Shortness of Breath Last Admin: 03/22/17 10:05 Dose: 2 puff Enoxaparin Sodium (Lovenox) 40 mg SC DAILY [facility] Last Admin: 03/22/17 09:26 Dose: 40 mg Guaifenesin/Dextromethorphan (Robitussin Dm) 10 ml PO Q4H PRN PRN Reason: Cough and congestion Last Admin: 03/21/17 21:02 Dose: 10 ml Hydrochlorothiazide (Hydrodiuril) 25 mg PO DAILY [facility] Last Admin: 03/22/17 09:26 Dose: 25 mg Vancomycin/Sodium Chloride (Vancocin) 1 gm in 200 mls @ 133.333 mls/hr IVPB Q12H [facility] Stop: 03/26/17 20:01 Last Admin: 03/22/17 08:55 Dose: 133.333 mls/hr Levothyroxine Sodium (Synthroid) 50 mcg PO DAILY@0630 [facility] Last Admin: 03/22/17 05:35 Dose: 50 mcg Lisinopril (Zestril) 10 mg PO DAILY [facility] Last Admin: 03/22/17 09:26 Dose: 10 mg Montelukast Sodium (Singulair) 10 mg PO HS [facility] Last Admin: 03/21/17 21:02 Dose: 10 mg Morphine Sulfate (Morphine) 1 mg IVP Q4 PRN PRN Reason: Pain, severe (8-10) Last Admin: 03/21/17 19:00 Dose: 1 mg Oxycodone/Acetaminophen (Percocet 5/325 Mg Tab) 1 tab PO Q6H PRN PRN Reason: Pain, moderate (4-7) Stop: 03/22/17 15:21 Pantoprazole Sodium (Protonix Inj) 40 mg IVP DAILY [facility] Last Admin: 03/22/17 09:26 Dose: 40 mg Rosuvastatin Calcium (Crestor) 5 mg PO HS [facility] Last Admin: 03/21/17 21:02 Dose: 5 mg Fluticasone/Salmeterol (Advair Diskus 500/50) 1 puff INH RQ12 [facility] Last Admin: 03/22/17 10:05 Dose: 1 puff - Labs Labs: 03/22/17 08:17 03/22/17 08:17 PT 12.4 SECONDS (9.7-12.2) H 03/19/17 19:53 INR 1.1 03/19/17 19:53 APTT 51 SECONDS (21-34) H D 03/21/17 17:17 - Constitutional Appears: Well, Non-toxic, No Acute Distress - Extremities Exam Additional comments: Right lower extremity focused exam: Vasc: DP and PT pulses palpable. Skin temperature warm to cool from proximal to distal. Neuro: Gross sensation intact Ortho: Tenderness on palpation noted to the right 2nd digit Derm: Decreased edema noted to right 2nd digit. No open lesions, no drainage, no probe to bone noted. Right 2nd digit skin is slightly discolored dark. - Neurological Exam Neurological Exam: Alert, Awake, Oriented x3 - Psychiatric Exam Psychiatric exam: Normal Affect, Normal Mood Assessment and Plan - Assessment and Plan (Free Text) Assessment: 71 year old female 8 weeks status post right 2nd digit hammertoe correction Plan: patient examined and evaluated discussed in detail with Dr. Grace chart, labs, vitals reviewed;afebrile, WBC 8 no dressing needed continue pain medication per primary continue IV abx per primary podiatry will continue to follow patient while in house
--- NOTE | 2017-03-22 14:12 | RAD ---
PROCEDURE: CHEST RADIOGRAPH, 1 VIEW HISTORY: verify right PICC COMPARISON: None available. FINDINGS: The right PICC line terminates in the SVC. LUNGS: There is mild pulmonary venous congestion. There is bibasilar atelectasis. No lobar pneumonia. PLEURA: No pneumothorax or pleural fluid seen. CARDIOVASCULAR: Normal. OSSEOUS STRUCTURES: No significant abnormalities. VISUALIZED UPPER ABDOMEN: Normal. OTHER FINDINGS: None. IMPRESSION: 1. Right PICC line terminates in the SVC. No pneumothorax. 2. No acute findings.
--- NOTE | 2017-03-22 21:24 | CP.PCM.PN ---
<Vijay Herrera - Last Filed: 03/22/17 21:19> Subjective - Date & Time of Evaluation Date of Evaluation: 03/22/17 Time of Evaluation: 07:50 - Subjective Subjective: PGY1 Medicine Note for Dr. Brennan Patient was seen and examined at bedside. Patient reports she has decreased pain in her right foot, still limited to her 2nd toe. Pain medications are controlling the pain well. She states that she has been able to get up and walk on the foot to the bathroom with some difficulty due to the pain. Denied fever, chills, headache, chest pain, SOB, abdominal pain, n/v/d/c, or urinary symptoms. Objective - Vital Signs/Intake and Output Vital Signs (last 24 hours): Temp Pulse Resp BP Pulse Ox 98.2 F 62 20 102/63 95 03/22/17 15:29 03/22/17 15:29 03/22/17 15:29 03/22/17 15:29 03/22/17 15:29 Intake and Output: 03/22/17 03/23/17 18:59 06:59 Intake Total 600 200 Balance 600 200 - Medications Medications: Current Medications Acetaminophen (Tylenol 325mg Tab) 650 mg PO Q6H PRN PRN Reason: Headache Albuterol (Ventolin Hfa 90 Mcg/Actuation (8 G)) 2 puff IH RQ4 PRN PRN Reason: Shortness of Breath Last Admin: 03/22/17 20:14 Dose: 2 puff Enoxaparin Sodium (Lovenox) 40 mg SC DAILY [facility] Last Admin: 03/22/17 09:26 Dose: 40 mg Guaifenesin/Dextromethorphan (Robitussin Dm) 10 ml PO Q4H PRN PRN Reason: Cough and congestion Last Admin: 03/21/17 21:02 Dose: 10 ml Hydrochlorothiazide (Hydrodiuril) 25 mg PO DAILY [facility] Last Admin: 03/22/17 09:26 Dose: 25 mg Vancomycin/Sodium Chloride (Vancocin) 1 gm in 200 mls @ 133.333 mls/hr IVPB Q12H [facility] Stop: 03/26/17 20:01 Last Admin: 03/22/17 19:32 Dose: 133.333 mls/hr Levothyroxine Sodium (Synthroid) 50 mcg PO DAILY@0630 [facility] Last Admin: 03/22/17 05:35 Dose: 50 mcg Lisinopril (Zestril) 10 mg PO DAILY [facility] Last Admin: 03/22/17 09:26 Dose: 10 mg Montelukast Sodium (Singulair) 10 mg PO HS [facility] Last Admin: 03/21/17 21:02 Dose: 10 mg Morphine Sulfate (Morphine) 1 mg IVP Q4 PRN PRN Reason: Pain, severe (8-10) Last Admin: 03/22/17 19:46 Dose: 1 mg Pantoprazole Sodium (Protonix Ec Tab) 40 mg PO DAILY [facility] Rosuvastatin Calcium (Crestor) 5 mg PO [facility] Last Admin: 03/21/17 21:02 Dose: 5 mg Fluticasone/Salmeterol (Advair Diskus 500/50) 1 puff INH RQ12 [facility] Last Admin: 03/22/17 20:14 Dose: 1 puff - Labs Labs: 03/22/17 08:17 03/22/17 08:17 PT 12.4 SECONDS (9.7-12.2) H 03/19/17 19:53 INR 1.1 03/19/17 19:53 APTT 51 SECONDS (21-34) H D 03/21/17 17:17 - Constitutional Appears: Non-toxic, No Acute Distress - Head Exam Head Exam: ATRAUMATIC, NORMOCEPHALIC - Eye Exam Eye Exam: EOMI - ENT Exam ENT Exam: Mucous Membranes Moist - Respiratory Exam Respiratory Exam: Clear to Ausculation Bilateral, NORMAL BREATHING PATTERN. absent: Accessory Muscle Use, Respiratory Distress - Cardiovascular Exam Cardiovascular Exam: REGULAR RHYTHM, +S1, +S2 - GI/Abdominal Exam GI & Abdominal Exam: Soft, Normal Bowel Sounds. absent: Distended, Tenderness - Extremities Exam Extremities Exam: Normal Inspection. absent: Calf Tenderness, Pedal Edema Additional comments: Pain to palpation to 2nd digit on right foot. slight discoloration of 2nd and 3rd digits on right toes - Neurological Exam Neurological Exam: Alert, Awake, Oriented x3 - Psychiatric Exam Psychiatric exam: Normal Affect, Normal Mood - Skin Skin Exam: Dry, Normal Color, Warm Assessment and Plan - Assessment and Plan (Free Text) Plan: Right foot pain s/p 2nd digit arthroplasty with K wire fixation 01/21/2017 Vanco 1g IV Q12H Percocet 325/5mg 1 tab Q6H PRN Heparin Drip was started 03/19/17 Consulted Vascular Surgery - Dr. Lay - acute vascular compromise to extremities unlikely CTA 03/19 - unremarkable, no evidence of peripheral disease. Consulted Podiatry - Dr. Grace - help appreciated Consulted ID - Dr. Alcala - help appreciated PICC line placed today. Awaiting placement, either needs to be changed to IV abx once daily, or will need to stay in hospital for total of 6 weeks for IV abx. - Get weekend Vanco trough HTN Lisinopril 10mg daily, HCTZ 25mg PO daily A1c 5.8 TSH 1.86 lipid panel -WNL Hypothyroid Synthroid 50mcg daily HLD Crestor 10mg daily Asthma Singular 10mg daily Advair Diskus 500-50mcg/dose 1 puff daily Ventolin HFA 108 (90 base) mcg/act 2 puffs Q4H PRN Polyarthritis Celebrex 100mg daily Prophylactic Care Heparin Drip discontinued. Started on Lovenox 40mg SC daily Pepcid 20mg daily Tylenol 650mg Q6H for headaches Case discussed with Dr. Mika Herrera PGY1 <Bolivar Brennan - Last Filed: 03/23/17 10:12> Objective - Vital Signs/Intake and Output Vital Signs (last 24 hours): Temp Pulse Resp BP Pulse Ox 98 F 63 20 129/78 95 03/23/17 08:27 03/23/17 08:27 03/23/17 08:27 03/23/17 08:27 03/23/17 08:27 - Medications Medications: Current Medications Acetaminophen (Tylenol 325mg Tab) 650 mg PO Q6H PRN PRN Reason: Headache Albuterol (Ventolin Hfa 90 Mcg/Actuation (8 G)) 2 puff IH RQ4 PRN PRN Reason: Shortness of Breath Last Admin: 03/23/17 09:01 Dose: 2 puff Enoxaparin Sodium (Lovenox) 40 mg SC DAILY [facility] Last Admin: 03/23/17 09:32 Dose: 40 mg Guaifenesin/Dextromethorphan (Robitussin Dm) 10 ml PO Q4H PRN PRN Reason: Cough and congestion Last Admin: 03/22/17 21:30 Dose: 10 ml Hydrochlorothiazide (Hydrodiuril) 25 mg PO DAILY [facility] Last Admin: 03/23/17 09:33 Dose: 25 mg Vancomycin/Sodium Chloride (Vancocin) 1 gm in 200 mls @ 133.333 mls/hr IVPB Q12H [facility] Stop: 03/26/17 20:01 Last Admin: 03/23/17 00:53 Dose: 133.333 mls/hr Levothyroxine Sodium (Synthroid) 50 mcg PO DAILY@0630 [facility] Last Admin: 03/23/17 05:37 Dose: 50 mcg Lisinopril (Zestril) 10 mg PO DAILY [facility] Last Admin: 03/23/17 09:33 Dose: 10 mg Montelukast Sodium (Singulair) 10 mg PO HS [facility] Last Admin: 03/22/17 21:30 Dose: 10 mg Morphine Sulfate (Morphine) 1 mg IVP Q4 PRN PRN Reason: Pain, severe (8-10) Last Admin: 03/22/17 19:46 Dose: 1 mg Pantoprazole Sodium (Protonix Ec Tab) 40 mg PO DAILY [facility] Last Admin: 03/23/17 09:33 Dose: 40 mg Rosuvastatin Calcium (Crestor) 5 mg PO HS [facility] Last Admin: 03/22/17 21:30 Dose: 5 mg Fluticasone/Salmeterol (Advair Diskus 500/50) 1 puff INH RQ12 [facility] Last Admin: 03/23/17 08:54 Dose: 1 puff - Labs Labs: 03/23/17 07:38 03/23/17 07:38 PT 12.4 SECONDS (9.7-12.2) H 03/19/17 19:53 INR 1.1 03/19/17 19:53 APTT 51 SECONDS (21-34) H D 03/21/17 17:17 Attending/Attestation - Attestation I have personally seen and examined this patient.: Yes I have fully participated in the care of the patient.: Yes I have reviewed all pertinent clinical information, including history, physical exam and plan: Yes Notes (Text): 03/23/17 10:11 Patient was seen and examined at bedside with the resident States that the pain in the foot and the toes is improving Patient received a PICC line for long-term antibiotics I discussed the plan of care with the resident and agree with the assessment and plan documented by the resident
[2017-03-22] MEDS: guaiFENesin DM 200 mg-20 mg/10 ml UD PO PRN (21:30)
--- NOTE | 2017-03-23 00:52 | CP.PCM.PN ---
<Hollie Hou - Last Filed: 03/23/17 00:49> Subjective - Date & Time of Evaluation Date of Evaluation: 03/23/17 Time of Evaluation: 00:00 - Subjective Subjective: Medicine Note for Dr. Brennan Patient was seen and examined at bedside. Patient is resting. No acute complaints, pain is well controlled. Denied fever, chills, headache, chest pain , abdominal pain, n/v/d/c, or urinary symptoms. Objective - Vital Signs/Intake and Output Vital Signs (last 24 hours): Temp Pulse Resp BP Pulse Ox 98.2 F 62 20 102/63 95 03/22/17 15:29 03/22/17 15:29 03/22/17 15:29 03/22/17 15:29 03/22/17 15:29 Intake and Output: 03/22/17 03/23/17 18:59 06:59 Intake Total 600 Balance 600 - Medications Medications: Current Medications Acetaminophen (Tylenol 325mg Tab) 650 mg PO Q6H PRN PRN Reason: Headache Albuterol (Ventolin Hfa 90 Mcg/Actuation (8 G)) 2 puff IH RQ4 PRN PRN Reason: Shortness of Breath Last Admin: 03/22/17 20:14 Dose: 2 puff Enoxaparin Sodium (Lovenox) 40 mg SC DAILY [facility] BEDS AT [facility] Last Admin: 03/22/17 09:26 Dose: 40 mg Guaifenesin/Dextromethorphan (Robitussin Dm) 10 ml PO Q4H PRN PRN Reason: Cough and congestion Last Admin: 03/22/17 21:30 Dose: 10 ml Hydrochlorothiazide (Hydrodiuril) 25 mg PO DAILY [facility] 234 BEDS AT [facility] Last Admin: 03/22/17 09:26 Dose: 25 mg Vancomycin/Sodium Chloride (Vancocin) 1 gm in 200 mls @ 133.333 mls/hr IVPB Q12H [facility] 234 BEDS AT [facility] Stop: 03/26/17 20:01 Last Admin: 03/22/17 19:32 Dose: 133.333 mls/hr Levothyroxine Sodium (Synthroid) 50 mcg PO DAILY@0630 [facility] 234 B[facility]S [facility] Last Admin: 03/22/17 05:35 Dose: 50 mcg Lisinopril (Zestril) 10 mg PO DAILY [facility] 234 [facility]S [facility] Last Admin: 03/22/17 09:26 Dose: 10 mg Montelukast Sodium (Singulair) 10 mg PO HS [facility] 234 B[facility]S [facility] Last Admin: 03/22/17 21:30 Dose: 10 mg Morphine Sulfate (Morphine) 1 mg IVP Q4 PRN PRN Reason: Pain, severe (8-10) Last Admin: 03/22/17 19:46 Dose: 1 mg Pantoprazole Sodium (Protonix Ec Tab) 40 mg PO DAILY [facility] 234 B[facility]S [facility] Rosuvastatin Calcium (Crestor) 5 mg PO HS [facility] 234 [facility]S [facility] Last Admin: 03/22/17 21:30 Dose: 5 mg Fluticasone/Salmeterol (Advair Diskus 500/50) 1 puff INH RQ12 [facility] Last Admin: 03/22/17 20:14 Dose: 1 puff - Labs Labs: 03/22/17 08:17 03/22/17 08:17 PT 12.4 SECONDS (9.7-12.2) H 03/19/17 19:53 INR 1.1 03/19/17 19:53 APTT 51 SECONDS (21-34) H D 03/21/17 17:17 - Constitutional Appears: No Acute Distress - Head Exam Head Exam: NORMAL INSPECTION, NORMOCEPHALIC - Eye Exam Eye Exam: EOMI, Normal appearance, PERRL Pupil Exam: NORMAL ACCOMODATION - ENT Exam ENT Exam: Mucous Membranes Moist - Respiratory Exam Respiratory Exam: Clear to Ausculation Bilateral, NORMAL BREATHING PATTERN. absent: Decreased Breath Sounds, Wheezes - Cardiovascular Exam Cardiovascular Exam: REGULAR RHYTHM, RRR, +S1, +S2 - GI/Abdominal Exam GI & Abdominal Exam: Soft, Normal Bowel Sounds. absent: Distended, Tenderness - Extremities Exam Additional comments: Pain to palpation to 2nd digit on right foot. slight discoloration of 2nd and 3rd digits on right toes RIGHT ARM PICC LINE - Neurological Exam Neurological Exam: Alert, Awake, Oriented x3 - Psychiatric Exam Psychiatric exam: Normal Affect, Normal Mood - Skin Skin Exam: Dry, Intact, Normal Color, Warm Assessment and Plan - Assessment and Plan (Free Text) Plan: Right foot pain s/p 2nd digit arthroplasty with K wire fixation 01/21/2017 Consulted Vascular Surgery - Dr. Lay - acute vascular compromise to extremities unlikely CTA 03/19 - unremarkable, no evidence of peripheral disease. Consulted Podiatry - Dr. Grace - help appreciated Consulted ID - Dr. Alcala - help appreciated Heparin Drip was started 03/19/17 Vanco 1g IV Q12H Morphine 1mg IVP Q4H PRN PICC line placed today. Awaiting placement, either needs to be changed to IV abx once daily, or will need to stay in hospital for total of 6 weeks for IV abx. HTN Lisinopril 10mg daily, HCTZ 25mg PO daily A1c 5.8 TSH 1.86 lipid panel -WNL Hypothyroid Synthroid 50mcg daily HLD Crestor 10mg daily Asthma Singular 10mg daily Advair Diskus 500-50mcg/dose 1 puff daily Ventolin HFA 108 (90 base) mcg/act 2 puffs Q4H PRN Polyarthritis Celebrex 100mg daily Prophylactic Care Heparin Drip discontinued. Started on Lovenox 40mg SC daily Pepcid 20mg daily Tylenol 650mg Q6H for headaches DW Savi Zhu DO, PGY-1 <Bolivar Brennan - Last Filed: 03/23/17 16:01> Objective - Vital Signs/Intake and Output Vital Signs (last 24 hours): Temp Pulse Resp BP Pulse Ox 98 F 63 20 129/78 95 03/23/17 08:27 03/23/17 08:27 03/23/17 08:27 03/23/17 08:27 03/23/17 08:27 Intake and Output: 03/23/17 03/23/17 06:59 18:59 Intake Total 700 Balance 700 - Medications Medications: Current Medications Acetaminophen (Tylenol 325mg Tab) 650 mg PO Q6H PRN PRN Reason: Pain, Mild (1-3) Albuterol (Ventolin Hfa 90 Mcg/Actuation (8 G)) 2 puff IH RQ4 PRN PRN Reason: Shortness of Breath Last Admin: 03/23/17 09:01 Dose: 2 puff Enoxaparin Sodium (Lovenox) 40 mg SC DAILY [facility] 234 BEDS AT [facility] Last Admin: 03/23/17 09:32 Dose: 40 mg Guaifenesin/Dextromethorphan (Robitussin Dm) 10 ml PO Q4H PRN PRN Reason: Cough and congestion Last Admin: 03/22/17 21:30 Dose: 10 ml Hydrochlorothiazide (Hydrodiuril) 25 mg PO DAILY [facility] 234 BEDS [facility] Last Admin: 03/23/17 09:33 Dose: 25 mg Vancomycin/Sodium Chloride (Vancocin) 1 gm in 200 mls @ 133.333 mls/hr IVPB Q12H [facility]CLUDE 234 BEDS AT [facility] Stop: 03/26/17 20:01 Last Admin: 03/23/17 00:53 Dose: 133.333 mls/hr Levothyroxine Sodium (Synthroid) 50 mcg PO DAILY@0630 [facility] 234 BEDS AT [facility] Last Admin: 03/23/17 05:37 Dose: 50 mcg Lisinopril (Zestril) 10 mg PO DAILY [facility] 234 BEDS [facility] Last Admin: 03/23/17 09:33 Dose: 10 mg Montelukast Sodium (Singulair) 10 mg PO HS [facility] 234 BEDS [facility] Last Admin: 03/22/17 21:30 Dose: 10 mg Morphine Sulfate (Morphine) 1 mg IVP Q4 PRN PRN Reason: Pain, severe (8-10) Last Admin: 03/23/17 12:35 Dose: 1 mg Pantoprazole Sodium (Protonix Ec Tab) 40 mg PO DAILY [facility] 234 BEDS [facility] Last Admin: 03/23/17 09:33 Dose: 40 mg Rosuvastatin Calcium (Crestor) 5 mg PO HS [facility] 234 BEDS AT [facility] Last Admin: 03/22/17 21:30 Dose: 5 mg Fluticasone/Salmeterol (Advair Diskus 500/50) 1 puff INH RQ12 [facility] 234 BEDS [facility] Last Admin: 03/23/17 08:54 Dose: 1 puff - Labs Labs: 03/23/17 07:38 03/23/17 07:38 PT 12.4 SECONDS (9.7-12.2) H 03/19/17 19:53 INR 1.1 03/19/17 19:53 APTT 51 SECONDS (21-34) H D 03/21/17 17:17 Attending/Attestation - Attestation I have personally seen and examined this patient.: Yes I have fully participated in the care of the patient.: Yes I have reviewed all pertinent clinical information, including history, physical exam and plan: Yes Notes (Text): 03/23/17 16:00 Patient was seen and examined at bedside Patient states that she is feeling better and the right foot and toe pain has improved She is to receive IV antibiotics for 6 weeks for osteomyelitis PICC line is in place. Discussed the plan of care with the resident and I agree with the assessment and plan documented above.
[2017-03-23] MEDS: Vancomycin 1 gm/NS 200 ml 1 GM/200 ML BAG IVPB SCH ×2 (00:53→19:10)
[2017-03-23] MEDS: Levothyroxine 50 MCG TAB PO SCH (05:37)
[2017-03-23 07:50] LABS: BASO # 0.1 K/uL (0.0-0.2); BASO % 0.7 % (0.0-2.0); EOS # 0.3 K/uL (0.0-0.7); HEMATOCRIT 39.3 % (34.0-47.0); LYMPH # 3.2 K/uL (1.0-4.3); LYMPH % 37.9 % (20.0-40.0); MEAN CORPUSCULAR HEMOGLOBIN 28.8 pg (27.0-31.0); MEAN CORPUSCULAR HGB CONC 33.1 g/dL (33.0-37.0); MEAN PLATELET VOLUME 9.8 fL (7.2-11.7); MONO # 0.7 K/uL (0.0-0.8); MONO % 8.5 % (0.0-10.0); RED CELL DISTRIBUTION WIDTH 13.5 % (11.5-14.5); WHITE BLOOD COUNT 8.5 K/uL (4.8-10.8)
[2017-03-23 08:13] LABS: CHLORIDE 101 mmol/L (98-107)
[2017-03-23 08:14] LABS: SODIUM 136 mmol/L (132-148)
[2017-03-23 08:17] LABS: ALB/GLOB RATIO 1.2 (1.0-2.1); ALKALINE PHOSPHATASE 53 U/L (38-126); ALT/SGPT 31 U/L (9-52); AST/SGOT 44 U/L (14-36); BILIRUBIN,TOTAL 0.7 mg/dL (0.2-1.3); BLOOD UREA NITROGEN 13 mg/dL (7-17); CARBON DIOXIDE 25 mmol/L (22-30); GFR AFRICAN-AMERICAN > 60; GLUCOSE,RANDOM 86 mg/dL (65-105); TOTAL PROTEIN 6.7 g/dL (6.3-8.3)
[2017-03-23 08:18] LABS: CALCIUM 9.1 mg/dl (8.6-10.4)
[2017-03-23] MEDS: Fluticasone-Salmeterol 500-50mcg Diskus INH SCH (08:54)
[2017-03-23] MEDS: Albuterol HFA 90 mcg/actuation (8 g) IH PRN (09:01)
[2017-03-23] MEDS: Enoxaparin 40 mg Syringe SC SCH (09:32)
[2017-03-23] MEDS: Pantoprazole 40 mg EC Tab PO SCH (09:33)
--- NOTE | 2017-03-23 13:58 | CP.PCM.PN ---
Subjective - Date & Time of Evaluation Date of Evaluation: 03/23/17 Time of Evaluation: 11:10 - Subjective Subjective: 71 year old female was seen resting comfortably in bed this morning regarding right second digit pain. Patient reports pain to the forefoot has decreased overall and the focal point remains her 2nd toe, though pain is marginally less than yesterday. Pain medications are controlling the pain well. She states that she has been able to get up and walk on the foot to the bathroom with some difficulty due to the pain. Denies any acute overngiht events including fever, chills, headache, chest pain, SOB, abdominal pain, nausea, vomiting, of chills. Pt remains in good spirits. Objective - Vital Signs/Intake and Output Vital Signs (last 24 hours): Temp Pulse Resp BP Pulse Ox 98 F 63 20 129/78 95 03/23/17 08:27 03/23/17 08:27 03/23/17 08:27 03/23/17 08:27 03/23/17 08:27 - Medications Medications: Current Medications Acetaminophen (Tylenol 325mg Tab) 650 mg PO Q6H PRN PRN Reason: Pain, Mild (1-3) Albuterol (Ventolin Hfa 90 Mcg/Actuation (8 G)) 2 puff IH RQ4 PRN PRN Reason: Shortness of Breath Last Admin: 03/23/17 09:01 Dose: 2 puff Enoxaparin Sodium (Lovenox) 40 mg SC DAILY [facility] Last Admin: 03/23/17 09:32 Dose: 40 mg Guaifenesin/Dextromethorphan (Robitussin Dm) 10 ml PO Q4H PRN PRN Reason: Cough and congestion Last Admin: 03/22/17 21:30 Dose: 10 ml Hydrochlorothiazide (Hydrodiuril) 25 mg PO DAILY [facility] Last Admin: 03/23/17 09:33 Dose: 25 mg Vancomycin/Sodium Chloride (Vancocin) 1 gm in 200 mls @ 133.333 mls/hr IVPB Q12H [facility] Stop: 03/26/17 20:01 Last Admin: 03/23/17 00:53 Dose: 133.333 mls/hr Levothyroxine Sodium (Synthroid) 50 mcg PO DAILY@0630 [facility] Last Admin: 03/23/17 05:37 Dose: 50 mcg Lisinopril (Zestril) 10 mg PO DAILY [facility] Last Admin: 03/23/17 09:33 Dose: 10 mg Montelukast Sodium (Singulair) 10 mg PO [facility] Last Admin: 03/22/17 21:30 Dose: 10 mg Morphine Sulfate (Morphine) 1 mg IVP Q4 PRN PRN Reason: Pain, severe (8-10) Last Admin: 03/23/17 12:35 Dose: 1 mg Pantoprazole Sodium (Protonix Ec Tab) 40 mg PO DAILY [facility] Last Admin: 03/23/17 09:33 Dose: 40 mg Rosuvastatin Calcium (Crestor) 5 mg PO HS [facility] Last Admin: 03/22/17 21:30 Dose: 5 mg Fluticasone/Salmeterol (Advair Diskus 500/50) 1 puff INH RQ12 [facility] Last Admin: 03/23/17 08:54 Dose: 1 puff - Labs Labs: 03/23/17 07:38 03/23/17 07:38 PT 12.4 SECONDS (9.7-12.2) H 03/19/17 19:53 INR 1.1 03/19/17 19:53 APTT 51 SECONDS (21-34) H D 03/21/17 17:17 - Constitutional Appears: Well, Non-toxic, No Acute Distress - Extremities Exam Additional comments: Right lower extremity focused exam: Vasc: DP and PT pulses palpable. Skin temperature warm to cool from proximal to distal. Neuro: Gross sensation intact Ortho: Tenderness on palpation noted to the right 2nd digit Derm: Decreased edema noted to right 2nd digit. No open lesions, no drainage, no probe to bone noted. Right 2nd digit skin is slightly discolored dark. - Neurological Exam Neurological Exam: Alert, Awake, Oriented x3 - Psychiatric Exam Psychiatric exam: Normal Affect, Normal Mood Assessment and Plan - Assessment and Plan (Free Text) Assessment: 71 year old female 8 weeks status post right 2nd digit hammertoe correction Plan: Patient examined and evaluated. Chart, labs, vitals reviewed;afebrile, WBC 8.5. Discussed in detail with Dr. Grace No dressing or local wound care indicated. Continue pain control per primary Continue IV abx per primary Podiatry will continue to follow patient while in house
--- NOTE | 2017-03-23 15:06 | CP.PCM.PN ---
Subjective - Date & Time of Evaluation Date of Evaluation: 03/23/17 Time of Evaluation: 02:30 - Subjective Subjective: dictated Objective - Vital Signs/Intake and Output Vital Signs (last 24 hours): Temp Pulse Resp BP Pulse Ox 98 F 63 20 129/78 95 03/23/17 08:27 03/23/17 08:27 03/23/17 08:27 03/23/17 08:27 03/23/17 08:27 Intake and Output: 03/23/17 03/23/17 06:59 18:59 Intake Total 700 Balance 700 - Medications Medications: Current Medications Acetaminophen (Tylenol 325mg Tab) 650 mg PO Q6H PRN PRN Reason: Pain, Mild (1-3) Albuterol (Ventolin Hfa 90 Mcg/Actuation (8 G)) 2 puff IH RQ4 PRN PRN Reason: Shortness of Breath Last Admin: 03/23/17 09:01 Dose: 2 puff Enoxaparin Sodium (Lovenox) 40 mg SC DAILY [facility] Last Admin: 03/23/17 09:32 Dose: 40 mg Guaifenesin/Dextromethorphan (Robitussin Dm) 10 ml PO Q4H PRN PRN Reason: Cough and congestion Last Admin: 03/22/17 21:30 Dose: 10 ml Hydrochlorothiazide (Hydrodiuril) 25 mg PO DAILY [facility] Last Admin: 03/23/17 09:33 Dose: 25 mg Vancomycin/Sodium Chloride (Vancocin) 1 gm in 200 mls @ 133.333 mls/hr IVPB Q12H [facility] Stop: 03/26/17 20:01 Last Admin: 03/23/17 00:53 Dose: 133.333 mls/hr Levothyroxine Sodium (Synthroid) 50 mcg PO DAILY@0630 [facility] Last Admin: 03/23/17 05:37 Dose: 50 mcg Lisinopril (Zestril) 10 mg PO DAILY [facility] Last Admin: 03/23/17 09:33 Dose: 10 mg Montelukast Sodium (Singulair) 10 mg PO HS [facility] Last Admin: 03/22/17 21:30 Dose: 10 mg Morphine Sulfate (Morphine) 1 mg IVP Q4 PRN PRN Reason: Pain, severe (8-10) Last Admin: 03/23/17 12:35 Dose: 1 mg Pantoprazole Sodium (Protonix Ec Tab) 40 mg PO DAILY [facility] Last Admin: 03/23/17 09:33 Dose: 40 mg Rosuvastatin Calcium (Crestor) 5 mg PO HS [facility] Last Admin: 03/22/17 21:30 Dose: 5 mg Fluticasone/Salmeterol (Advair Diskus 500/50) 1 puff INH RQ12 [facility] Last Admin: 03/23/17 08:54 Dose: 1 puff - Labs Labs: 03/23/17 07:38 03/23/17 07:38 PT 12.4 SECONDS (9.7-12.2) H 03/19/17 19:53 INR 1.1 03/19/17 19:53 APTT 51 SECONDS (21-34) H D 03/21/17 17:17
[2017-03-23] MEDS: guaiFENesin DM 200 mg-20 mg/10 ml UD PO PRN (23:03)
--- NOTE | 2017-03-24 01:17 | CP.PCM.PN ---
<Hollie Hou - Last Filed: 03/24/17 01:16> Subjective - Date & Time of Evaluation Date of Evaluation: 03/24/17 Time of Evaluation: 01:00 - Subjective Subjective: Medicine Note for Dr. Brennan Patient was seen and examined at bedside. Patient is resting. No acute complaints, pain is well controlled. Denied fever, chills, headache, chest pain , abdominal pain, n/v/d/c, or urinary symptoms. Objective - Vital Signs/Intake and Output Vital Signs (last 24 hours): Temp Pulse Resp BP Pulse Ox 98.2 F 59 L 20 131/64 97 03/24/17 00:39 03/24/17 00:39 03/24/17 00:39 03/24/17 00:39 03/24/17 00:39 Intake and Output: 03/23/17 03/24/17 18:59 06:59 Intake Total 700 700 Balance 700 700 - Medications Medications: Current Medications Acetaminophen (Tylenol 325mg Tab) 650 mg PO Q6H PRN PRN Reason: Pain, Mild (1-3) Albuterol (Ventolin Hfa 90 Mcg/Actuation (8 G)) 2 puff IH RQ4 PRN PRN Reason: Shortness of Breath Last Admin: 03/23/17 09:01 Dose: 2 puff Enoxaparin Sodium (Lovenox) 40 mg SC DAILY [facility] Last Admin: 03/23/17 09:32 Dose: 40 mg Guaifenesin/Dextromethorphan (Robitussin Dm) 10 ml PO Q4H PRN PRN Reason: Cough and congestion Last Admin: 03/23/17 23:03 Dose: 10 ml Hydrochlorothiazide (Hydrodiuril) 25 mg PO DAILY [facility] Last Admin: 03/23/17 09:33 Dose: 25 mg Vancomycin/Sodium Chloride (Vancocin) 1 gm in 200 mls @ 133.333 mls/hr IVPB Q12H [facility] Stop: 03/26/17 20:01 Last Admin: 03/23/17 19:10 Dose: 133.333 mls/hr Levothyroxine Sodium (Synthroid) 50 mcg PO DAILY@0630 [facility] Last Admin: 03/23/17 05:37 Dose: 50 mcg Lisinopril (Zestril) 10 mg PO DAILY [facility] Last Admin: 03/23/17 09:33 Dose: 10 mg Montelukast Sodium (Singulair) 10 mg PO HS [facility] Last Admin: 03/23/17 21:11 Dose: 10 mg Morphine Sulfate (Morphine) 1 mg IVP Q4 PRN PRN Reason: Pain, severe (8-10) Last Admin: 03/23/17 12:35 Dose: 1 mg Pantoprazole Sodium (Protonix Ec Tab) 40 mg PO DAILY [facility] Last Admin: 03/23/17 09:33 Dose: 40 mg Rosuvastatin Calcium (Crestor) 5 mg PO HS [facility] Last Admin: 03/23/17 21:11 Dose: 5 mg Fluticasone/Salmeterol (Advair Diskus 500/50) 1 puff INH RQ12 [facility] Last Admin: 03/23/17 08:54 Dose: 1 puff - Labs Labs: 03/23/17 07:38 03/23/17 07:38 PT 12.4 SECONDS (9.7-12.2) H 03/19/17 19:53 INR 1.1 03/19/17 19:53 APTT 51 SECONDS (21-34) H D 03/21/17 17:17 - Constitutional Appears: No Acute Distress - Head Exam Head Exam: NORMAL INSPECTION, NORMOCEPHALIC - Eye Exam Eye Exam: EOMI, Normal appearance, PERRL Pupil Exam: NORMAL ACCOMODATION - ENT Exam ENT Exam: Mucous Membranes Moist - Respiratory Exam Respiratory Exam: Clear to Ausculation Bilateral, NORMAL BREATHING PATTERN. absent: Wheezes - Cardiovascular Exam Cardiovascular Exam: REGULAR RHYTHM, RRR, +S1, +S2 - GI/Abdominal Exam GI & Abdominal Exam: Soft, Normal Bowel Sounds. absent: Distended, Tenderness - Extremities Exam Extremities Exam: Normal Inspection. absent: Pedal Edema, Tenderness - Neurological Exam Neurological Exam: Alert, Awake, Oriented x3 - Psychiatric Exam Psychiatric exam: Normal Affect, Normal Mood - Skin Skin Exam: Dry, Intact, Normal Color, Warm Assessment and Plan - Assessment and Plan (Free Text) Plan: Right foot pain s/p 2nd digit arthroplasty with K wire fixation 01/21/2017 Consulted Vascular Surgery - Dr. Lay - acute vascular compromise to extremities unlikely CTA 03/19 - unremarkable, no evidence of peripheral disease. Consulted Podiatry - Dr. Grace - help appreciated Consulted ID - Dr. Rostogi - help appreciated Heparin Drip was started 03/19/17 Vanco 1g IV Q12H Morphine 1mg IVP Q4H PRN PICC line placed 03/23/17 HTN Lisinopril 10mg daily, HCTZ 25mg PO daily A1c 5.8 TSH 1.86 lipid panel -WNL Hypothyroid Synthroid 50mcg daily HLD Crestor 10mg daily Asthma Singular 10mg daily Advair Diskus 500-50mcg/dose 1 puff daily Ventolin HFA 108 (90 base) mcg/act 2 puffs Q4H PRN Polyarthritis Celebrex 100mg daily Prophylactic Care Heparin Drip discontinued. Started on Lovenox 40mg SC daily Pepcid 20mg daily Tylenol 650mg Q6H for headaches Disposition: Awaiting placement, either needs to be changed to IV abx once daily , or will need to stay in hospital for total of 6 weeks for IV abx. DW Savi Zhu DO, PGY-1 <Bolivar Brennan - Last Filed: 03/24/17 15:21> Objective - Vital Signs/Intake and Output Vital Signs (last 24 hours): Temp Pulse Resp BP Pulse Ox 98.0 F 69 20 100/64 98 03/24/17 08:00 03/24/17 08:00 03/24/17 08:00 03/24/17 08:00 03/24/17 08:00 Intake and Output: 03/24/17 03/24/17 06:59 18:59 Intake Total 820 Balance 820 - Medications Medications: Current Medications Acetaminophen (Tylenol 325mg Tab) 650 mg PO Q6H PRN PRN Reason: Pain, Mild (1-3) Albuterol (Ventolin Hfa 90 Mcg/Actuation (8 G)) 2 puff IH RQ4 PRN PRN Reason: Shortness of Breath Last Admin: 03/24/17 08:05 Dose: 1 puff Diphenhydramine HCl (Benadryl) 25 mg PO Q12 PRN PRN Reason: Itching / Pruritus Last Admin: 03/24/17 12:28 Dose: 25 mg Enoxaparin Sodium (Lovenox) 40 mg SC DAILY [facility] Last Admin: 03/24/17 10:29 Dose: 40 mg Guaifenesin/Dextromethorphan (Robitussin Dm) 10 ml PO Q4H PRN PRN Reason: Cough and congestion Last Admin: 03/23/17 23:03 Dose: 10 ml Hydrochlorothiazide (Hydrodiuril) 25 mg PO DAILY [facility] Last Admin: 03/24/17 10:28 Dose: 25 mg Vancomycin/Sodium Chloride (Vancocin) 1 gm in 200 mls @ 133.333 mls/hr IVPB Q12H [facility] Stop: 03/26/17 20:01 Last Admin: 03/24/17 08:38 Dose: 133.333 mls/hr Levothyroxine Sodium (Synthroid) 50 mcg PO DAILY@0630 [facility] Last Admin: 03/24/17 05:55 Dose: 50 mcg Lisinopril (Zestril) 10 mg PO DAILY [facility] Last Admin: 03/24/17 10:28 Dose: 10 mg Montelukast Sodium (Singulair) 10 mg PO HS [facility] Last Admin: 03/23/17 21:11 Dose: 10 mg Morphine Sulfate (Morphine) 1 mg IVP Q4 PRN PRN Reason: Pain, severe (8-10) Last Admin: 03/23/17 12:35 Dose: 1 mg Multivitamins (Hexavitamin) 1 tab PO DAILY [facility] Last Admin: 03/24/17 12:28 Dose: 1 tab Pantoprazole Sodium (Protonix Ec Tab) 40 mg PO DAILY [facility] Last Admin: 03/24/17 10:28 Dose: 40 mg Rosuvastatin Calcium (Crestor) 5 mg PO HS [facility] Last Admin: 03/23/17 21:11 Dose: 5 mg Fluticasone/Salmeterol (Advair Diskus 500/50) 1 puff INH RQ12 [facility] Last Admin: 03/24/17 08:05 Dose: 1 puff - Labs Labs: 03/24/17 08:32 03/24/17 08:32 PT 12.4 SECONDS (9.7-12.2) H 03/19/17 19:53 INR 1.1 03/19/17 19:53 APTT 51 SECONDS (21-34) H D 03/21/17 17:17 Attending/Attestation - Attestation I have personally seen and examined this patient.: Yes I have fully participated in the care of the patient.: Yes I have reviewed all pertinent clinical information, including history, physical exam and plan: Yes Notes (Text): 03/24/17 15:20 Patient was seen and examined at bedside with the resident Patient states that the right foot and second toe pain has improved We will continue IV antibiotics for osteoarthritis. Patient is currently on vancomycin PICC line is in place Management of antibiotics as per ID recommendations. No plan for surgical intervention at this time Discussed the plan of care with the resident and agree with the assessment and plan documented.
--- NOTE | 2017-03-24 02:00 | PN ---
INFECTIOUS DISEASE FOLLOWUP SUBJECTIVE: The patient was kind of rude. She wanted me to pharmacy picking tech . She wanted so much attention, but her foot is feeling little better. She has less pain. MRI from 03/08 was noted. She has osteomyelitis and is on vancomycin, a trough noted, 15 is a good number to keep. She needs q. 12 for now, and she said she is on junior care, hence unable to discharge the patient. PHYSICAL EXAMINATION VITAL SIGNS: T-max is 98, pulse 86, blood pressure 128/86, respirations are 18. HEENT: Head is atraumatic and normocephalic. NECK: Supple. LUNGS: Clear. HEART: S1 and S2 is regular. ABDOMEN: Soft and nontender. No guarding. No rigidity present. EXTREMITIES: Right foot had a dressing. LABORATORY DATA: White count is 8.5, her BUN is 13, creatinine is 0.8, so we will continue with vancomycin as ordered for now. Toxicology: Vancomycin drop is 15, so we will continue same medication. At this time, the patient has osteomyelitis of the second toe, status post surgery. I will continue vancomycin, and we will need at least 6 weeks of treatment, and if she has any hardware, it may be difficult to improve. Will follow with the back tender cloth printing at this time. James Cartwright MD [facility]
[2017-03-24] MEDS: Levothyroxine 50 MCG TAB PO SCH (05:55)
[2017-03-24] MEDS: Fluticasone-Salmeterol 500-50mcg Diskus INH SCH ×2 (08:05→19:20)
[2017-03-24] MEDS: Albuterol HFA 90 mcg/actuation (8 g) IH PRN ×2 (08:05→19:20)
[2017-03-24] MEDS: Vancomycin 1 gm/NS 200 ml 1 GM/200 ML BAG IVPB SCH ×2 (08:38→19:55)
[2017-03-24 08:57] LABS: BASO % 0.5 % (0.0-2.0); EOS # 0.3 K/uL (0.0-0.7); EOS % 3.8 % (0.0-4.0); HEMATOCRIT 38.3 % (34.0-47.0); LYMPH # 3.1 K/uL (1.0-4.3); LYMPH % 34.4 % (20.0-40.0); MEAN CELL VOLUME 87.7 fL (81.0-99.0); MEAN CORPUSCULAR HEMOGLOBIN 28.7 pg (27.0-31.0); MEAN CORPUSCULAR HGB CONC 32.8 g/dL (33.0-37.0); MEAN PLATELET VOLUME 9.6 fL (7.2-11.7); MONO # 0.8 K/uL (0.0-0.8); MONO % 9.1 % (0.0-10.0); RED CELL DISTRIBUTION WIDTH 13.7 % (11.5-14.5); WHITE BLOOD COUNT 8.9 K/uL (4.8-10.8)
[2017-03-24 09:37] LABS: ALB/GLOB RATIO 1.3 (1.0-2.1); ALKALINE PHOSPHATASE 49 U/L (38-126); ALT/SGPT 32 U/L (9-52); AST/SGOT 34 U/L (14-36); BILIRUBIN,TOTAL 0.5 mg/dL (0.2-1.3); BLOOD UREA NITROGEN 17 mg/dL (7-17); CALCIUM 9.1 mg/dl (8.6-10.4); CARBON DIOXIDE 25 mmol/L (22-30); CHLORIDE 101 mmol/L (98-107); GFR AFRICAN-AMERICAN > 60; GLUCOSE,RANDOM 78 mg/dL (65-105); POTASSIUM 3.6 mmol/L (3.6-5.2); SODIUM 139 mmol/L (132-148); TOTAL PROTEIN 6.3 g/dL (6.3-8.3)
--- NOTE | 2017-03-24 10:00 | CP.PCM.PN ---
Subjective - Date & Time of Evaluation Date of Evaluation: 03/24/17 Time of Evaluation: 11:00 - Subjective Subjective: 71 year old female was seen resting comfortably in bed this morning regarding right second digit pain. Pain medications are controlling the pain well. Denies any acute overngiht events including fever, chills, headache, chest pain, SOB, abdominal pain, nausea, vomiting, of chills. Pt remains in good spirits. Objective - Vital Signs/Intake and Output Vital Signs (last 24 hours): Temp Pulse Resp BP Pulse Ox 98.0 F 69 20 100/64 98 03/24/17 08:00 03/24/17 08:00 03/24/17 08:00 03/24/17 08:00 03/24/17 08:00 Intake and Output: 03/24/17 03/24/17 06:59 18:59 Intake Total 820 Balance 820 - Medications Medications: Current Medications Acetaminophen (Tylenol 325mg Tab) 650 mg PO Q6H PRN PRN Reason: Pain, Mild (1-3) Albuterol (Ventolin Hfa 90 Mcg/Actuation (8 G)) 2 puff IH RQ4 PRN PRN Reason: Shortness of Breath Last Admin: 03/23/17 09:01 Dose: 2 puff Enoxaparin Sodium (Lovenox) 40 mg SC DAILY [facility] Last Admin: 03/23/17 09:32 Dose: 40 mg Guaifenesin/Dextromethorphan (Robitussin Dm) 10 ml PO Q4H PRN PRN Reason: Cough and congestion Last Admin: 03/23/17 23:03 Dose: 10 ml Hydrochlorothiazide (Hydrodiuril) 25 mg PO DAILY [facility] Last Admin: 03/23/17 09:33 Dose: 25 mg Vancomycin/Sodium Chloride (Vancocin) 1 gm in 200 mls @ 133.333 mls/hr IVPB Q12H [facility] Stop: 03/26/17 20:01 Last Admin: 03/24/17 08:38 Dose: 133.333 mls/hr Levothyroxine Sodium (Synthroid) 50 mcg PO DAILY@0630 [facility] Last Admin: 03/24/17 05:55 Dose: 50 mcg Lisinopril (Zestril) 10 mg PO DAILY [facility] Last Admin: 03/23/17 09:33 Dose: 10 mg Montelukast Sodium (Singulair) 10 mg PO HS [facility] Last Admin: 03/23/17 21:11 Dose: 10 mg Morphine Sulfate (Morphine) 1 mg IVP Q4 PRN PRN Reason: Pain, severe (8-10) Last Admin: 03/23/17 12:35 Dose: 1 mg Pantoprazole Sodium (Protonix Ec Tab) 40 mg PO DAILY [facility] Last Admin: 03/23/17 09:33 Dose: 40 mg Rosuvastatin Calcium (Crestor) 5 mg PO HS [facility] Last Admin: 03/23/17 21:11 Dose: 5 mg Fluticasone/Salmeterol (Advair Diskus 500/50) 1 puff INH RQ12 [facility] Last Admin: 03/23/17 08:54 Dose: 1 puff - Labs Labs: 03/24/17 08:32 03/24/17 08:32 PT 12.4 SECONDS (9.7-12.2) H 03/19/17 19:53 INR 1.1 03/19/17 19:53 APTT 51 SECONDS (21-34) H D 03/21/17 17:17 - Constitutional Appears: Well, Non-toxic, No Acute Distress - Extremities Exam Additional comments: Right lower extremity focused exam: Vasc: DP and PT pulses palpable. Skin temperature warm to cool from proximal to distal. Neuro: Gross sensation intact Ortho: Tenderness on palpation noted to the right 2nd digit Derm: Decreased edema noted to right 2nd digit. No open lesions, no drainage, no probe to bone noted. Right 2nd digit skin is slightly discolored dark. - Neurological Exam Neurological Exam: Alert, Awake, Oriented x3 Assessment and Plan - Assessment and Plan (Free Text) Assessment: 71 year old female 8 weeks status post right 2nd digit hammertoe correction Plan: Patient examined and evaluated. Chart, labs, vitals reviewed;afebrile, absent leukocytosis. . Discussed in detail with Dr. Grace No dressing or local wound care indicated. Continue pain control per primary Continue IV abx per primary. Awaiting finalized placement for administration of recommended 6 weeks total of IV abx Podiatry will continue to follow patient while in house.
[2017-03-24] MEDS: Pantoprazole 40 mg EC Tab PO SCH (10:28)
[2017-03-24] MEDS: Enoxaparin 40 mg Syringe SC SCH (10:29)
[2017-03-24] MEDS: Multiple Vitamins Tab PO SCH (12:28)
[2017-03-24] MEDS: guaiFENesin DM 200 mg-20 mg/10 ml UD PO PRN (21:29)
[2017-03-25] MEDS: Levothyroxine 50 MCG TAB PO SCH (06:22)
[2017-03-25] MEDS: Albuterol HFA 90 mcg/actuation (8 g) IH PRN ×3 (07:09→19:34)
[2017-03-25] MEDS: Fluticasone-Salmeterol 500-50mcg Diskus INH SCH ×2 (07:10→19:34)
[2017-03-25 07:27] LABS: BASO # 0.1 K/uL (0.0-0.2); BASO % 0.8 % (0.0-2.0); EOS # 0.3 K/uL (0.0-0.7); EOS % 3.1 % (0.0-4.0); HEMATOCRIT 37.7 % (34.0-47.0); LYMPH # 3.4 K/uL (1.0-4.3); LYMPH % 38.3 % (20.0-40.0); MEAN CELL VOLUME 87.8 fL (81.0-99.0); MEAN CORPUSCULAR HEMOGLOBIN 28.9 pg (27.0-31.0); MEAN CORPUSCULAR HGB CONC 32.9 g/dL (33.0-37.0); MEAN PLATELET VOLUME 9.6 fL (7.2-11.7); MONO # 0.9 K/uL (0.0-0.8); MONO % 9.6 % (0.0-10.0); RED CELL DISTRIBUTION WIDTH 13.4 % (11.5-14.5); WHITE BLOOD COUNT 8.9 K/uL (4.8-10.8)
[2017-03-25 07:41] LABS: CHLORIDE 100 mmol/L (98-107); SODIUM 136 mmol/L (132-148)
[2017-03-25 07:42] LABS: POTASSIUM 3.4 mmol/L (3.6-5.2)
[2017-03-25 07:44] LABS: ALB/GLOB RATIO 1.2 (1.0-2.1); ALKALINE PHOSPHATASE 51 U/L (38-126); ALT/SGPT 34 U/L (9-52); AST/SGOT 30 U/L (14-36); BILIRUBIN,TOTAL 0.6 mg/dL (0.2-1.3); BLOOD UREA NITROGEN 13 mg/dL (7-17); CALCIUM 8.9 mg/dl (8.6-10.4); CARBON DIOXIDE 27 mmol/L (22-30); GFR AFRICAN-AMERICAN > 60; GLUCOSE,RANDOM 88 mg/dL (65-105); TOTAL PROTEIN 6.5 g/dL (6.3-8.3)
--- NOTE | 2017-03-25 08:25 | CP.PCM.PN ---
Subjective - Date & Time of Evaluation Date of Evaluation: 03/25/17 Time of Evaluation: 08:25 - Subjective Subjective: 71 year old female was seen resting comfortably at bedside this morning with attending, Dr. Grace regarding right second digit pain. Patient NAD, AAOx3. Patient states that her toe is getting better and less swollen. She denies any n/v/f/c/sob/cp. Objective - Vital Signs/Intake and Output Vital Signs (last 24 hours): Temp Pulse Resp BP Pulse Ox 98.1 F 69 20 119/78 98 03/24/17 23:31 03/24/17 23:31 03/24/17 23:31 03/24/17 23:31 03/24/17 23:31 - Medications Medications: Current Medications Acetaminophen (Tylenol 325mg Tab) 650 mg PO Q6H PRN PRN Reason: Pain, Mild (1-3) Albuterol (Ventolin Hfa 90 Mcg/Actuation (8 G)) 2 puff IH RQ4 PRN PRN Reason: Shortness of Breath Last Admin: 03/25/17 07:09 Dose: 2 puff Diphenhydramine HCl (Benadryl) 25 mg PO Q12 PRN PRN Reason: Itching / Pruritus Last Admin: 03/24/17 12:28 Dose: 25 mg Enoxaparin Sodium (Lovenox) 40 mg SC DAILY [facility] Last Admin: 03/24/17 10:29 Dose: 40 mg Guaifenesin/Dextromethorphan (Robitussin Dm) 10 ml PO Q4H PRN PRN Reason: Cough and congestion Last Admin: 03/24/17 21:29 Dose: 10 ml Hydrochlorothiazide (Hydrodiuril) 25 mg PO DAILY [facility] Last Admin: 03/24/17 10:28 Dose: 25 mg Vancomycin/Sodium Chloride (Vancocin) 1 gm in 200 mls @ 133.333 mls/hr IVPB Q12H [facility] Stop: 03/26/17 20:01 Last Admin: 03/24/17 19:55 Dose: 133.333 mls/hr Levothyroxine Sodium (Synthroid) 50 mcg PO DAILY@0630 [facility] Last Admin: 03/25/17 06:22 Dose: 50 mcg Lisinopril (Zestril) 10 mg PO DAILY [facility] Last Admin: 03/24/17 10:28 Dose: 10 mg Montelukast Sodium (Singulair) 10 mg PO HS [facility] Last Admin: 03/24/17 21:24 Dose: 10 mg Morphine Sulfate (Morphine) 1 mg IVP Q4 PRN PRN Reason: Pain, severe (8-10) Last Admin: 03/23/17 12:35 Dose: 1 mg Multivitamins (Hexavitamin) 1 tab PO DAILY [facility] Last Admin: 03/24/17 12:28 Dose: 1 tab Pantoprazole Sodium (Protonix Ec Tab) 40 mg PO DAILY [facility] Last Admin: 03/24/17 10:28 Dose: 40 mg Rosuvastatin Calcium (Crestor) 5 mg PO HS [facility] Last Admin: 03/24/17 21:24 Dose: 5 mg Fluticasone/Salmeterol (Advair Diskus 500/50) 1 puff INH RQ12 [facility] Last Admin: 03/25/17 07:10 Dose: 1 puff - Labs Labs: 03/25/17 07:07 03/25/17 07:07 PT 12.4 SECONDS (9.7-12.2) H 03/19/17 19:53 INR 1.1 03/19/17 19:53 APTT 51 SECONDS (21-34) H D 03/21/17 17:17 - Constitutional Appears: Well, Non-toxic, No Acute Distress - Extremities Exam Additional comments: Right lower extremity focused exam: Vasc: DP and PT pulses palpable. Skin temperature warm to cool from proximal to distal. Neuro: Gross sensation intact Ortho: Tenderness on palpation noted to the right 2nd digit Derm: Decreased edema noted to right 2nd digit. No open lesions, no drainage, no probe to bone noted. Right 2nd digit skin is slightly discolored dark, improving. - Neurological Exam Neurological Exam: Alert, Awake, Oriented x3 - Psychiatric Exam Psychiatric exam: Normal Affect, Normal Mood Assessment and Plan - Assessment and Plan (Free Text) Assessment: 71 year old female 8 weeks status post right 2nd digit hammertoe correction Plan: patient examined and evaluated discussed in detail with Dr. Grace chart, labs, vitals reviewed;afebrile, WBC 8.9 no dressing needed continue pain medication per primary continue IV abx per primary upon d/c patient to follow up in podiatry clinic podiatry will continue to follow patient while in house
[2017-03-25] MEDS: Vancomycin 1 gm/NS 200 ml 1 GM/200 ML BAG IVPB SCH ×2 (09:00→19:06)
[2017-03-25] MEDS: Enoxaparin 40 mg Syringe SC SCH (10:44)
[2017-03-25] MEDS: Multiple Vitamins Tab PO SCH (10:44)
[2017-03-25] MEDS: Pantoprazole 40 mg EC Tab PO SCH (10:44)
[2017-03-25] MEDS: guaiFENesin DM 200 mg-20 mg/10 ml UD PO PRN (10:53)
--- NOTE | 2017-03-25 15:55 | CP.PCM.PN ---
<Vijay Herrera - Last Filed: 03/25/17 15:49> Subjective - Date & Time of Evaluation Date of Evaluation: 03/25/17 Time of Evaluation: 07:40 - Subjective Subjective: PGY1 Medicine Note for Dr. Esquivel Patient seen and examined this morning at bedside. Patient states that she is still experiencing pain in her right foot in the 2nd toe. The pain is better than when she came into the hospital but it is still there. She has been able to get up and walk to the bathroom. The patient's biggest complaint is with the food. She states that she has not had much of an appetite. She had someone bring her some food from home but she was only to eat a little bit of it. Denies any f/c, n/v, d/c, sob, cp, lightheadedness, dizziness, numbness or tingling. Objective - Vital Signs/Intake and Output Vital Signs (last 24 hours): Temp Pulse Resp BP Pulse Ox 98 F 80 20 114/75 95 03/25/17 08:00 03/25/17 08:00 03/25/17 08:00 03/25/17 08:00 03/25/17 08:00 - Medications Medications: Current Medications Acetaminophen (Tylenol 325mg Tab) 650 mg PO Q6H PRN PRN Reason: Pain, Mild (1-3) Albuterol (Ventolin Hfa 90 Mcg/Actuation (8 G)) 2 puff IH RQ4 PRN PRN Reason: Shortness of Breath Last Admin: 03/25/17 11:12 Dose: 2 puff Diphenhydramine HCl (Benadryl) 25 mg PO Q12 PRN PRN Reason: Itching / Pruritus Last Admin: 03/25/17 11:39 Dose: 25 mg Enoxaparin Sodium (Lovenox) 40 mg SC DAILY [facility] Last Admin: 03/25/17 10:44 Dose: 40 mg Guaifenesin/Dextromethorphan (Robitussin Dm) 10 ml PO Q4H PRN PRN Reason: Cough and congestion Last Admin: 03/25/17 10:53 Dose: 10 ml Hydrochlorothiazide (Hydrodiuril) 25 mg PO DAILY [facility] Last Admin: 03/25/17 11:00 Dose: 25 mg Vancomycin/Sodium Chloride (Vancocin) 1 gm in 200 mls @ 133.333 mls/hr IVPB Q12H [facility] Stop: 03/26/17 20:01 Last Admin: 03/25/17 09:00 Dose: 133.333 mls/hr Levothyroxine Sodium (Synthroid) 50 mcg PO DAILY@0630 [facility] Last Admin: 03/25/17 06:22 Dose: 50 mcg Lisinopril (Zestril) 10 mg PO DAILY [facility] Last Admin: 03/25/17 10:44 Dose: 10 mg Montelukast Sodium (Singulair) 10 mg PO HS [facility] Last Admin: 03/24/17 21:24 Dose: 10 mg Morphine Sulfate (Morphine) 1 mg IVP Q4 PRN PRN Reason: Pain, severe (8-10) Last Admin: 03/25/17 14:21 Dose: 1 mg Multivitamins (Hexavitamin) 1 tab PO DAILY [facility] Last Admin: 03/25/17 10:44 Dose: 1 tab Pantoprazole Sodium (Protonix Ec Tab) 40 mg PO DAILY [facility] Last Admin: 03/25/17 10:44 Dose: 40 mg Rosuvastatin Calcium (Crestor) 5 mg PO HS [facility] Last Admin: 03/24/17 21:24 Dose: 5 mg Fluticasone/Salmeterol (Advair Diskus 500/50) 1 puff INH RQ12 [facility] Last Admin: 03/25/17 07:10 Dose: 1 puff - Labs Labs: 03/25/17 07:07 03/25/17 07:07 PT 12.4 SECONDS (9.7-12.2) H 03/19/17 19:53 INR 1.1 03/19/17 19:53 APTT 51 SECONDS (21-34) H D 03/21/17 17:17 - Constitutional Appears: Non-toxic, No Acute Distress - Head Exam Head Exam: ATRAUMATIC, NORMOCEPHALIC - Eye Exam Eye Exam: EOMI, Normal appearance - ENT Exam ENT Exam: Mucous Membranes Moist - Respiratory Exam Respiratory Exam: Clear to Ausculation Bilateral, NORMAL BREATHING PATTERN. absent: Accessory Muscle Use, Rales, Wheezes, Respiratory Distress - Cardiovascular Exam Cardiovascular Exam: REGULAR RHYTHM, +S1, +S2 - GI/Abdominal Exam GI & Abdominal Exam: Soft, Normal Bowel Sounds. absent: Distended, Guarding, Tenderness - Extremities Exam Extremities Exam: absent: Calf Tenderness, Pedal Edema Additional comments: 2nd and 3rd digits on the right foot are still slightly discolored compared to the rest of the foot. 2nd digit is tender to palpation, from tip to base of the toe. - Neurological Exam Neurological Exam: Alert, Awake, Oriented x3 - Psychiatric Exam Psychiatric exam: Normal Affect, Normal Mood - Skin Skin Exam: Dry, Normal Color (except 2nd and 3rd digits on right foot are slightly darkened. ), Warm Assessment and Plan - Assessment and Plan (Free Text) Plan: Right foot pain s/p 2nd digit arthroplasty with K wire fixation 01/21/2017 Consulted Vascular Surgery - Dr. Lay - acute vascular compromise to extremities unlikely CTA 03/19 - unremarkable, no evidence of peripheral disease. Consulted Podiatry - Dr. Grace - help appreciated Consulted ID - Dr. Alcala - help appreciated Heparin Drip was started 03/19/17 Vanco 1g IV Q12H - awaiting call back from Dr. Alcala. Morphine 1mg IVP Q4H PRN PICC line placed 03/23/17 HTN Lisinopril 10mg daily, HCTZ 25mg PO daily A1c 5.8 TSH 1.86 lipid panel -WNL Hypothyroid Synthroid 50mcg daily HLD Crestor 10mg daily Asthma Singular 10mg daily Advair Diskus 500-50mcg/dose 1 puff daily Ventolin HFA 108 (90 base) mcg/act 2 puffs Q4H PRN Polyarthritis Celebrex 100mg daily Prophylactic Care Heparin Drip discontinued. Started on Lovenox 40mg SC daily Pepcid 20mg daily Tylenol 650mg Q6H for headaches Awaiting placement, either needs to be changed to IV abx once daily, or will need to stay in hospital for total of 6 weeks for IV abx. Case discussed with Dr. Sierra Herrera PGY1 <Jv Esquivel - Last Filed: 03/25/17 16:20> Objective - Vital Signs/Intake and Output Vital Signs (last 24 hours): Temp Pulse Resp BP Pulse Ox 98.9 F 61 20 137/83 94 L 03/25/17 15:59 03/25/17 15:59 03/25/17 15:59 03/25/17 15:59 03/25/17 15:59 - Medications Medications: Current Medications Acetaminophen (Tylenol 325mg Tab) 650 mg PO Q6H PRN PRN Reason: Pain, Mild (1-3) Albuterol (Ventolin Hfa 90 Mcg/Actuation (8 G)) 2 puff IH RQ4 PRN PRN Reason: Shortness of Breath Last Admin: 03/25/17 11:12 Dose: 2 puff Diphenhydramine HCl (Benadryl) 25 mg PO Q12 PRN PRN Reason: Itching / Pruritus Last Admin: 03/25/17 11:39 Dose: 25 mg Enoxaparin Sodium (Lovenox) 40 mg SC DAILY [facility] Last Admin: 03/25/17 10:44 Dose: 40 mg Guaifenesin/Dextromethorphan (Robitussin Dm) 10 ml PO Q4H PRN PRN Reason: Cough and congestion Last Admin: 03/25/17 10:53 Dose: 10 ml Hydrochlorothiazide (Hydrodiuril) 25 mg PO DAILY [facility] Last Admin: 03/25/17 11:00 Dose: 25 mg Vancomycin/Sodium Chloride (Vancocin) 1 gm in 200 mls @ 133.333 mls/hr IVPB Q12H [facility] Stop: 03/26/17 20:01 Last Admin: 03/25/17 09:00 Dose: 133.333 mls/hr Levothyroxine Sodium (Synthroid) 50 mcg PO DAILY@0630 [facility] Last Admin: 03/25/17 06:22 Dose: 50 mcg Lisinopril (Zestril) 10 mg PO DAILY [facility] Last Admin: 03/25/17 10:44 Dose: 10 mg Montelukast Sodium (Singulair) 10 mg PO [facility] Last Admin: 03/24/17 21:24 Dose: 10 mg Morphine Sulfate (Morphine) 1 mg IVP Q4 PRN PRN Reason: Pain, severe (8-10) Last Admin: 03/25/17 14:21 Dose: 1 mg Multivitamins (Hexavitamin) 1 tab PO DAILY [facility] Last Admin: 03/25/17 10:44 Dose: 1 tab Pantoprazole Sodium (Protonix Ec Tab) 40 mg PO DAILY [facility] Last Admin: 03/25/17 10:44 Dose: 40 mg Rosuvastatin Calcium (Crestor) 5 mg PO [facility] Last Admin: 03/24/17 21:24 Dose: 5 mg Fluticasone/Salmeterol (Advair Diskus 500/50) 1 puff INH RQ12 [facility] Last Admin: 03/25/17 07:10 Dose: 1 puff - Labs Labs: 03/25/17 07:07 03/25/17 07:07 PT 12.4 SECONDS (9.7-12.2) H 03/19/17 19:53 INR 1.1 03/19/17 19:53 APTT 51 SECONDS (21-34) H D 03/21/17 17:17 Attending/Attestation - Attestation I have personally seen and examined this patient.: Yes I have fully participated in the care of the patient.: Yes I have reviewed all pertinent clinical information, including history, physical exam and plan: Yes Notes (Text): 03/25/17 16:18 Medical attending: Patient was seen and examined by me, agrees the above note by medical technologist prn. The patient is status post right lower extremity intervention she's also been evaluated by vascular surgery and at this moment does not need further intervention. She is getting IV antibiotics and from understand it may to 6 weeks worth of IV antibiotics. We will recheck out to infectious disease with regards to clarifications for the antibiotics Thank you very much, Jv Esquivel
--- NOTE | 2017-03-25 20:00 | CP.PCM.PN ---
Subjective - Date & Time of Evaluation Date of Evaluation: 03/25/17 Time of Evaluation: 03:00 - Subjective Subjective: dictated Objective - Vital Signs/Intake and Output Vital Signs (last 24 hours): Temp Pulse Resp BP Pulse Ox 98.9 F 61 20 137/83 94 L 03/25/17 15:59 03/25/17 15:59 03/25/17 15:59 03/25/17 15:59 03/25/17 15:59 - Medications Medications: Current Medications Acetaminophen (Tylenol 325mg Tab) 650 mg PO Q6H PRN PRN Reason: Pain, Mild (1-3) Albuterol (Ventolin Hfa 90 Mcg/Actuation (8 G)) 2 puff IH RQ4 PRN PRN Reason: Shortness of Breath Last Admin: 03/25/17 19:34 Dose: 2 puff Diphenhydramine HCl (Benadryl) 25 mg PO Q12 PRN PRN Reason: Itching / Pruritus Last Admin: 03/25/17 11:39 Dose: 25 mg Enoxaparin Sodium (Lovenox) 40 mg SC DAILY [facility] Last Admin: 03/25/17 10:44 Dose: 40 mg Guaifenesin/Dextromethorphan (Robitussin Dm) 10 ml PO Q4H PRN PRN Reason: Cough and congestion Last Admin: 03/25/17 10:53 Dose: 10 ml Hydrochlorothiazide (Hydrodiuril) 25 mg PO DAILY [facility] Last Admin: 03/25/17 11:00 Dose: 25 mg Vancomycin/Sodium Chloride (Vancocin) 1 gm in 200 mls @ 133.333 mls/hr IVPB Q12H [facility] Stop: 03/26/17 20:01 Last Admin: 03/25/17 19:06 Dose: 133.333 mls/hr Levothyroxine Sodium (Synthroid) 50 mcg PO DAILY@0630 [facility] Last Admin: 03/25/17 06:22 Dose: 50 mcg Lisinopril (Zestril) 10 mg PO DAILY [facility] Last Admin: 03/25/17 10:44 Dose: 10 mg Montelukast Sodium (Singulair) 10 mg PO HS [facility] Last Admin: 03/24/17 21:24 Dose: 10 mg Morphine Sulfate (Morphine) 1 mg IVP Q4 PRN PRN Reason: Pain, severe (8-10) Last Admin: 03/25/17 19:07 Dose: 1 mg Multivitamins (Hexavitamin) 1 tab PO DAILY [facility] Last Admin: 03/25/17 10:44 Dose: 1 tab Pantoprazole Sodium (Protonix Ec Tab) 40 mg PO DAILY [facility] Last Admin: 03/25/17 10:44 Dose: 40 mg Rosuvastatin Calcium (Crestor) 5 mg PO HS [facility] Last Admin: 03/24/17 21:24 Dose: 5 mg Fluticasone/Salmeterol (Advair Diskus 500/50) 1 puff INH RQ12 [facility] Last Admin: 03/25/17 19:34 Dose: 1 puff - Labs Labs: 03/25/17 07:07 03/25/17 07:07 PT 12.4 SECONDS (9.7-12.2) H 03/19/17 19:53 INR 1.1 03/19/17 19:53 APTT 51 SECONDS (21-34) H D 03/21/17 17:17
[2017-03-25] MEDS ORDERED: Potassium Chloride 20 mEq ER Tab PO STA (20:38)
[2017-03-26] MEDS: guaiFENesin DM 200 mg-20 mg/10 ml UD PO PRN (00:26)
[2017-03-26] MEDS: Levothyroxine 50 MCG TAB PO SCH (05:41)
[2017-03-26] MEDS: Fluticasone-Salmeterol 500-50mcg Diskus INH SCH ×2 (07:15→20:00)
[2017-03-26] MEDS: Albuterol HFA 90 mcg/actuation (8 g) IH PRN ×3 (07:15→19:59)
--- NOTE | 2017-03-26 07:15 | PN ---
HISTORY OF PRESENT ILLNESS: The patient continues to have tenderness in the second toe. She said she has [employer], she has no other insurance. Her foot remains slightly better, less swollen, but she is not able to ambulate. She has knee pains and she says it is difficult for her to come everyday, and she is on vancomycin twice a day, hence we will continue the same treatment for now. PHYSICAL EXAMINATION: VITAL SIGNS: Otherwise stable. LUNGS: Clear. HEART: S1, S2 is regular. ABDOMEN: Soft and nontender. No guarding, no rigidity present. EXTREMITIES: Second toe remains very tender, but it is slightly improving. PLAN: We will continue with vancomycin and discuss the plan with the resident. She has osteomyelitis post-surgery. She has no metal in there, and hopefully she will improve with IV antibiotics which will be needed to complete 42 days and to be following vancomycin peak and trough weekly, and CBC, CMP, ESR weekly. James Cartwright MD
--- NOTE | 2017-03-26 07:24 | CP.PCM.PN ---
Subjective - Date & Time of Evaluation Date of Evaluation: 03/26/17 Time of Evaluation: 07:21 - Subjective Subjective: PGY1 Medicine Note for Dr. Esquivel Patient seen and examined at bedside this morning. Currently she states that she is feeling fine and slept well. She states that her right 2nd toe still hurts at times but currently she has minimal pain. She still complains of the itchiness but says she received Benadryl this morning which has helped. Patient states that she was able to eat two things of oatmeal for breakfast this morning. Denies f/c, n/v, d/c, sob or cp. Objective - Vital Signs/Intake and Output Vital Signs (last 24 hours): Temp Pulse Resp BP Pulse Ox 98.3 F 62 20 120/72 97 03/25/17 23:43 03/25/17 23:43 03/25/17 23:43 03/25/17 23:43 03/25/17 23:43 Intake and Output: 03/26/17 03/26/17 06:59 18:59 Intake Total 300 Balance 300 - Medications Medications: Current Medications Acetaminophen (Tylenol 325mg Tab) 650 mg PO Q6H PRN PRN Reason: Pain, Mild (1-3) Albuterol (Ventolin Hfa 90 Mcg/Actuation (8 G)) 2 puff IH RQ4 PRN PRN Reason: Shortness of Breath Last Admin: 03/26/17 07:15 Dose: 2 puff Diphenhydramine HCl (Benadryl) 25 mg PO Q12 PRN PRN Reason: Itching / Pruritus Last Admin: 03/26/17 05:55 Dose: 25 mg Enoxaparin Sodium (Lovenox) 40 mg SC DAILY [facility] Last Admin: 03/25/17 10:44 Dose: 40 mg Guaifenesin/Dextromethorphan (Robitussin Dm) 10 ml PO Q4H PRN PRN Reason: Cough and congestion Last Admin: 03/26/17 00:26 Dose: 10 ml Hydrochlorothiazide (Hydrodiuril) 25 mg PO DAILY [facility] Last Admin: 03/25/17 11:00 Dose: 25 mg Vancomycin/Sodium Chloride (Vancocin) 1 gm in 200 mls @ 133.333 mls/hr IVPB Q12H [facility] Stop: 03/26/17 20:01 Last Admin: 03/25/17 19:06 Dose: 133.333 mls/hr Levothyroxine Sodium (Synthroid) 50 mcg PO DAILY@0630 [facility] Last Admin: 03/26/17 05:41 Dose: 50 mcg Lisinopril (Zestril) 10 mg PO DAILY [facility] Last Admin: 03/25/17 10:44 Dose: 10 mg Montelukast Sodium (Singulair) 10 mg PO HS [facility] Last Admin: 03/25/17 21:18 Dose: 10 mg Morphine Sulfate (Morphine) 1 mg IVP Q4 PRN PRN Reason: Pain, severe (8-10) Last Admin: 03/26/17 00:14 Dose: 1 mg Multivitamins (Hexavitamin) 1 tab PO DAILY [facility] Last Admin: 03/25/17 10:44 Dose: 1 tab Pantoprazole Sodium (Protonix Ec Tab) 40 mg PO DAILY [facility] Last Admin: 03/25/17 10:44 Dose: 40 mg Rosuvastatin Calcium (Crestor) 5 mg PO [facility] Last Admin: 03/25/17 21:18 Dose: 5 mg Fluticasone/Salmeterol (Advair Diskus 500/50) 1 puff INH RQ12 [facility] Last Admin: 03/26/17 07:15 Dose: 1 puff - Labs Labs: 03/25/17 07:07 03/25/17 07:07 PT 12.4 SECONDS (9.7-12.2) H 03/19/17 19:53 INR 1.1 03/19/17 19:53 APTT 51 SECONDS (21-34) H D 03/21/17 17:17 - Constitutional Appears: Non-toxic, No Acute Distress - Head Exam Head Exam: ATRAUMATIC, NORMOCEPHALIC - Eye Exam Eye Exam: EOMI, Normal appearance - ENT Exam ENT Exam: Mucous Membranes Moist - Respiratory Exam Respiratory Exam: Clear to Ausculation Bilateral, NORMAL BREATHING PATTERN. absent: Accessory Muscle Use, Rales, Wheezes, Respiratory Distress - Cardiovascular Exam Cardiovascular Exam: REGULAR RHYTHM, +S1, +S2 - GI/Abdominal Exam GI & Abdominal Exam: Soft, Normal Bowel Sounds. absent: Distended, Guarding, Tenderness - Extremities Exam Extremities Exam: Normal Inspection. absent: Calf Tenderness, Pedal Edema - Neurological Exam Neurological Exam: Alert, Awake, Oriented x3 - Psychiatric Exam Psychiatric exam: Normal Affect, Normal Mood - Skin Skin Exam: Dry, Normal Color, Warm Assessment and Plan - Assessment and Plan (Free Text) Plan: Right foot pain s/p 2nd digit arthroplasty with K wire fixation 01/21/2017 Consulted Vascular Surgery - Dr. Lay - acute vascular compromise to extremities unlikely CTA 03/19 - unremarkable, no evidence of peripheral disease. Consulted Podiatry - Dr. Grace - help appreciated Consulted ID - Dr. Alcala - help appreciated Heparin Drip was started 03/19/17 Vanco 1g IV Q12H - Spoke with Dr. Cartwright, will keep patient in hospital for another week on same regiment. Will re-eval next week for possible adjustment of abx to allow for out pt follow up. Morphine 1mg IVP Q4H PRN PICC line placed 03/23/17 HTN Lisinopril 10mg daily, HCTZ 25mg PO daily A1c 5.8 TSH 1.86 lipid panel -WNL Hypothyroid Synthroid 50mcg daily HLD Crestor 10mg daily Asthma Singular 10mg daily Advair Diskus 500-50mcg/dose 1 puff daily Ventolin HFA 108 (90 base) mcg/act 2 puffs Q4H PRN Polyarthritis Celebrex 100mg daily Prophylactic Care Heparin Drip discontinued. Started on Lovenox 40mg SC daily Pepcid 20mg daily Tylenol 650mg Q6H for headaches Case discussed with Dr. Sierra Linares Sharon PGY1
[2017-03-26 07:46] LABS: BASO # 0.1 K/uL (0.0-0.2); BASO % 0.9 % (0.0-2.0); EOS # 0.3 K/uL (0.0-0.7); EOS % 3.1 % (0.0-4.0); HEMATOCRIT 37.1 % (34.0-47.0); LYMPH # 2.9 K/uL (1.0-4.3); LYMPH % 33.9 % (20.0-40.0); MEAN CELL VOLUME 87.7 fL (81.0-99.0); MEAN CORPUSCULAR HGB CONC 33.1 g/dL (33.0-37.0); MEAN PLATELET VOLUME 9.4 fL (7.2-11.7); MONO # 0.9 K/uL (0.0-0.8); MONO % 10.6 % (0.0-10.0); RED CELL DISTRIBUTION WIDTH 13.6 % (11.5-14.5); WHITE BLOOD COUNT 8.6 K/uL (4.8-10.8)
[2017-03-26 07:47] LABS: CHLORIDE 102 mmol/L (98-107)
[2017-03-26 07:48] LABS: POTASSIUM 3.9 mmol/L (3.6-5.2); SODIUM 137 mmol/L (132-148)
[2017-03-26 07:50] LABS: ALB/GLOB RATIO 1.2 (1.0-2.1); ALKALINE PHOSPHATASE 50 U/L (38-126); ALT/SGPT 36 U/L (9-52); AST/SGOT 25 U/L (14-36); BILIRUBIN,TOTAL 0.6 mg/dL (0.2-1.3); BLOOD UREA NITROGEN 12 mg/dL (7-17); CARBON DIOXIDE 25 mmol/L (22-30); GFR AFRICAN-AMERICAN > 60; GLUCOSE,RANDOM 84 mg/dL (65-105); TOTAL PROTEIN 6.4 g/dL (6.3-8.3)
[2017-03-26 07:51] LABS: CALCIUM 8.9 mg/dl (8.6-10.4)
[2017-03-26] MEDS: Vancomycin 1 gm/NS 200 ml 1 GM/200 ML BAG IVPB SCH ×2 (08:29→20:32)
[2017-03-26] MEDS: Pantoprazole 40 mg EC Tab PO SCH (10:07)
[2017-03-26] MEDS: Multiple Vitamins Tab PO SCH (10:07)
[2017-03-26] MEDS: Enoxaparin 40 mg Syringe SC SCH (10:08)
--- NOTE | 2017-03-26 13:36 | CP.PCM.PN ---
Subjective - Date & Time of Evaluation Date of Evaluation: 03/26/17 Time of Evaluation: 13:31 - Subjective Subjective: 71 year old female was seen resting comfortably at bedside this morning regarding right second digit pain. Patient NAD, AAOx3. Patient states that her toe is getting better and less swollen than yesterday. She denies any n/v/f /c/sob/cp. Objective - Vital Signs/Intake and Output Vital Signs (last 24 hours): Temp Pulse Resp BP Pulse Ox 98 F 65 20 124/67 98 03/26/17 07:55 03/26/17 07:55 03/26/17 07:55 03/26/17 07:55 03/26/17 07:55 Intake and Output: 03/26/17 03/26/17 06:59 18:59 Intake Total 300 Balance 300 - Medications Medications: Current Medications Acetaminophen (Tylenol 325mg Tab) 650 mg PO Q6H PRN PRN Reason: Pain, Mild (1-3) Albuterol (Ventolin Hfa 90 Mcg/Actuation (8 G)) 2 puff IH RQ4 PRN PRN Reason: Shortness of Breath Last Admin: 03/26/17 11:16 Dose: 2 puff Diphenhydramine HCl (Benadryl) 25 mg PO Q12 PRN PRN Reason: Itching / Pruritus Last Admin: 03/26/17 05:55 Dose: 25 mg Enoxaparin Sodium (Lovenox) 40 mg SC DAILY [facility] Last Admin: 03/26/17 10:08 Dose: 40 mg Guaifenesin/Dextromethorphan (Robitussin Dm) 10 ml PO Q4H PRN PRN Reason: Cough and congestion Last Admin: 03/26/17 00:26 Dose: 10 ml Hydrochlorothiazide (Hydrodiuril) 25 mg PO DAILY [facility] Last Admin: 03/26/17 10:07 Dose: 25 mg Vancomycin/Sodium Chloride (Vancocin) 1 gm in 200 mls @ 133.333 mls/hr IVPB Q12H [facility] Stop: 03/26/17 20:01 Last Admin: 03/26/17 08:29 Dose: 133.333 mls/hr Levothyroxine Sodium (Synthroid) 50 mcg PO DAILY@0630 [facility] Last Admin: 03/26/17 05:41 Dose: 50 mcg Lisinopril (Zestril) 10 mg PO DAILY [facility] Last Admin: 03/26/17 10:08 Dose: 10 mg Montelukast Sodium (Singulair) 10 mg PO HS [facility] Last Admin: 03/25/17 21:18 Dose: 10 mg Morphine Sulfate (Morphine) 1 mg IVP Q4 PRN PRN Reason: Pain, severe (8-10) Last Admin: 03/26/17 10:09 Dose: 1 mg Multivitamins (Hexavitamin) 1 tab PO DAILY [facility] Last Admin: 03/26/17 10:07 Dose: 1 tab Pantoprazole Sodium (Protonix Ec Tab) 40 mg PO DAILY [facility] Last Admin: 03/26/17 10:07 Dose: 40 mg Rosuvastatin Calcium (Crestor) 5 mg PO [facility] Last Admin: 03/25/17 21:18 Dose: 5 mg Fluticasone/Salmeterol (Advair Diskus 500/50) 1 puff INH RQ12 [facility] Last Admin: 03/26/17 07:15 Dose: 1 puff - Labs Labs: 03/26/17 07:20 03/26/17 07:20 PT 12.4 SECONDS (9.7-12.2) H 03/19/17 19:53 INR 1.1 03/19/17 19:53 APTT 51 SECONDS (21-34) H D 03/21/17 17:17 - Constitutional Appears: Well, Non-toxic, No Acute Distress - Extremities Exam Additional comments: Right lower extremity focused exam: Vasc: DP and PT pulses palpable. Skin temperature warm to cool from proximal to distal. Neuro: Gross sensation intact Ortho: Tenderness on palpation noted to the right 2nd digit Derm: Decreased edema noted to right 2nd digit. No open lesions, no drainage, no probe to bone noted. Right 2nd digit skin is slightly discolored dark, improving. - Neurological Exam Neurological Exam: Alert, Awake, Oriented x3 - Psychiatric Exam Psychiatric exam: Normal Affect, Normal Mood Assessment and Plan - Assessment and Plan (Free Text) Assessment: 71 year old female 9 weeks status post right 2nd digit hammertoe correction Plan: patient examined and evaluated discussed in detail with Dr. Grace chart, labs, vitals reviewed no dressing needed continue pain medication per primary continue IV abx per primary upon d/c patient to follow up in podiatry clinic podiatry will continue to follow patient while in house
--- NOTE | 2017-03-27 06:27 | CP.PCM.PN ---
<Vijay Herrera - Last Filed: 03/27/17 11:53> Subjective - Date & Time of Evaluation Date of Evaluation: 03/27/17 Time of Evaluation: 06:25 - Subjective Subjective: PGY1 Medicine Note for Dr. Esquivel Patient seen and examined at bedside this morning. Currently she states that she is feeling better and slept well but still hasn't been eating much. She states the only reason she is not eating is because she does not like the food. She had 3 bowls of oatmeal yesterday without any problems. She says that shes been trying to get out of bed and walk around. She still complains of right toe pain and is also complaining of right knee pain. She says that she still feels itchy and is taking Benadryl for relief. Denies f/c, n/v, d/c, sob or cp. Objective - Vital Signs/Intake and Output Vital Signs (last 24 hours): Temp Pulse Resp BP Pulse Ox 98.5 F 83 20 103/63 96 03/26/17 23:40 03/26/17 23:40 03/26/17 23:40 03/26/17 23:40 03/26/17 23:40 Intake and Output: 03/26/17 03/27/17 18:59 06:59 Intake Total 780 600 Balance 780 600 - Medications Medications: Current Medications Acetaminophen (Tylenol 325mg Tab) 650 mg PO Q6H PRN PRN Reason: Pain, Mild (1-3) Albuterol (Ventolin Hfa 90 Mcg/Actuation (8 G)) 2 puff IH RQ4 PRN PRN Reason: Shortness of Breath Last Admin: 03/26/17 19:59 Dose: 2 puff Diphenhydramine HCl (Benadryl) 25 mg PO Q12 PRN PRN Reason: Itching / Pruritus Last Admin: 03/27/17 00:51 Dose: 25 mg Enoxaparin Sodium (Lovenox) 40 mg SC DAILY [facility] Last Admin: 03/26/17 10:08 Dose: 40 mg Guaifenesin/Dextromethorphan (Robitussin Dm) 10 ml PO Q4H PRN PRN Reason: Cough and congestion Last Admin: 03/26/17 00:26 Dose: 10 ml Hydrochlorothiazide (Hydrodiuril) 25 mg PO DAILY [facility] Last Admin: 03/26/17 10:07 Dose: 25 mg Levothyroxine Sodium (Synthroid) 50 mcg PO DAILY@0630 [facility] Last Admin: 03/26/17 05:41 Dose: 50 mcg Lisinopril (Zestril) 10 mg PO DAILY [facility] Last Admin: 03/26/17 10:08 Dose: 10 mg Montelukast Sodium (Singulair) 10 mg PO HS [facility] Last Admin: 03/26/17 21:21 Dose: 10 mg Morphine Sulfate (Morphine) 1 mg IVP Q4 PRN PRN Reason: Pain, severe (8-10) Last Admin: 03/27/17 00:50 Dose: 1 mg Multivitamins (Hexavitamin) 1 tab PO DAILY [facility] Last Admin: 03/26/17 10:07 Dose: 1 tab Pantoprazole Sodium (Protonix Ec Tab) 40 mg PO DAILY [facility] Last Admin: 03/26/17 10:07 Dose: 40 mg Rosuvastatin Calcium (Crestor) 5 mg PO [facility] Last Admin: 03/26/17 21:21 Dose: 5 mg Fluticasone/Salmeterol (Advair Diskus 500/50) 1 puff INH RQ12 [facility] Last Admin: 03/26/17 20:00 Dose: 1 puff - Labs Labs: 03/26/17 07:20 03/26/17 07:20 PT 12.4 SECONDS (9.7-12.2) H 03/19/17 19:53 INR 1.1 03/19/17 19:53 APTT 51 SECONDS (21-34) H D 03/21/17 17:17 - Constitutional Appears: Non-toxic, No Acute Distress - Head Exam Head Exam: ATRAUMATIC, NORMOCEPHALIC - Eye Exam Eye Exam: EOMI, Normal appearance - ENT Exam ENT Exam: Mucous Membranes Moist - Respiratory Exam Respiratory Exam: Clear to Ausculation Bilateral, NORMAL BREATHING PATTERN. absent: Accessory Muscle Use, Rales, Wheezes, Respiratory Distress - Cardiovascular Exam Cardiovascular Exam: REGULAR RHYTHM, +S1, +S2 - GI/Abdominal Exam GI & Abdominal Exam: Soft, Normal Bowel Sounds. absent: Distended, Firm, Rigid , Tenderness - Extremities Exam Extremities Exam: Normal Capillary Refill. absent: Calf Tenderness, Pedal Edema Additional comments: 2nd and 3rd digit on right foot slightly discolored, dusky compared to rest of foot. Improving from admission but stable over past couple of days. Tender to palpation of the 2nd digit only. - Neurological Exam Neurological Exam: Alert, Awake, Oriented x3 - Psychiatric Exam Psychiatric exam: Normal Affect, Normal Mood - Skin Skin Exam: Dry, Normal Color, Warm Assessment and Plan - Assessment and Plan (Free Text) Plan: Right foot pain s/p 2nd digit arthroplasty with K wire fixation 01/21/2017 Consulted Vascular Surgery - Dr. Lay - acute vascular compromise to extremities unlikely CTA 03/19 - unremarkable, no evidence of peripheral disease. Consulted Podiatry - Dr. Grace - help appreciated Consulted ID - Dr. Alcala - help appreciated Heparin Drip was started 03/19/17 Vanco 1g IV Q12H - Spoke with Dr. Cartwright, will keep patient in hospital until saturday04/01/17 on same regiment. Will re-eval next week for possible adjustment of abx to allow for out pt follow up. Morphine 1mg IVP Q4H PRN PICC line placed 03/23/17 HTN Lisinopril 10mg daily, HCTZ 25mg PO daily A1c 5.8 TSH 1.86 lipid panel -WNL Hypothyroid Synthroid 50mcg daily HLD Crestor 10mg daily Asthma Singular 10mg daily Advair Diskus 500-50mcg/dose 1 puff daily Ventolin HFA 108 (90 base) mcg/act 2 puffs Q4H PRN Polyarthritis Celebrex 100mg daily Prophylactic Care Heparin Drip discontinued. Started on Lovenox 40mg SC daily Pepcid 20mg daily Tylenol 650mg Q6H for headaches Patient staying in hospital for now to receive IV abx. Awaiting re-evaluation by ID to adjust abx regiment to allow for out pt treatment. Case discussed with Dr. Sierra Herrera PGY1 <Jv Esquivel - Last Filed: 03/27/17 15:05> Objective - Vital Signs/Intake and Output Vital Signs (last 24 hours): Temp Pulse Resp BP Pulse Ox 98.5 F 56 L 20 103/63 98 03/27/17 07:00 03/27/17 07:00 03/27/17 07:00 03/26/17 23:40 03/27/17 07:00 Intake and Output: 03/27/17 03/27/17 06:59 18:59 Intake Total 600 Balance 600 - Medications Medications: Current Medications Acetaminophen (Tylenol 325mg Tab) 650 mg PO Q6H PRN PRN Reason: Pain, Mild (1-3) Albuterol (Ventolin Hfa 90 Mcg/Actuation (8 G)) 2 puff IH RQ4 PRN PRN Reason: Shortness of Breath Last Admin: 03/27/17 11:41 Dose: 2 puff Diphenhydramine HCl (Benadryl) 25 mg PO Q12 PRN PRN Reason: Itching / Pruritus Last Admin: 03/27/17 00:51 Dose: 25 mg Enoxaparin Sodium (Lovenox) 40 mg SC DAILY [facility] Last Admin: 03/27/17 11:07 Dose: 40 mg Guaifenesin/Dextromethorphan (Robitussin Dm) 10 ml PO Q4H PRN PRN Reason: Cough and congestion Last Admin: 03/26/17 00:26 Dose: 10 ml Hydrochlorothiazide (Hydrodiuril) 25 mg PO DAILY [facility] Last Admin: 03/27/17 11:07 Dose: Not Given Vancomycin/Sodium Chloride (Vancocin) 1 gm in 200 mls @ 133.333 mls/hr IVPB Q12H [facility] Stop: 04/01/17 13:31 Last Admin: 03/27/17 14:07 Dose: 133.333 mls/hr Levothyroxine Sodium (Synthroid) 50 mcg PO DAILY@0630 [facility] Last Admin: 03/27/17 06:28 Dose: 50 mcg Lisinopril (Zestril) 10 mg PO DAILY [facility] Last Admin: 03/27/17 11:08 Dose: Not Given Montelukast Sodium (Singulair) 10 mg PO HS [facility] Last Admin: 03/26/17 21:21 Dose: 10 mg Morphine Sulfate (Morphine) 1 mg IVP Q4 PRN PRN Reason: Pain, severe (8-10) Last Admin: 03/27/17 13:11 Dose: 1 mg Multivitamins (Hexavitamin) 1 tab PO DAILY [facility] Last Admin: 03/27/17 11:06 Dose: 1 tab Pantoprazole Sodium (Protonix Ec Tab) 40 mg PO DAILY [facility] Last Admin: 03/27/17 11:06 Dose: 40 mg Rosuvastatin Calcium (Crestor) 5 mg PO HS [facility] Last Admin: 03/26/17 21:21 Dose: 5 mg Fluticasone/Salmeterol (Advair Diskus 500/50) 1 puff INH RQ12 [facility] Last Admin: 03/27/17 07:12 Dose: 1 puff - Labs Labs: 03/27/17 06:55 03/27/17 06:55 PT 12.4 SECONDS (9.7-12.2) H 03/19/17 19:53 INR 1.1 03/19/17 19:53 APTT 51 SECONDS (21-34) H D 03/21/17 17:17 Attending/Attestation - Attestation I have personally seen and examined this patient.: Yes I have fully participated in the care of the patient.: Yes I have reviewed all pertinent clinical information, including history, physical exam and plan: Yes Notes (Text): Medical attending: Patient was seen and examined by me, agrees the above note by medical staffing coordinator. The patient did not have any new concerns at this time, she reports that she does have pain in the lower extremity from time to time however it is controlled and not excruciating pain. Nevertheless the patient reports that her right lower extremity looks much better since coming here. The other item is that she has a very poor appetite she explains to us that she simply does not agree with the food here and she did eat some breakfast. I did observe her walking in the hallway without assistance she is able to do so slowly. She is also been out of the bed to chair many times to So at this time were pending on the IV antibiotics which were still twice a day at this time Thank you very much, Jv Esquivel
[2017-03-27] MEDS: Levothyroxine 50 MCG TAB PO SCH (06:28)
[2017-03-27 07:11] LABS: BASO # 0.1 K/uL (0.0-0.2); BASO % 0.8 % (0.0-2.0); EOS # 0.2 K/uL (0.0-0.7); EOS % 2.3 % (0.0-4.0); HEMATOCRIT 36.1 % (34.0-47.0); LYMPH # 3.2 K/uL (1.0-4.3); LYMPH % 33.8 % (20.0-40.0); MEAN CELL VOLUME 87.3 fL (81.0-99.0); MEAN CORPUSCULAR HEMOGLOBIN 28.7 pg (27.0-31.0); MEAN CORPUSCULAR HGB CONC 32.9 g/dL (33.0-37.0); MEAN PLATELET VOLUME 8.9 fL (7.2-11.7); NRBC % 0.1 % (0.0-2.0); RED CELL DISTRIBUTION WIDTH 13.6 % (11.5-14.5); WHITE BLOOD COUNT 9.5 K/uL (4.8-10.8)
[2017-03-27] MEDS: Fluticasone-Salmeterol 500-50mcg Diskus INH SCH ×2 (07:12→19:26)
[2017-03-27] MEDS: Albuterol HFA 90 mcg/actuation (8 g) IH PRN ×3 (07:12→19:25)
[2017-03-27 07:29] LABS: CHLORIDE 100 mmol/L (98-107)
[2017-03-27 07:30] LABS: SODIUM 135 mmol/L (132-148)
[2017-03-27 07:31] LABS: POTASSIUM 3.9 mmol/L (3.6-5.2)
[2017-03-27 07:32] LABS: GFR AFRICAN-AMERICAN > 60
[2017-03-27 07:33] LABS: ALKALINE PHOSPHATASE 51 U/L (38-126); ALT/SGPT 33 U/L (9-52); AST/SGOT 24 U/L (14-36); BILIRUBIN,TOTAL 0.6 mg/dL (0.2-1.3); BLOOD UREA NITROGEN 14 mg/dL (7-17); CALCIUM 8.7 mg/dl (8.6-10.4); CARBON DIOXIDE 25 mmol/L (22-30); GLUCOSE,RANDOM 89 mg/dL (65-105); TOTAL PROTEIN 6.3 g/dL (6.3-8.3)
[2017-03-27 07:36] LABS: ALB/GLOB RATIO 1.2 (1.0-2.1)
--- NOTE | 2017-03-27 08:15 | CP.PCM.PN ---
Subjective - Date & Time of Evaluation Date of Evaluation: 03/27/17 Time of Evaluation: 08:15 - Subjective Subjective: 71 year old female was seen resting comfortably at bedside this morning regarding right second digit pain. Patient NAD, AAOx3. Admits to some tenderness to her right 2nd toe, but states its better than yesterday. She denies any n/v/f/c/sob/cp. Objective - Vital Signs/Intake and Output Vital Signs (last 24 hours): Temp Pulse Resp BP Pulse Ox 98.5 F 83 20 103/63 96 03/26/17 23:40 03/26/17 23:40 03/26/17 23:40 03/26/17 23:40 03/26/17 23:40 Intake and Output: 03/27/17 03/27/17 06:59 18:59 Intake Total 600 Balance 600 - Medications Medications: Current Medications Acetaminophen (Tylenol 325mg Tab) 650 mg PO Q6H PRN PRN Reason: Pain, Mild (1-3) Albuterol (Ventolin Hfa 90 Mcg/Actuation (8 G)) 2 puff IH RQ4 PRN PRN Reason: Shortness of Breath Last Admin: 03/27/17 07:12 Dose: 2 puff Diphenhydramine HCl (Benadryl) 25 mg PO Q12 PRN PRN Reason: Itching / Pruritus Last Admin: 03/27/17 00:51 Dose: 25 mg Enoxaparin Sodium (Lovenox) 40 mg SC DAILY [facility] Last Admin: 03/26/17 10:08 Dose: 40 mg Guaifenesin/Dextromethorphan (Robitussin Dm) 10 ml PO Q4H PRN PRN Reason: Cough and congestion Last Admin: 03/26/17 00:26 Dose: 10 ml Hydrochlorothiazide (Hydrodiuril) 25 mg PO DAILY [facility] Last Admin: 03/26/17 10:07 Dose: 25 mg Levothyroxine Sodium (Synthroid) 50 mcg PO DAILY@0630 [facility] Last Admin: 03/27/17 06:28 Dose: 50 mcg Lisinopril (Zestril) 10 mg PO DAILY [facility] Last Admin: 03/26/17 10:08 Dose: 10 mg Montelukast Sodium (Singulair) 10 mg PO HS [facility] Last Admin: 03/26/17 21:21 Dose: 10 mg Morphine Sulfate (Morphine) 1 mg IVP Q4 PRN PRN Reason: Pain, severe (8-10) Last Admin: 03/27/17 00:50 Dose: 1 mg Multivitamins (Hexavitamin) 1 tab PO DAILY [facility] Last Admin: 03/26/17 10:07 Dose: 1 tab Pantoprazole Sodium (Protonix Ec Tab) 40 mg PO DAILY [facility] Last Admin: 03/26/17 10:07 Dose: 40 mg Rosuvastatin Calcium (Crestor) 5 mg PO HS [facility] Last Admin: 03/26/17 21:21 Dose: 5 mg Fluticasone/Salmeterol (Advair Diskus 500/50) 1 puff INH RQ12 [facility] Last Admin: 03/27/17 07:12 Dose: 1 puff - Labs Labs: 03/27/17 06:55 03/27/17 06:55 PT 12.4 SECONDS (9.7-12.2) H 03/19/17 19:53 INR 1.1 03/19/17 19:53 APTT 51 SECONDS (21-34) H D 03/21/17 17:17 - Constitutional Appears: Well, Non-toxic, No Acute Distress - Extremities Exam Additional comments: Right lower extremity focused exam: Vasc: DP and PT pulses palpable. Skin temperature warm to cool from proximal to distal. Neuro: Gross sensation intact Ortho: Tenderness on palpation noted to the right 2nd digit Derm: Decreased edema noted to right 2nd digit. No open lesions, no drainage, no probe to bone noted. Right 2nd digit skin is slightly discolored dark- improving. - Neurological Exam Neurological Exam: Alert, Awake, Oriented x3 - Psychiatric Exam Psychiatric exam: Normal Affect, Normal Mood Assessment and Plan - Assessment and Plan (Free Text) Assessment: 71 year old female 9 weeks status post right 2nd digit hammertoe correction Plan: patient examined and evaluated discussed in detail with Dr. Grace chart, labs, vitals reviewed no dressing needed continue pain medication per primary continue IV abx per primary upon d/c patient to follow up in podiatry clinic podiatry will continue to follow patient while in house
[2017-03-27] MEDS: Pantoprazole 40 mg EC Tab PO SCH (11:06)
[2017-03-27] MEDS: Multiple Vitamins Tab PO SCH (11:06)
[2017-03-27] MEDS: Enoxaparin 40 mg Syringe SC SCH (11:07)
[2017-03-27] MEDS: Vancomycin 1 gm/NS 200 ml 1 GM/200 ML BAG IVPB SCH (14:07)
[2017-03-28] MEDS: Levothyroxine 50 MCG TAB PO SCH (05:56)
--- NOTE | 2017-03-28 07:29 | CP.PCM.PN ---
<Vijay Herrera - Last Filed: 03/28/17 13:20> Subjective - Date & Time of Evaluation Date of Evaluation: 03/28/17 Time of Evaluation: 07:19 - Subjective Subjective: PGY1 Medicine Note for Dr. Esquivel Patient seen and examined at bedside this morning. Patient is still complaining of right foot pain and right knee pain. She also states that she is still itchy but has not taken Benadryl this morning. She otherwise states that she is feeling better, slept well, ambulates frequently. She states she still hasn't been eating much. "I hate this food. I want to go home and eat my own food." Denies f/c, n/v, d/c, sob or cp. Objective - Vital Signs/Intake and Output Vital Signs (last 24 hours): Temp Pulse Resp BP Pulse Ox 99.0 F 75 18 120/71 96 03/27/17 23:55 03/27/17 23:55 03/27/17 23:55 03/27/17 23:55 03/27/17 23:55 Intake and Output: 03/28/17 03/28/17 06:59 18:59 Intake Total 400 Balance 400 - Medications Medications: Current Medications Acetaminophen (Tylenol 325mg Tab) 650 mg PO Q6H PRN PRN Reason: Pain, Mild (1-3) Albuterol (Ventolin Hfa 90 Mcg/Actuation (8 G)) 2 puff IH RQ4 PRN PRN Reason: Shortness of Breath Last Admin: 03/27/17 19:25 Dose: 2 puff Diphenhydramine HCl (Benadryl) 25 mg PO Q12 PRN PRN Reason: Itching / Pruritus Last Admin: 03/27/17 21:49 Dose: 25 mg Docusate Sodium (Colace) 100 mg PO BID [facility] Last Admin: 03/27/17 16:35 Dose: 100 mg Enoxaparin Sodium (Lovenox) 40 mg SC DAILY [facility] Last Admin: 03/27/17 11:07 Dose: 40 mg Guaifenesin/Dextromethorphan (Robitussin Dm) 10 ml PO Q4H PRN PRN Reason: Cough and congestion Last Admin: 03/26/17 00:26 Dose: 10 ml Hydrochlorothiazide (Hydrodiuril) 25 mg PO DAILY [facility] Last Admin: 03/27/17 11:07 Dose: Not Given Vancomycin/Sodium Chloride (Vancocin) 1 gm in 200 mls @ 133.333 mls/hr IVPB Q12H [facility] Stop: 04/01/17 13:31 Last Admin: 03/27/17 14:07 Dose: 133.333 mls/hr Levothyroxine Sodium (Synthroid) 50 mcg PO DAILY@0630 [facility] Last Admin: 03/28/17 05:56 Dose: 50 mcg Lisinopril (Zestril) 10 mg PO DAILY [facility] Last Admin: 03/27/17 11:08 Dose: Not Given Montelukast Sodium (Singulair) 10 mg PO HS [facility] Last Admin: 03/27/17 21:49 Dose: 10 mg Morphine Sulfate (Morphine) 1 mg IVP Q4 PRN PRN Reason: Pain, severe (8-10) Last Admin: 03/28/17 02:06 Dose: 1 mg Multivitamins (Hexavitamin) 1 tab PO DAILY [facility] Last Admin: 03/27/17 11:06 Dose: 1 tab Pantoprazole Sodium (Protonix Ec Tab) 40 mg PO DAILY [facility] Last Admin: 03/27/17 11:06 Dose: 40 mg Rosuvastatin Calcium (Crestor) 5 mg PO HS [facility] Last Admin: 03/27/17 21:49 Dose: 5 mg Fluticasone/Salmeterol (Advair Diskus 500/50) 1 puff INH RQ12 [facility] Last Admin: 03/27/17 19:26 Dose: 1 puff - Labs Labs: 03/27/17 06:55 03/27/17 06:55 PT 12.4 SECONDS (9.7-12.2) H 03/19/17 19:53 INR 1.1 03/19/17 19:53 APTT 51 SECONDS (21-34) H D 03/21/17 17:17 - Constitutional Appears: Non-toxic, No Acute Distress - Head Exam Head Exam: ATRAUMATIC, NORMOCEPHALIC - Eye Exam Eye Exam: EOMI, Normal appearance - ENT Exam ENT Exam: Mucous Membranes Moist - Respiratory Exam Respiratory Exam: Clear to Ausculation Bilateral, NORMAL BREATHING PATTERN. absent: Accessory Muscle Use, Rales, Wheezes, Respiratory Distress - Cardiovascular Exam Cardiovascular Exam: REGULAR RHYTHM, +S1, +S2 - GI/Abdominal Exam GI & Abdominal Exam: Soft, Normal Bowel Sounds. absent: Distended, Guarding, Tenderness - Extremities Exam Extremities Exam: Normal Inspection. absent: Calf Tenderness, Pedal Edema Additional comments: Dusky color of 2nd and 3rd digit on right foot improving. Tender to palpation. - Neurological Exam Neurological Exam: Alert, Awake, Oriented x3 - Psychiatric Exam Psychiatric exam: Normal Affect, Normal Mood - Skin Skin Exam: Dry, Normal Color, Warm Assessment and Plan - Assessment and Plan (Free Text) Plan: Right foot pain s/p 2nd digit arthroplasty with K wire fixation 01/21/2017 Consulted Vascular Surgery - Dr. Lay - acute vascular compromise to extremities unlikely CTA 03/19 - unremarkable, no evidence of peripheral disease. Consulted Podiatry - Dr. Grace - help appreciated Consulted ID - Dr. Alcala - help appreciated Heparin Drip was started 03/19/17 Vanco 1g IV Q12H - Spoke with Dr. Cartwright, will keep patient in hospital until saturday04/01/17 on same regiment. Will re-eval next week for possible adjustment of abx to allow for out pt follow up. Morphine 1mg IVP Q4H PRN PICC line placed 03/23/17 HTN Lisinopril 10mg daily, HCTZ 25mg PO daily A1c 5.8 TSH 1.86 lipid panel -WNL Hypothyroid Synthroid 50mcg daily HLD Crestor 10mg daily Asthma Singular 10mg daily Advair Diskus 500-50mcg/dose 1 puff daily Ventolin HFA 108 (90 base) mcg/act 2 puffs Q4H PRN Polyarthritis Celebrex 100mg daily Prophylactic Care Heparin Drip discontinued. Started on Lovenox 40mg SC daily Pepcid 20mg daily Tylenol 650mg Q6H for headaches Patient staying in hospital for now to receive IV abx. Awaiting re-evaluation by ID to adjust abx regiment to allow for out pt treatment. No update. Case discussed with Dr. Sierra Herrera PGY1 <Jv Esquivel - Last Filed: 03/28/17 17:05> Objective - Vital Signs/Intake and Output Vital Signs (last 24 hours): Temp Pulse Resp BP Pulse Ox 98.4 F 78 18 135/67 99 03/28/17 16:31 03/28/17 16:31 03/28/17 16:31 03/28/17 16:31 03/28/17 16:31 Intake and Output: 03/28/17 03/28/17 06:59 18:59 Intake Total 400 Balance 400 - Medications Medications: Current Medications Acetaminophen (Tylenol 325mg Tab) 650 mg PO Q6H PRN PRN Reason: Pain, Mild (1-3) Albuterol (Ventolin Hfa 90 Mcg/Actuation (8 G)) 2 puff IH RQ4 PRN PRN Reason: Shortness of Breath Last Admin: 03/28/17 13:21 Dose: 2 puff Diphenhydramine HCl (Benadryl) 25 mg PO Q12 PRN PRN Reason: Itching / Pruritus Last Admin: 03/27/17 21:49 Dose: 25 mg Docusate Sodium (Colace) 100 mg PO BID [facility] Last Admin: 03/28/17 09:47 Dose: 100 mg Enoxaparin Sodium (Lovenox) 40 mg SC DAILY [facility] Last Admin: 03/28/17 09:47 Dose: 40 mg Guaifenesin/Dextromethorphan (Robitussin Dm) 10 ml PO Q4H PRN PRN Reason: Cough and congestion Last Admin: 03/26/17 00:26 Dose: 10 ml Hydrochlorothiazide (Hydrodiuril) 25 mg PO DAILY [facility] Last Admin: 03/28/17 09:47 Dose: 25 mg Vancomycin/Sodium Chloride (Vancocin) 1 gm in 200 mls @ 133.333 mls/hr IVPB Q12H [facility] Stop: 04/01/17 13:31 Last Admin: 03/28/17 13:40 Dose: 133.333 mls/hr Ketorolac Tromethamine (Toradol) 30 mg IVP Q6 PRN PRN Reason: Pain, severe (8-10) Levothyroxine Sodium (Synthroid) 50 mcg PO DAILY@0630 [facility] Last Admin: 03/28/17 05:56 Dose: 50 mcg Lisinopril (Zestril) 10 mg PO DAILY [facility] Last Admin: 03/28/17 09:47 Dose: 10 mg Montelukast Sodium (Singulair) 10 mg PO HS [facility] Last Admin: 03/27/17 21:49 Dose: 10 mg Morphine Sulfate (Morphine) 1 mg IVP Q4 PRN PRN Reason: Pain, severe (8-10) Last Admin: 03/28/17 09:53 Dose: 1 mg Multivitamins (Hexavitamin) 1 tab PO DAILY [facility] Last Admin: 03/28/17 09:47 Dose: 1 tab Pantoprazole Sodium (Protonix Ec Tab) 40 mg PO DAILY [facility] Last Admin: 03/28/17 09:47 Dose: 40 mg Rosuvastatin Calcium (Crestor) 5 mg PO HS [facility] Last Admin: 03/27/17 21:49 Dose: 5 mg Fluticasone/Salmeterol (Advair Diskus 500/50) 1 puff INH RQ12 [facility] Last Admin: 03/28/17 08:09 Dose: 1 puff - Labs Labs: 03/28/17 04:00 03/28/17 07:25 PT 12.4 SECONDS (9.7-12.2) H 03/19/17 19:53 INR 1.1 03/19/17 19:53 APTT 51 SECONDS (21-34) H D 03/21/17 17:17 Attending/Attestation - Attestation I have personally seen and examined this patient.: Yes I have fully participated in the care of the patient.: Yes I have reviewed all pertinent clinical information, including history, physical exam and plan: Yes Notes (Text): 03/28/17 17:04 Medical Attending: Agree with the above note by the resident. No new acute changes or concerns at this time.
[2017-03-28 07:50] LABS: BASO # 0.1 K/uL (0.0-0.2); EOS # 0.2 K/uL (0.0-0.7); EOS % 2.3 % (0.0-4.0); HEMATOCRIT 35.5 % (34.0-47.0); LYMPH # 3.2 K/uL (1.0-4.3); LYMPH % 33.5 % (20.0-40.0); MEAN CELL VOLUME 86.5 fL (81.0-99.0); MEAN CORPUSCULAR HEMOGLOBIN 29.2 pg (27.0-31.0); MEAN CORPUSCULAR HGB CONC 33.7 g/dL (33.0-37.0); MEAN PLATELET VOLUME 9.2 fL (7.2-11.7); MONO % 10.7 % (0.0-10.0); NRBC % 0.1 % (0.0-2.0); RED CELL DISTRIBUTION WIDTH 13.3 % (11.5-14.5); WHITE BLOOD COUNT 9.6 K/uL (4.8-10.8)
[2017-03-28] MEDS: Albuterol HFA 90 mcg/actuation (8 g) IH PRN ×2 (08:09→13:21)
[2017-03-28] MEDS: Fluticasone-Salmeterol 500-50mcg Diskus INH SCH ×2 (08:09→20:56)
[2017-03-28 08:19] LABS: CHLORIDE 102 mmol/L (98-107); POTASSIUM 3.8 mmol/L (3.6-5.2); SODIUM 137 mmol/L (132-148)
[2017-03-28 08:21] LABS: AST/SGOT 25 U/L (14-36); BILIRUBIN,TOTAL 0.7 mg/dL (0.2-1.3); CARBON DIOXIDE 26 mmol/L (22-30); GFR AFRICAN-AMERICAN > 60
[2017-03-28 08:22] LABS: ALB/GLOB RATIO 1.1 (1.0-2.1); ALKALINE PHOSPHATASE 53 U/L (38-126); ALT/SGPT 30 U/L (9-52); BLOOD UREA NITROGEN 15 mg/dL (7-17); CALCIUM 8.9 mg/dl (8.6-10.4); GLUCOSE,RANDOM 86 mg/dL (65-105); TOTAL PROTEIN 6.4 g/dL (6.3-8.3)
[2017-03-28] MEDS: Pantoprazole 40 mg EC Tab PO SCH (09:47)
[2017-03-28] MEDS: Enoxaparin 40 mg Syringe SC SCH (09:47)
[2017-03-28] MEDS: Multiple Vitamins Tab PO SCH (09:47)
--- NOTE | 2017-03-28 12:21 | CP.PCM.PN ---
Subjective - Date & Time of Evaluation Date of Evaluation: 03/28/17 Time of Evaluation: 12:19 - Subjective Subjective: 71 year old female was seen resting comfortably at bedside this morning regarding right second digit pain. Patient NAD, AAOx3. Patient states that the swelling of her toe has gone down more and she has less pain than yesterday. She denies any n/v/f/c/sob/cp. Objective - Vital Signs/Intake and Output Vital Signs (last 24 hours): Temp Pulse Resp BP Pulse Ox 98.9 F 60 20 118/71 95 03/28/17 08:00 03/28/17 08:00 03/28/17 08:00 03/28/17 08:00 03/28/17 08:00 Intake and Output: 03/28/17 03/28/17 06:59 18:59 Intake Total 400 Balance 400 - Medications Medications: Current Medications Acetaminophen (Tylenol 325mg Tab) 650 mg PO Q6H PRN PRN Reason: Pain, Mild (1-3) Albuterol (Ventolin Hfa 90 Mcg/Actuation (8 G)) 2 puff IH RQ4 PRN PRN Reason: Shortness of Breath Last Admin: 03/28/17 08:09 Dose: 2 puff Diphenhydramine HCl (Benadryl) 25 mg PO Q12 PRN PRN Reason: Itching / Pruritus Last Admin: 03/27/17 21:49 Dose: 25 mg Docusate Sodium (Colace) 100 mg PO BID [facility] Last Admin: 03/28/17 09:47 Dose: 100 mg Enoxaparin Sodium (Lovenox) 40 mg SC DAILY [facility] Last Admin: 03/28/17 09:47 Dose: 40 mg Guaifenesin/Dextromethorphan (Robitussin Dm) 10 ml PO Q4H PRN PRN Reason: Cough and congestion Last Admin: 03/26/17 00:26 Dose: 10 ml Hydrochlorothiazide (Hydrodiuril) 25 mg PO DAILY [facility] Last Admin: 03/28/17 09:47 Dose: 25 mg Vancomycin/Sodium Chloride (Vancocin) 1 gm in 200 mls @ 133.333 mls/hr IVPB Q12H [facility] Stop: 04/01/17 13:31 Last Admin: 03/27/17 14:07 Dose: 133.333 mls/hr Levothyroxine Sodium (Synthroid) 50 mcg PO DAILY@0630 [facility] Last Admin: 03/28/17 05:56 Dose: 50 mcg Lisinopril (Zestril) 10 mg PO DAILY [facility] Last Admin: 03/28/17 09:47 Dose: 10 mg Montelukast Sodium (Singulair) 10 mg PO HS [facility] Last Admin: 03/27/17 21:49 Dose: 10 mg Morphine Sulfate (Morphine) 1 mg IVP Q4 PRN PRN Reason: Pain, severe (8-10) Last Admin: 03/28/17 09:53 Dose: 1 mg Multivitamins (Hexavitamin) 1 tab PO DAILY [facility] Last Admin: 03/28/17 09:47 Dose: 1 tab Pantoprazole Sodium (Protonix Ec Tab) 40 mg PO DAILY [facility] Last Admin: 03/28/17 09:47 Dose: 40 mg Rosuvastatin Calcium (Crestor) [address] [facility] Last Admin: 03/27/17 21:49 Dose: 5 mg Fluticasone/Salmeterol (Advair Diskus 500/50) 1 puff INH RQ12 [facility] Last Admin: 03/28/17 08:09 Dose: 1 puff - Labs Labs: 03/28/17 04:00 03/28/17 07:25 PT 12.4 SECONDS (9.7-12.2) H 03/19/17 19:53 INR 1.1 03/19/17 19:53 APTT 51 SECONDS (21-34) H D 03/21/17 17:17 - Constitutional Appears: Well, Non-toxic, No Acute Distress - Extremities Exam Additional comments: Right lower extremity focused exam: Vasc: DP and PT pulses palpable. Skin temperature warm to cool from proximal to distal. Neuro: Gross sensation intact Ortho: Tenderness on palpation noted to the right 2nd digit Derm: Decreased edema noted to right 2nd digit. No open lesions, no drainage, no probe to bone noted. Right 2nd digit skin is slightly discolored dark- improving. - Neurological Exam Neurological Exam: Alert, Awake, Oriented x3 - Psychiatric Exam Psychiatric exam: Normal Affect, Normal Mood Assessment and Plan - Assessment and Plan (Free Text) Assessment: 71 year old female 9 weeks status post right 2nd digit hammertoe correction Plan: patient examined and evaluated discussed in detail with Dr. Grace chart, labs, vitals reviewed no dressing needed continue pain medication per primary continue IV abx per primary upon d/c patient to follow up in podiatry clinic podiatry will continue to follow patient while in house
[2017-03-28] MEDS: Vancomycin 1 gm/NS 200 ml 1 GM/200 ML BAG IVPB SCH (13:40)
[2017-03-28] MEDS: guaiFENesin DM 200 mg-20 mg/10 ml UD PO PRN (18:43)
[2017-03-29] MEDS: Vancomycin 1 gm/NS 200 ml 1 GM/200 ML BAG IVPB SCH ×2 (01:38→12:49)
[2017-03-29] MEDS: Levothyroxine 50 MCG TAB PO SCH (05:37)
[2017-03-29 06:45] LABS: CHLORIDE 99 mmol/L (98-107)
[2017-03-29 06:46] LABS: POTASSIUM 3.5 mmol/L (3.6-5.2); SODIUM 134 mmol/L (132-148)
[2017-03-29 06:48] LABS: CARBON DIOXIDE 27 mmol/L (22-30); GFR AFRICAN-AMERICAN > 60
[2017-03-29 06:49] LABS: ALB/GLOB RATIO 1.1 (1.0-2.1); ALKALINE PHOSPHATASE 53 U/L (38-126); ALT/SGPT 33 U/L (9-52); AST/SGOT 24 U/L (14-36); BASO # 0.1 K/uL (0.0-0.2); BASO % 0.8 % (0.0-2.0); BILIRUBIN,TOTAL 0.7 mg/dL (0.2-1.3); BLOOD UREA NITROGEN 16 mg/dL (7-17); CALCIUM 8.6 mg/dl (8.6-10.4); EOS # 0.3 K/uL (0.0-0.7); EOS % 3.4 % (0.0-4.0); GLUCOSE,RANDOM 86 mg/dL (65-105); HEMATOCRIT 34.2 % (34.0-47.0); LYMPH # 3.4 K/uL (1.0-4.3); LYMPH % 42.7 % (20.0-40.0); MEAN CELL VOLUME 87.1 fL (81.0-99.0); MEAN CORPUSCULAR HEMOGLOBIN 29.3 pg (27.0-31.0); MEAN CORPUSCULAR HGB CONC 33.6 g/dL (33.0-37.0); MEAN PLATELET VOLUME 9.1 fL (7.2-11.7); MONO # 0.8 K/uL (0.0-0.8); RED CELL DISTRIBUTION WIDTH 13.3 % (11.5-14.5); TOTAL PROTEIN 6.2 g/dL (6.3-8.3); WHITE BLOOD COUNT 7.9 K/uL (4.8-10.8)
--- NOTE | 2017-03-29 07:32 | CP.PCM.PN ---
<Vijay Herrera - Last Filed: 03/29/17 14:22> Subjective - Date & Time of Evaluation Date of Evaluation: 03/29/17 Time of Evaluation: 07:28 - Subjective Subjective: PGY1 Medicine Note for Dr. Esquivel Patient seen and examined this morning at bedside. Patient states that she is still experiencing pain in her right foot and knee. Shays the foot pain has improved since yesterday but the knee pain has remained the same. She says she is still feels itchy all over but when she takes [place], it is greatly improved. She continues to complain of no appetite. Patient states that she is able to get up and walk around with minimal difficulty. Denies f/c, n/v, d/c, sob, cp, lightheadedness or dizziness. Objective - Vital Signs/Intake and Output Vital Signs (last 24 hours): Temp Pulse Resp BP Pulse Ox 97.5 F L 51 L 20 111/71 99 03/28/17 23:35 03/28/17 23:35 03/28/17 23:35 03/28/17 23:35 03/28/17 23:35 - Medications Medications: Current Medications Acetaminophen (Tylenol 325mg Tab) 650 mg PO Q6H PRN PRN Reason: Pain, Mild (1-3) Last Admin: 03/28/17 22:11 Dose: 650 mg Albuterol (Ventolin Hfa 90 Mcg/Actuation (8 G)) 2 puff IH RQ4 PRN PRN Reason: Shortness of Breath Last Admin: 03/28/17 13:21 Dose: 2 puff Diphenhydramine HCl (Benadryl) 25 mg PO Q12 PRN PRN Reason: Itching / Pruritus Last Admin: 03/28/17 19:13 Dose: 25 mg Docusate Sodium (Colace) 100 mg PO BID [facility] Last Admin: 03/28/17 18:40 Dose: 100 mg Enoxaparin Sodium (Lovenox) 40 mg SC DAILY [facility] Last Admin: 03/28/17 09:47 Dose: 40 mg Guaifenesin/Dextromethorphan (Robitussin Dm) 10 ml PO Q4H PRN PRN Reason: Cough and congestion Last Admin: 03/28/17 18:43 Dose: 10 ml Hydrochlorothiazide (Hydrodiuril) 25 mg PO DAILY [facility] Last Admin: 03/28/17 09:47 Dose: 25 mg Vancomycin/Sodium Chloride (Vancocin) 1 gm in 200 mls @ 133.333 mls/hr IVPB Q12H [facility] Stop: 04/01/17 13:31 Last Admin: 03/29/17 01:38 Dose: 133.333 mls/hr Ketorolac Tromethamine (Toradol) 30 mg IVP Q6 PRN PRN Reason: Pain, severe (8-10) Last Admin: 03/29/17 05:46 Dose: 30 mg Levothyroxine Sodium (Synthroid) 50 mcg PO DAILY@0630 [facility] Last Admin: 03/29/17 05:37 Dose: 50 mcg Lisinopril (Zestril) 10 mg PO DAILY [facility] Last Admin: 03/28/17 09:47 Dose: 10 mg Montelukast Sodium (Singulair) 10 mg PO HS [facility] Last Admin: 03/28/17 22:09 Dose: 10 mg Morphine Sulfate (Morphine) 1 mg IVP Q4 PRN PRN Reason: Pain, severe (8-10) Last Admin: 03/28/17 09:53 Dose: 1 mg Multivitamins (Hexavitamin) 1 tab PO DAILY [facility] Last Admin: 03/28/17 09:47 Dose: 1 tab Pantoprazole Sodium (Protonix Ec Tab) 40 mg PO DAILY [facility] Last Admin: 03/28/17 09:47 Dose: 40 mg Rosuvastatin Calcium (Crestor) 5 mg PO HS [facility] Last Admin: 03/28/17 22:09 Dose: 5 mg Fluticasone/Salmeterol (Advair Diskus 500/50) 1 puff INH RQ12 [facility] Last Admin: 03/28/17 20:56 Dose: Not Given - Labs Labs: 03/29/17 06:19 03/29/17 06:19 PT 12.4 SECONDS (9.7-12.2) H 03/19/17 19:53 INR 1.1 03/19/17 19:53 APTT 51 SECONDS (21-34) H D 03/21/17 17:17 - Constitutional Appears: Non-toxic, No Acute Distress - Head Exam Head Exam: NORMAL INSPECTION, NORMOCEPHALIC - Eye Exam Eye Exam: EOMI, Normal appearance - ENT Exam ENT Exam: Mucous Membranes Moist - Respiratory Exam Respiratory Exam: Clear to Ausculation Bilateral, Rales, NORMAL BREATHING PATTERN. absent: Accessory Muscle Use, Wheezes, Respiratory Distress - Cardiovascular Exam Cardiovascular Exam: REGULAR RHYTHM, +S1, +S2 - GI/Abdominal Exam GI & Abdominal Exam: Soft, Normal Bowel Sounds. absent: Distended, Guarding, Rigid, Tenderness - Extremities Exam Extremities Exam: Normal Capillary Refill. absent: Calf Tenderness, Pedal Edema Additional comments: Discoloration of 2nd and 3rd digit on right foot improving. Tender to palpation on the 2nd digit only. - Neurological Exam Neurological Exam: Alert, Awake, Oriented x3 - Psychiatric Exam Psychiatric exam: Normal Affect, Normal Mood - Skin Skin Exam: Dry, Normal Color, Warm Assessment and Plan - Assessment and Plan (Free Text) Plan: Right foot pain s/p 2nd digit arthroplasty with K wire fixation 01/21/2017 Consulted Vascular Surgery - Dr. Lay - acute vascular compromise to extremities unlikely CTA 03/19 - unremarkable, no evidence of peripheral disease. Consulted Podiatry - Dr. Grace - help appreciated Consulted ID - Dr. Alcala - help appreciated Heparin Drip was started 03/19/17 Vanco 1g IV Q12H - Spoke with Dr. Cartwright, will keep patient in hospital until saturday04/01/17 on same regiment. Will re-eval next week for possible adjustment of abx to allow for out pt follow up. Morphine 1mg IVP Q4H PRN PICC line placed 03/23/17 HTN Lisinopril 10mg daily, HCTZ 25mg PO daily A1c 5.8 TSH 1.86 lipid panel -WNL Hypothyroid Synthroid 50mcg daily HLD Crestor 10mg daily Asthma Singular 10mg daily Advair Diskus 500-50mcg/dose 1 puff daily Ventolin HFA 108 (90 base) mcg/act 2 puffs Q4H PRN Polyarthritis Celebrex 100mg daily Prophylactic Care Heparin Drip discontinued. Started on Lovenox 40mg SC daily Pepcid 20mg daily Tylenol 650mg Q6H for headaches Patient staying in hospital for now to receive IV abx. Awaiting re-evaluation by ID to adjust abx regiment to allow for out pt treatment. Patient will be re- evaluated on Sunday 04/01. No update. Case discussed with Dr. Sierra Linares Sharon PGY1 <Jv Esquivel H - Last Filed: 03/29/17 15:49> Objective - Vital Signs/Intake and Output Vital Signs (last 24 hours): Temp Pulse Resp BP Pulse Ox 98.1 F 59 L 20 106/59 L 98 03/29/17 15:31 03/29/17 15:31 03/29/17 15:31 03/29/17 15:31 03/29/17 15:31 Intake and Output: 03/29/17 03/29/17 06:59 18:59 Intake Total 700 Balance 700 - Medications Medications: Current Medications Acetaminophen (Tylenol 325mg Tab) 650 mg PO Q6H PRN PRN Reason: Pain, Mild (1-3) Last Admin: 03/28/17 22:11 Dose: 650 mg Albuterol (Ventolin Hfa 90 Mcg/Actuation (8 G)) 2 puff IH RQ4 PRN PRN Reason: Shortness of Breath Last Admin: 03/29/17 11:18 Dose: 2 puff Diphenhydramine HCl (Benadryl) 25 mg PO Q12 PRN PRN Reason: Itching / Pruritus Last Admin: 03/28/17 19:13 Dose: 25 mg Docusate Sodium (Colace) 100 mg PO BID [facility] Last Admin: 03/29/17 10:08 Dose: 100 mg Enoxaparin Sodium (Lovenox) 40 mg SC DAILY [facility] Last Admin: 03/29/17 10:09 Dose: 40 mg Guaifenesin/Dextromethorphan (Robitussin Dm) 10 ml PO Q4H PRN PRN Reason: Cough and congestion Last Admin: 03/28/17 18:43 Dose: 10 ml Hydrochlorothiazide (Hydrodiuril) 25 mg PO DAILY [facility] Last Admin: 03/29/17 10:09 Dose: 25 mg Vancomycin/Sodium Chloride (Vancocin) 1 gm in 200 mls @ 133.333 mls/hr IVPB Q12H [facility] Stop: 04/01/17 13:31 Last Admin: 03/29/17 12:49 Dose: 133.333 mls/hr Ketorolac Tromethamine (Toradol) 30 mg IVP Q6 PRN PRN Reason: Pain, severe (8-10) Last Admin: 03/29/17 05:46 Dose: 30 mg Levothyroxine Sodium (Synthroid) 50 mcg PO DAILY@0630 [facility] Last Admin: 03/29/17 05:37 Dose: 50 mcg Lisinopril (Zestril) 10 mg PO DAILY [facility] Last Admin: 03/29/17 10:08 Dose: 10 mg Montelukast Sodium (Singulair) 10 mg PO HS [facility] Last Admin: 03/28/17 22:09 Dose: 10 mg Morphine Sulfate (Morphine) 1 mg IVP Q4 PRN PRN Reason: Pain, severe (8-10) Last Admin: 03/28/17 09:53 Dose: 1 mg Multivitamins (Hexavitamin) 1 tab PO DAILY [facility] Last Admin: 03/29/17 10:09 Dose: 1 tab Pantoprazole Sodium (Protonix Ec Tab) 40 mg PO DAILY [facility] Last Admin: 03/29/17 10:08 Dose: 40 mg Rosuvastatin Calcium (Crestor) 5 mg PO HS [facility] Last Admin: 03/28/17 22:09 Dose: 5 mg Fluticasone/Salmeterol (Advair Diskus 500/50) 1 puff INH RQ12 [facility] Last Admin: 03/29/17 10:11 Dose: 1 puff - Labs Labs: 03/29/17 06:19 03/29/17 06:19 PT 12.4 SECONDS (9.7-12.2) H 03/19/17 19:53 INR 1.1 03/19/17 19:53 APTT 51 SECONDS (21-34) H D 03/21/17 17:17 Attending/Attestation - Attestation I have personally seen and examined this patient.: Yes I have fully participated in the care of the patient.: Yes I have reviewed all pertinent clinical information, including history, physical exam and plan: Yes Notes (Text): 03/29/17 15:47 Medical Attending: Patient was seen and examined by me. Agree with the above note by the resident. The patient was not in any acute distress when we saw her. She continues to try to be out of bed to chair as well as walk around the [place] whenever possible. She reports still having some pain when walking. CBC is stable, and the CMP also stable as well. She continues to have poor appettie she insist the food is not to her liking. thank you Jv Esquivel
[2017-03-29] MEDS: Pantoprazole 40 mg EC Tab PO SCH (10:08)
[2017-03-29] MEDS: Enoxaparin 40 mg Syringe SC SCH (10:09)
[2017-03-29] MEDS: Multiple Vitamins Tab PO SCH (10:09)
[2017-03-29] MEDS: Fluticasone-Salmeterol 500-50mcg Diskus INH SCH ×2 (10:11→20:24)
[2017-03-29] MEDS: Albuterol HFA 90 mcg/actuation (8 g) IH PRN (11:18)
--- NOTE | 2017-03-29 13:33 | CP.PCM.PN ---
Subjective - Date & Time of Evaluation Date of Evaluation: 03/29/17 Time of Evaluation: 09:30 - Subjective Subjective: Podiatry progress note for Dr. Grace 71 year old female was seen resting comfortably at bedside this morning regarding right second digit pain. Patient in NAD, AAOx3. Patient states that the swelling of her toe has gone down more and she has less pain than yesterday. Patient states it is still painful to touch the toe but she is seeing an improvement overall. Patient states she expects to be discharged Saturday and plans to follow up with her antibiotics in the infusion center. She denies any n/v/f/c/sob/cp. Objective - Vital Signs/Intake and Output Vital Signs (last 24 hours): Temp Pulse Resp BP Pulse Ox 97.6 F 45 L 18 132/85 98 03/29/17 07:45 03/29/17 07:45 03/29/17 07:45 03/29/17 07:45 03/29/17 07:45 - Medications Medications: Current Medications Acetaminophen (Tylenol 325mg Tab) 650 mg PO Q6H PRN PRN Reason: Pain, Mild (1-3) Last Admin: 03/28/17 22:11 Dose: 650 mg Albuterol (Ventolin Hfa 90 Mcg/Actuation (8 G)) 2 puff IH RQ4 PRN PRN Reason: Shortness of Breath Last Admin: 03/29/17 11:18 Dose: 2 puff Diphenhydramine HCl (Benadryl) 25 mg PO Q12 PRN PRN Reason: Itching / Pruritus Last Admin: 03/28/17 19:13 Dose: 25 mg Docusate Sodium (Colace) 100 mg PO BID [facility] Last Admin: 03/29/17 10:08 Dose: 100 mg Enoxaparin Sodium (Lovenox) 40 mg SC DAILY [facility] Last Admin: 03/29/17 10:09 Dose: 40 mg Guaifenesin/Dextromethorphan (Robitussin Dm) 10 ml PO Q4H PRN PRN Reason: Cough and congestion Last Admin: 03/28/17 18:43 Dose: 10 ml Hydrochlorothiazide (Hydrodiuril) 25 mg PO DAILY [facility] Last Admin: 03/29/17 10:09 Dose: 25 mg Vancomycin/Sodium Chloride (Vancocin) 1 gm in 200 mls @ 133.333 mls/hr IVPB Q12H [facility] Stop: 04/01/17 13:31 Last Admin: 03/29/17 12:49 Dose: 133.333 mls/hr Ketorolac Tromethamine (Toradol) 30 mg IVP Q6 PRN PRN Reason: Pain, severe (8-10) Last Admin: 03/29/17 05:46 Dose: 30 mg Levothyroxine Sodium (Synthroid) 50 mcg PO DAILY@0630 [facility] Last Admin: 03/29/17 05:37 Dose: 50 mcg Lisinopril (Zestril) 10 mg PO DAILY [facility] Last Admin: 03/29/17 10:08 Dose: 10 mg Montelukast Sodium (Singulair) 10 mg PO HS [facility] Last Admin: 03/28/17 22:09 Dose: 10 mg Morphine Sulfate (Morphine) 1 mg IVP Q4 PRN PRN Reason: Pain, severe (8-10) Last Admin: 03/28/17 09:53 Dose: 1 mg Multivitamins (Hexavitamin) 1 tab PO DAILY [facility] Last Admin: 03/29/17 10:09 Dose: 1 tab Pantoprazole Sodium (Protonix Ec Tab) 40 mg PO DAILY [facility] Last Admin: 03/29/17 10:08 Dose: 40 mg Rosuvastatin Calcium (Crestor) 5 mg PO HS [facility] Last Admin: 03/28/17 22:09 Dose: 5 mg Fluticasone/Salmeterol (Advair Diskus 500/50) 1 puff INH RQ12 [facility] Last Admin: 03/29/17 10:11 Dose: 1 puff - Labs Labs: 03/29/17 06:19 03/29/17 06:19 PT 12.4 SECONDS (9.7-12.2) H 03/19/17 19:53 INR 1.1 03/19/17 19:53 APTT 51 SECONDS (21-34) H D 03/21/17 17:17 - Constitutional Appears: Well, Non-toxic, No Acute Distress - Extremities Exam Additional comments: Right lower extremity focused exam: Vasc: DP and PT pulses palpable 1/4. Skin temperature warm to cool from proximal to distal. CFT < 3 sec x 5. Mild non-pitting edema noted to dorsum of R foot. Decreased edema noted to right 2nd digit. Neuro: Protective sensation grossly intact Ortho: Tenderness on palpation noted to the right 2nd digit Derm: No open lesions, no drainage,no erythema, no clinical signs of infection. Right 2nd digit skin is slightly discolored dark- continually improving. - Neurological Exam Neurological Exam: Alert, Awake, Oriented x3 - Psychiatric Exam Psychiatric exam: Normal Affect, Normal Mood Assessment and Plan - Assessment and Plan (Free Text) Assessment: 71 year old female 9 weeks status post right 2nd digit hammertoe correction with right 2nd digit pain Plan: Patient examined and evaluated Discussed plan in detail with Dr. Grace Chart, labs, vitals reviewed - afebrile, WBC 7.9 No dressing needed continue pain medication per primary continue IV abx per primary Upon D/C patient to follow up in podiatry clinic podiatry will continue to follow patient while in house
[2017-03-29] MEDS: guaiFENesin DM 200 mg-20 mg/10 ml UD PO PRN (17:53)
--- NOTE | 2017-03-30 00:08 | CP.PCM.PN ---
<Minesh Robbins - Last Filed: 03/30/17 06:09> Subjective - Date & Time of Evaluation Date of Evaluation: 03/30/17 Time of Evaluation: 06:00 - Subjective Subjective: PGY1 progress note for Dr. Esquivel Patient seen and examined at bedside. Patient reports generalized pain and itchiness in the right lower extremity. Patient denies other acute complaints at this time. Objective - Vital Signs/Intake and Output Vital Signs (last 24 hours): Temp Pulse Resp BP Pulse Ox 98.1 F 59 L 20 106/59 L 98 03/29/17 15:31 03/29/17 15:31 03/29/17 15:31 03/29/17 15:31 03/29/17 15:31 Intake and Output: 03/29/17 03/30/17 18:59 06:59 Intake Total 700 350 Balance 700 350 - Medications Medications: Current Medications Acetaminophen (Tylenol 325mg Tab) 650 mg PO Q6H PRN PRN Reason: Pain, Mild (1-3) Last Admin: 03/28/17 22:11 Dose: 650 mg Albuterol (Ventolin Hfa 90 Mcg/Actuation (8 G)) 2 puff IH RQ4 PRN PRN Reason: Shortness of Breath Last Admin: 03/29/17 11:18 Dose: 2 puff Diphenhydramine HCl (Benadryl) 25 mg PO Q12 PRN PRN Reason: Itching / Pruritus Last Admin: 03/29/17 22:47 Dose: 25 mg Docusate Sodium (Colace) 100 mg PO BID [facility] Last Admin: 03/29/17 17:53 Dose: 100 mg Enoxaparin Sodium (Lovenox) 40 mg SC DAILY [facility] Last Admin: 03/29/17 10:09 Dose: 40 mg Guaifenesin/Dextromethorphan (Robitussin Dm) 10 ml PO Q4H PRN PRN Reason: Cough and congestion Last Admin: 03/29/17 17:53 Dose: 10 ml Hydrochlorothiazide (Hydrodiuril) 25 mg PO DAILY [facility] Last Admin: 03/29/17 10:09 Dose: 25 mg Vancomycin/Sodium Chloride (Vancocin) 1 gm in 200 mls @ 133.333 mls/hr IVPB Q12H [facility] Stop: 04/01/17 13:31 Last Admin: 03/29/17 12:49 Dose: 133.333 mls/hr Ketorolac Tromethamine (Toradol) 30 mg IVP Q6 PRN PRN Reason: Pain, severe (8-10) Last Admin: 03/29/17 18:53 Dose: 30 mg Levothyroxine Sodium (Synthroid) 50 mcg PO DAILY@0630 [facility] Last Admin: 03/29/17 05:37 Dose: 50 mcg Lisinopril (Zestril) 10 mg PO DAILY [facility] Last Admin: 03/29/17 10:08 Dose: 10 mg Montelukast Sodium (Singulair) 10 mg PO HS [facility] Last Admin: 03/29/17 22:47 Dose: 10 mg Multivitamins (Hexavitamin) 1 tab PO DAILY [facility] Last Admin: 03/29/17 10:09 Dose: 1 tab Pantoprazole Sodium (Protonix Ec Tab) 40 mg PO DAILY [facility] Last Admin: 03/29/17 10:08 Dose: 40 mg Rosuvastatin Calcium (Crestor) 5 mg PO HS [facility] Last Admin: 03/29/17 22:47 Dose: 5 mg Fluticasone/Salmeterol (Advair Diskus 500/50) 1 puff INH RQ12 [facility] Last Admin: 03/29/17 20:24 Dose: 1 puff - Labs Labs: 03/29/17 06:19 03/29/17 06:19 PT 12.4 SECONDS (9.7-12.2) H 03/19/17 19:53 INR 1.1 03/19/17 19:53 APTT 51 SECONDS (21-34) H D 03/21/17 17:17 - Constitutional Appears: No Acute Distress - Head Exam Head Exam: ATRAUMATIC, NORMAL INSPECTION, NORMOCEPHALIC - Eye Exam Eye Exam: EOMI, PERRL - ENT Exam ENT Exam: Mucous Membranes Moist - Respiratory Exam Respiratory Exam: Clear to Ausculation Bilateral, NORMAL BREATHING PATTERN - Cardiovascular Exam Cardiovascular Exam: REGULAR RHYTHM, +S1, +S2 - GI/Abdominal Exam GI & Abdominal Exam: Soft, Normal Bowel Sounds. absent: Tenderness - Extremities Exam Extremities Exam: Normal Capillary Refill. absent: Pedal Edema, Tenderness Additional comments: Discoloration of 2nd and 3rd digit on right foot is improving. Patient tender to palpation on the 2nd digit only. - Neurological Exam Neurological Exam: Alert, Awake, Oriented x3 - Psychiatric Exam Psychiatric exam: Normal Affect, Normal Mood - Skin Skin Exam: Dry, Intact, Normal Color, Warm Assessment and Plan - Assessment and Plan (Free Text) Plan: Right foot pain s/p 2nd digit arthroplasty with K wire fixation 01/21/2017 Consulted Vascular Surgery - Dr. Lay - acute vascular compromise to extremities unlikely CTA 03/19 - unremarkable, no evidence of peripheral disease. Consulted Podiatry - Dr. Grace - help appreciated Consulted ID - Dr. Alcala - help appreciated Heparin Drip was started 03/19/17 Vanco 1g IV Q12H - Spoke with Dr. Cartwright, will keep patient in hospital until saturday04/01/17 on same regiment. Will re-eval next week for possible adjustment of abx to allow for out pt follow up. Morphine 1mg IVP Q4H PRN PICC line placed 03/23/17 HTN Lisinopril 10mg daily, HCTZ 25mg PO daily A1c 5.8 TSH 1.86 lipid panel -WNL Hypothyroid Synthroid 50mcg daily HLD Crestor 10mg daily Asthma Singular 10mg daily Advair Diskus 500-50mcg/dose 1 puff daily Ventolin HFA 108 (90 base) mcg/act 2 puffs Q4H PRN Polyarthritis Celebrex 100mg daily Prophylactic Care Heparin Drip discontinued. Started on Lovenox 40mg SC daily Pepcid 20mg daily Tylenol 650mg Q6H for headaches Patient staying in hospital for now to receive IV abx. Awaiting re-evaluation by ID to adjust abx regiment to allow for out pt treatment. Patient will be re- evaluated on Sunday 04/01. No new update as of yet. <Jv Esquivel - Last Filed: 03/30/17 08:21> Objective - Vital Signs/Intake and Output Vital Signs (last 24 hours): Temp Pulse Resp BP Pulse Ox 97.8 F 73 20 107/71 98 03/29/17 23:35 03/29/17 23:35 03/29/17 23:35 03/29/17 23:35 03/29/17 23:35 Intake and Output: 03/30/17 03/30/17 06:59 18:59 Intake Total 350 Balance 350 - Medications Medications: Current Medications Acetaminophen (Tylenol 325mg Tab) 650 mg PO Q6H PRN PRN Reason: Pain, Mild (1-3) Last Admin: 03/30/17 03:40 Dose: 650 mg Albuterol (Ventolin Hfa 90 Mcg/Actuation (8 G)) 2 puff IH RQ4 PRN PRN Reason: Shortness of Breath Last Admin: 03/30/17 07:36 Dose: 2 puff Diphenhydramine HCl (Benadryl) 25 mg PO Q12 PRN PRN Reason: Itching / Pruritus Last Admin: 03/29/17 22:47 Dose: 25 mg Docusate Sodium (Colace) 100 mg PO BID [facility] Last Admin: 03/29/17 17:53 Dose: 100 mg Enoxaparin Sodium (Lovenox) 40 mg SC DAILY [facility] Last Admin: 03/29/17 10:09 Dose: 40 mg Guaifenesin/Dextromethorphan (Robitussin Dm) 10 ml PO Q4H PRN PRN Reason: Cough and congestion Last Admin: 03/29/17 17:53 Dose: 10 ml Hydrochlorothiazide (Hydrodiuril) 25 mg PO DAILY [facility] Last Admin: 03/29/17 10:09 Dose: 25 mg Vancomycin/Sodium Chloride (Vancocin) 1 gm in 200 mls @ 133.333 mls/hr IVPB Q12H [facility] Stop: 04/01/17 13:31 Last Admin: 03/30/17 01:28 Dose: 133.333 mls/hr Ketorolac Tromethamine (Toradol) 30 mg IVP Q6 PRN PRN Reason: Pain, severe (8-10) Last Admin: 03/30/17 01:27 Dose: 30 mg Levothyroxine Sodium (Synthroid) 50 mcg PO DAILY@0630 [facility] Last Admin: 03/30/17 05:56 Dose: 50 mcg Lisinopril (Zestril) 10 mg PO DAILY [facility] Last Admin: 03/29/17 10:08 Dose: 10 mg Montelukast Sodium (Singulair) 10 mg PO HS [facility] Last Admin: 03/29/17 22:47 Dose: 10 mg Multivitamins (Hexavitamin) 1 tab PO DAILY [facility] Last Admin: 03/29/17 10:09 Dose: 1 tab Pantoprazole Sodium (Protonix Ec Tab) 40 mg PO DAILY [facility] Last Admin: 03/29/17 10:08 Dose: 40 mg Rosuvastatin Calcium (Crestor) 5 mg PO HS [facility] Last Admin: 03/29/17 22:47 Dose: 5 mg Fluticasone/Salmeterol (Advair Diskus 500/50) 1 puff INH RQ12 [facility] Last Admin: 03/30/17 07:35 Dose: 1 puff - Labs Labs: 03/30/17 06:07 03/30/17 06:07 PT 12.4 SECONDS (9.7-12.2) H 03/19/17 19:53 INR 1.1 03/19/17 19:53 APTT 51 SECONDS (21-34) H D 03/21/17 17:17 Attending/Attestation - Attestation I have personally seen and examined this patient.: Yes I have fully participated in the care of the patient.: Yes I have reviewed all pertinent clinical information, including history, physical exam and plan: Yes Notes (Text): 03/30/17 08:19 Medical Attending: Patient was seen and examined by me. Agree with the above note by the resident. The patient reported this morning is ok however has had a lot of pain overnight. Added on Toradol IV for more pain control. Again appettie is poor - she will only eat select things they bring her. Hopefully can be DC this Saturday, patient is eager to go home. thank you Jv Esquivel
[2017-03-30] MEDS: Vancomycin 1 gm/NS 200 ml 1 GM/200 ML BAG IVPB SCH ×2 (01:28→12:33)
[2017-03-30] MEDS: Levothyroxine 50 MCG TAB PO SCH (05:56)
[2017-03-30 06:22] LABS: BASO # 0.1 K/uL (0.0-0.2); BASO % 0.9 % (0.0-2.0); EOS # 0.2 K/uL (0.0-0.7); EOS % 2.6 % (0.0-4.0); HEMATOCRIT 32.1 % (34.0-47.0); LYMPH # 3.2 K/uL (1.0-4.3); LYMPH % 37.3 % (20.0-40.0); MEAN CELL VOLUME 86.2 fL (81.0-99.0); MEAN CORPUSCULAR HEMOGLOBIN 29.3 pg (27.0-31.0); MEAN CORPUSCULAR HGB CONC 34.1 g/dL (33.0-37.0); MEAN PLATELET VOLUME 8.9 fL (7.2-11.7); MONO # 0.9 K/uL (0.0-0.8); MONO % 10.3 % (0.0-10.0); RED CELL DISTRIBUTION WIDTH 13.4 % (11.5-14.5); WHITE BLOOD COUNT 8.5 K/uL (4.8-10.8)
[2017-03-30 06:26] LABS: CHLORIDE 100 mmol/L (98-107); SODIUM 134 mmol/L (132-148)
[2017-03-30 06:27] LABS: POTASSIUM 3.8 mmol/L (3.6-5.2)
[2017-03-30 06:29] LABS: ALB/GLOB RATIO 1.1 (1.0-2.1); ALKALINE PHOSPHATASE 50 U/L (38-126); ALT/SGPT 32 U/L (9-52); AST/SGOT 22 U/L (14-36); BILIRUBIN,TOTAL 0.4 mg/dL (0.2-1.3); BLOOD UREA NITROGEN 19 mg/dL (7-17); CARBON DIOXIDE 26 mmol/L (22-30); GFR AFRICAN-AMERICAN > 60; GLUCOSE,RANDOM 96 mg/dL (65-105); TOTAL PROTEIN 5.9 g/dL (6.3-8.3)
[2017-03-30 06:30] LABS: CALCIUM 8.1 mg/dl (8.6-10.4)
[2017-03-30] MEDS: Fluticasone-Salmeterol 500-50mcg Diskus INH SCH ×2 (07:35→19:49)
[2017-03-30] MEDS: Albuterol HFA 90 mcg/actuation (8 g) IH PRN ×3 (07:36→19:50)
[2017-03-30] MEDS: Pantoprazole 40 mg EC Tab PO SCH (09:56)
[2017-03-30] MEDS: Multiple Vitamins Tab PO SCH (09:56)
[2017-03-30] MEDS: Enoxaparin 40 mg Syringe SC SCH (09:57)
[2017-03-30] MEDS: guaiFENesin DM 200 mg-20 mg/10 ml UD PO PRN (13:55)
--- NOTE | 2017-03-30 16:08 | CP.PCM.PN ---
Subjective - Date & Time of Evaluation Date of Evaluation: 03/30/17 Time of Evaluation: 08:30 - Subjective Subjective: Podiatry progress note for Dr. Grace 71 year old female was seen at bedside regarding right second digit pain. Patient appears to be resting comfortably in her bed. Patient in NAD, AAOx3. Patient states that the swelling of her toe has gone down more and she has less pain than yesterday. Patient states it is still painful to touch the toe but she is seeing an improvement overall. Patient states she expects to be discharged Saturday and plans to follow up with her antibiotics in the infusion center. She denies any F/N/V/C/SOB/CP today. Patient denies of any other pedal complains at this time. Objective - Vital Signs/Intake and Output Vital Signs (last 24 hours): Temp Pulse Resp BP Pulse Ox 98.2 F 69 18 109/59 L 96 03/30/17 07:10 03/30/17 07:10 03/30/17 07:10 03/30/17 07:10 03/30/17 07:10 Intake and Output: 03/30/17 03/30/17 06:59 18:59 Intake Total 350 Balance 350 - Medications Medications: Current Medications Acetaminophen (Tylenol 325mg Tab) 650 mg PO Q6H PRN PRN Reason: Pain, Mild (1-3) Last Admin: 03/30/17 03:40 Dose: 650 mg Albuterol (Ventolin Hfa 90 Mcg/Actuation (8 G)) 2 puff IH RQ4 PRN PRN Reason: Shortness of Breath Last Admin: 03/30/17 11:20 Dose: 2 puff Diphenhydramine HCl (Benadryl) 25 mg PO Q12 PRN PRN Reason: Itching / Pruritus Last Admin: 03/29/17 22:47 Dose: 25 mg Docusate Sodium (Colace) 100 mg PO BID [facility] Last Admin: 03/30/17 09:56 Dose: 100 mg Enoxaparin Sodium (Lovenox) 40 mg SC DAILY [facility] Last Admin: 03/30/17 09:57 Dose: 40 mg Guaifenesin/Dextromethorphan (Robitussin Dm) 10 ml PO Q4H PRN PRN Reason: Cough and congestion Last Admin: 03/30/17 13:55 Dose: 10 ml Hydrochlorothiazide (Hydrodiuril) 25 mg PO DAILY [facility] Last Admin: 03/30/17 09:56 Dose: 25 mg Vancomycin/Sodium Chloride (Vancocin) 1 gm in 200 mls @ 133.333 mls/hr IVPB Q12H [facility] Stop: 04/01/17 13:31 Last Admin: 03/30/17 12:33 Dose: 133.333 mls/hr Ketorolac Tromethamine (Toradol) 30 mg IVP Q6 PRN PRN Reason: Pain, severe (8-10) Last Admin: 03/30/17 01:27 Dose: 30 mg Levothyroxine Sodium (Synthroid) 50 mcg PO DAILY@0630 [facility] Last Admin: 03/30/17 05:56 Dose: 50 mcg Lisinopril (Zestril) 10 mg PO DAILY [facility] Last Admin: 03/30/17 09:56 Dose: 10 mg Montelukast Sodium (Singulair) 10 mg PO HS [facility] Last Admin: 03/29/17 22:47 Dose: 10 mg Morphine Sulfate (Morphine) 2 mg IVP Q4 PRN PRN Reason: Pain, moderate (4-7) Last Admin: 03/30/17 10:02 Dose: 2 mg Multivitamins (Hexavitamin) 1 tab PO DAILY [facility] Last Admin: 03/30/17 09:56 Dose: 1 tab Pantoprazole Sodium (Protonix Ec Tab) 40 mg PO DAILY [facility] Last Admin: 03/30/17 09:56 Dose: 40 mg Rosuvastatin Calcium (Crestor) 5 mg PO HS [facility] Last Admin: 03/29/17 22:47 Dose: 5 mg Fluticasone/Salmeterol (Advair Diskus 500/50) 1 puff INH RQ12 [facility] Last Admin: 03/30/17 07:35 Dose: 1 puff - Labs Labs: 03/30/17 06:07 03/30/17 06:07 PT 12.4 SECONDS (9.7-12.2) H 03/19/17 19:53 INR 1.1 03/19/17 19:53 APTT 51 SECONDS (21-34) H D 03/21/17 17:17 - Constitutional Appears: Well, Non-toxic, No Acute Distress - Extremities Exam Additional comments: Right lower extremity focused exam: Vasc: DP and PT pulses palpable 1/4. Skin temperature warm to cool from proximal to distal. CFT < 3 sec x 5. Mild non-pitting edema noted to dorsum of R foot. Decreased edema noted to right 2nd digit. Derm: No open lesions, no drainage,no erythema, no clinical signs of infection. Right 2nd digit skin is slightly discolored dark- continually improving. Neuro: Protective sensation grossly intact Ortho: Tenderness on palpation noted to the right 2nd digit - Neurological Exam Neurological Exam: Alert, Awake, Oriented x3 - Psychiatric Exam Psychiatric exam: Normal Affect, Normal Mood Assessment and Plan - Assessment and Plan (Free Text) Assessment: 71 year old female 9 weeks status post right 2nd digit hammertoe correction with right 2nd digit pain Plan: Patient examined and evaluated Discussed plan in detail with Dr. Grace Chart, labs, vitals reviewed - afebrile, WBC 8.5 No dressing needed continue pain medication per primary continue IV abx per primary Upon D/C patient to follow up in podiatry clinic podiatry will continue to follow patient while in house
[2017-03-31] MEDS: Vancomycin 1 gm/NS 200 ml 1 GM/200 ML BAG IVPB SCH ×2 (00:35→15:26)
[2017-03-31] MEDS: Levothyroxine 50 MCG TAB PO SCH (05:40)
--- NOTE | 2017-03-31 06:32 | CP.PCM.PN ---
<Minesh Robbins - Last Filed: 03/31/17 06:29> Subjective - Date & Time of Evaluation Date of Evaluation: 03/31/17 Time of Evaluation: 05:50 - Subjective Subjective: PGY1 progress note for Dr. Esquivel Patient seen and examined at bedside. Patient reports improvement in pain in the right lower extremity but states that it is roll tender at times. Patient denies other acute complaints at this time. Objective - Vital Signs/Intake and Output Vital Signs (last 24 hours): Temp Pulse Resp BP Pulse Ox 98.7 F 74 20 104/69 98 03/30/17 23:33 03/30/17 23:33 03/30/17 23:33 03/30/17 23:33 03/30/17 23:33 Intake and Output: 03/30/17 03/31/17 18:59 06:59 Intake Total 300 Balance 300 - Medications Medications: Current Medications Acetaminophen (Tylenol 325mg Tab) 650 mg PO Q6H PRN PRN Reason: Pain, Mild (1-3) Last Admin: 03/30/17 03:40 Dose: 650 mg Albuterol (Ventolin Hfa 90 Mcg/Actuation (8 G)) 2 puff IH RQ4 PRN PRN Reason: Shortness of Breath Last Admin: 03/30/17 19:50 Dose: 2 puff Diphenhydramine HCl (Benadryl) 25 mg PO Q12 PRN PRN Reason: Itching / Pruritus Last Admin: 03/30/17 23:10 Dose: 25 mg Docusate Sodium (Colace) 100 mg PO BID [facility] Last Admin: 03/30/17 17:51 Dose: 100 mg Enoxaparin Sodium (Lovenox) 40 mg SC DAILY [facility] Last Admin: 03/30/17 09:57 Dose: 40 mg Guaifenesin/Dextromethorphan (Robitussin Dm) 10 ml PO Q4H PRN PRN Reason: Cough and congestion Last Admin: 03/30/17 13:55 Dose: 10 ml Hydrochlorothiazide (Hydrodiuril) 25 mg PO DAILY [facility] Last Admin: 03/30/17 09:56 Dose: 25 mg Vancomycin/Sodium Chloride (Vancocin) 1 gm in 200 mls @ 133.333 mls/hr IVPB Q12H [facility] Stop: 04/01/17 13:31 Last Admin: 03/31/17 00:35 Dose: 133.333 mls/hr Ketorolac Tromethamine (Toradol) 30 mg IVP Q6 PRN PRN Reason: Pain, severe (8-10) Last Admin: 03/30/17 23:01 Dose: 30 mg Levothyroxine Sodium (Synthroid) 50 mcg PO DAILY@0630 [facility] Last Admin: 03/31/17 05:40 Dose: 50 mcg Lisinopril (Zestril) 10 mg PO DAILY [facility] Last Admin: 03/30/17 09:56 Dose: 10 mg Montelukast Sodium (Singulair) 10 mg PO HS [facility] Last Admin: 03/30/17 23:01 Dose: 10 mg Morphine Sulfate (Morphine) 2 mg IVP Q4 PRN PRN Reason: Pain, moderate (4-7) Last Admin: 03/30/17 10:02 Dose: 2 mg Multivitamins (Hexavitamin) 1 tab PO DAILY [facility] Last Admin: 03/30/17 09:56 Dose: 1 tab Pantoprazole Sodium (Protonix Ec Tab) 40 mg PO DAILY [facility] Last Admin: 03/30/17 09:56 Dose: 40 mg Rosuvastatin Calcium (Crestor) 5 mg PO HS [facility] Last Admin: 03/30/17 23:01 Dose: 5 mg Fluticasone/Salmeterol (Advair Diskus 500/50) 1 puff INH RQ12 [facility] Last Admin: 03/30/17 19:49 Dose: 1 puff - Labs Labs: 03/30/17 06:07 03/30/17 06:07 PT 12.4 SECONDS (9.7-12.2) H 03/19/17 19:53 INR 1.1 03/19/17 19:53 APTT 51 SECONDS (21-34) H D 03/21/17 17:17 - Constitutional Appears: No Acute Distress - Head Exam Head Exam: ATRAUMATIC, NORMAL INSPECTION, NORMOCEPHALIC - Eye Exam Eye Exam: EOMI, PERRL - ENT Exam ENT Exam: Mucous Membranes Moist - Respiratory Exam Respiratory Exam: Clear to Ausculation Bilateral, NORMAL BREATHING PATTERN - Cardiovascular Exam Cardiovascular Exam: REGULAR RHYTHM, +S1, +S2 - GI/Abdominal Exam GI & Abdominal Exam: Soft, Normal Bowel Sounds. absent: Tenderness - Extremities Exam Additional comments: Discoloration of 2nd and 3rd digit on right foot is improving. Patient tender to palpation on the 2nd digit. - Neurological Exam Neurological Exam: Alert, Awake, Oriented x3 - Psychiatric Exam Psychiatric exam: Normal Affect, Normal Mood - Skin Skin Exam: Dry, Intact, Normal Color, Warm Assessment and Plan - Assessment and Plan (Free Text) Plan: Right foot pain s/p 2nd digit arthroplasty with K wire fixation 01/21/2017 Consulted Vascular Surgery - Dr. Lay - acute vascular compromise to extremities unlikely CTA 03/19 - unremarkable, no evidence of peripheral disease. Consulted Podiatry - Dr. Grace - help appreciated Consulted ID - Dr. Alcala - help appreciated Heparin Drip was started 03/19/17 Vanco 1g IV Q12H - Spoke with Dr. Cartwright, will keep patient in hospital until saturday04/01/17 on same regiment. Will re-eval next week for possible adjustment of abx to allow for out pt follow up. Morphine 1mg IVP Q4H PRN PICC line placed 03/23/17 HTN Lisinopril 10mg daily, HCTZ 25mg PO daily A1c 5.8 TSH 1.86 lipid panel -WNL Hypothyroid Synthroid 50mcg daily HLD Crestor 10mg daily Asthma Singular 10mg daily Advair Diskus 500-50mcg/dose 1 puff daily Ventolin HFA 108 (90 base) mcg/act 2 puffs Q4H PRN Polyarthritis Celebrex 100mg daily Prophylactic Care Heparin Drip discontinued. Started on Lovenox 40mg SC daily Pepcid 20mg daily Tylenol 650mg Q6H for headaches Patient staying in hospital for now to receive IV abx. Awaiting re-evaluation by ID to adjust abx regiment to allow for out pt treatment. Patient will be re- evaluated on Sunday 04/01. No new update for now. <Jv Esquivel - Last Filed: 03/31/17 09:32> Objective - Vital Signs/Intake and Output Vital Signs (last 24 hours): Temp Pulse Resp BP Pulse Ox 98.6 F 67 18 116/72 99 03/31/17 07:10 03/31/17 07:10 03/31/17 07:10 03/31/17 07:10 03/31/17 07:10 Intake and Output: 03/31/17 03/31/17 06:59 18:59 Intake Total 300 Balance 300 - Medications Medications: Current Medications Acetaminophen (Tylenol 325mg Tab) 650 mg PO Q6H PRN PRN Reason: Pain, Mild (1-3) Last Admin: 03/30/17 03:40 Dose: 650 mg Albuterol (Ventolin Hfa 90 Mcg/Actuation (8 G)) 2 puff IH RQ4 PRN PRN Reason: Shortness of Breath Last Admin: 03/31/17 07:41 Dose: 2 puff Diphenhydramine HCl (Benadryl) 25 mg PO Q12 PRN PRN Reason: Itching / Pruritus Last Admin: 03/30/17 23:10 Dose: 25 mg Docusate Sodium (Colace) 100 mg PO BID [facility] Last Admin: 03/30/17 17:51 Dose: 100 mg Enoxaparin Sodium (Lovenox) 40 mg SC DAILY [facility] Last Admin: 03/30/17 09:57 Dose: 40 mg Guaifenesin/Dextromethorphan (Robitussin Dm) 10 ml PO Q4H PRN PRN Reason: Cough and congestion Last Admin: 03/30/17 13:55 Dose: 10 ml Hydrochlorothiazide (Hydrodiuril) 25 mg PO DAILY [facility] Last Admin: 03/30/17 09:56 Dose: 25 mg Vancomycin/Sodium Chloride (Vancocin) 1 gm in 200 mls @ 133.333 mls/hr IVPB Q12H [facility] Stop: 04/01/17 13:31 Last Admin: 03/31/17 00:35 Dose: 133.333 mls/hr Ketorolac Tromethamine (Toradol) 30 mg IVP Q6 PRN PRN Reason: Pain, severe (8-10) Last Admin: 03/30/17 23:01 Dose: 30 mg Levothyroxine Sodium (Synthroid) 50 mcg PO DAILY@0630 [facility] Last Admin: 03/31/17 05:40 Dose: 50 mcg Lisinopril (Zestril) 10 mg PO DAILY [facility] Last Admin: 03/30/17 09:56 Dose: 10 mg Montelukast Sodium (Singulair) 10 mg PO HS [facility] Last Admin: 03/30/17 23:01 Dose: 10 mg Morphine Sulfate (Morphine) 2 mg IVP Q4 PRN PRN Reason: Pain, moderate (4-7) Last Admin: 03/30/17 10:02 Dose: 2 mg Multivitamins (Hexavitamin) 1 tab PO DAILY [facility] Last Admin: 03/30/17 09:56 Dose: 1 tab Pantoprazole Sodium (Protonix Ec Tab) 40 mg PO DAILY [facility] Last Admin: 03/30/17 09:56 Dose: 40 mg Rosuvastatin Calcium (Crestor) 5 mg PO HS [facility] Last Admin: 03/30/17 23:01 Dose: 5 mg Fluticasone/Salmeterol (Advair Diskus 500/50) 1 puff INH RQ12 [facility] Last Admin: 03/31/17 07:41 Dose: 1 puff - Labs Labs: 03/31/17 07:08 03/31/17 07:08 PT 12.4 SECONDS (9.7-12.2) H 03/19/17 19:53 INR 1.1 03/19/17 19:53 APTT 51 SECONDS (21-34) H D 03/21/17 17:17 Attending/Attestation - Attestation I have personally seen and examined this patient.: Yes I have fully participated in the care of the patient.: Yes I have reviewed all pertinent clinical information, including history, physical exam and plan: Yes Notes (Text): Medical attending: Patient was seen and examined by me. Agree with the above note by the resident The patient was again ambulating in the room. As before she still reports pain of the toe area. Again diet has remained very poor - she states she does not like the food. At this time she remains on IV abx. Hopefully tomorrow can be DC to home and come back for once a day IV infusions. thank you Jv Esquivel
[2017-03-31 07:15] LABS: BASO # 0.1 K/uL (0.0-0.2); BASO % 0.8 % (0.0-2.0); EOS # 0.2 K/uL (0.0-0.7); EOS % 1.8 % (0.0-4.0); HEMATOCRIT 33.2 % (34.0-47.0); LYMPH # 3.1 K/uL (1.0-4.3); LYMPH % 35.7 % (20.0-40.0); MEAN CELL VOLUME 87.2 fL (81.0-99.0); MEAN CORPUSCULAR HEMOGLOBIN 29.1 pg (27.0-31.0); MEAN CORPUSCULAR HGB CONC 33.3 g/dL (33.0-37.0); MEAN PLATELET VOLUME 9.4 fL (7.2-11.7); MONO # 0.9 K/uL (0.0-0.8); MONO % 10.7 % (0.0-10.0); RED CELL DISTRIBUTION WIDTH 13.3 % (11.5-14.5); WHITE BLOOD COUNT 8.7 K/uL (4.8-10.8)
[2017-03-31 07:30] LABS: CHLORIDE 99 mmol/L (98-107); POTASSIUM 3.8 mmol/L (3.6-5.2); SODIUM 135 mmol/L (132-148)
[2017-03-31 07:32] LABS: AST/SGOT 24 U/L (14-36); BILIRUBIN,TOTAL 0.5 mg/dL (0.2-1.3); CARBON DIOXIDE 24 mmol/L (22-30); GFR AFRICAN-AMERICAN > 60
[2017-03-31 07:33] LABS: ALB/GLOB RATIO 1.1 (1.0-2.1); ALKALINE PHOSPHATASE 58 U/L (38-126); ALT/SGPT 34 U/L (9-52); BLOOD UREA NITROGEN 13 mg/dL (7-17); GLUCOSE,RANDOM 88 mg/dL (65-105); TOTAL PROTEIN 6.3 g/dL (6.3-8.3)
[2017-03-31 07:34] LABS: CALCIUM 8.5 mg/dl (8.6-10.4)
[2017-03-31] MEDS: Fluticasone-Salmeterol 500-50mcg Diskus INH SCH ×2 (07:41→20:04)
[2017-03-31] MEDS: Albuterol HFA 90 mcg/actuation (8 g) IH PRN ×2 (07:41→11:00)
[2017-03-31] MEDS: Multiple Vitamins Tab PO SCH (09:39)
[2017-03-31] MEDS: Enoxaparin 40 mg Syringe SC SCH (09:39)
[2017-03-31] MEDS: Pantoprazole 40 mg EC Tab PO SCH (09:40)
[2017-03-31] MEDS ORDERED: Clotrimazole 1% Cream(30 gm) TOP SCH (10:00)
--- NOTE | 2017-03-31 17:44 | CP.PCM.PN ---
Subjective - Date & Time of Evaluation Date of Evaluation: 03/31/17 Time of Evaluation: 09:00 - Subjective Subjective: Podiatry progress note for Dr. Grace 71 year old female was seen at bedside regarding right second digit pain. Patient appears to be resting comfortably in her bed. Patient in NAD, AAOx3. Patient states that the swelling of her toe has gone down more and she has less pain than yesterday. Patient states it is still painful to touch the toe but she is seeing an improvement overall. Patient states she expects to be discharged Saturday and plans to follow up with her antibiotics in the infusion center. Patient denies of any other pedal complains at this time. She denies any F/N/V/C/SOB/CP today. Objective - Vital Signs/Intake and Output Vital Signs (last 24 hours): Temp Pulse Resp BP Pulse Ox 98.1 F 72 20 130/80 99 03/31/17 15:19 03/31/17 15:19 03/31/17 15:19 03/31/17 15:19 03/31/17 15:19 Intake and Output: 03/31/17 03/31/17 06:59 18:59 Intake Total 300 480 Balance 300 480 - Medications Medications: Current Medications Acetaminophen (Tylenol 325mg Tab) 650 mg PO Q6H PRN PRN Reason: Pain, Mild (1-3) Last Admin: 03/31/17 14:37 Dose: 650 mg Albuterol (Ventolin Hfa 90 Mcg/Actuation (8 G)) 2 puff IH RQ4 PRN PRN Reason: Shortness of Breath Last Admin: 03/31/17 11:00 Dose: 2 puff Clotrimazole (Lotrimin 1%) 0 gm TOP BID [facility] Diphenhydramine HCl (Benadryl) 25 mg PO Q12 PRN PRN Reason: Itching / Pruritus Last Admin: 03/30/17 23:10 Dose: 25 mg Docusate Sodium (Colace) 100 mg PO BID [facility] Last Admin: 03/31/17 09:39 Dose: 100 mg Enoxaparin Sodium (Lovenox) 40 mg SC DAILY [facility] Last Admin: 03/31/17 09:39 Dose: 40 mg Guaifenesin/Dextromethorphan (Robitussin Dm) 10 ml PO Q4H PRN PRN Reason: Cough and congestion Last Admin: 03/30/17 13:55 Dose: 10 ml Hydrochlorothiazide (Hydrodiuril) 25 mg PO DAILY [facility] Last Admin: 03/31/17 09:40 Dose: 25 mg Vancomycin/Sodium Chloride (Vancocin) 1 gm in 200 mls @ 133.333 mls/hr IVPB Q12H [facility] Stop: 04/01/17 13:31 Last Admin: 03/31/17 15:26 Dose: 133.333 mls/hr Ketorolac Tromethamine (Toradol) 30 mg IVP Q6 PRN PRN Reason: Pain, severe (8-10) Last Admin: 03/31/17 09:40 Dose: 30 mg Levothyroxine Sodium (Synthroid) 50 mcg PO DAILY@0630 [facility] Last Admin: 03/31/17 05:40 Dose: 50 mcg Lisinopril (Zestril) 10 mg PO DAILY [facility] Last Admin: 03/31/17 09:40 Dose: 10 mg Montelukast Sodium (Singulair) 10 mg PO HS [facility] Last Admin: 03/30/17 23:01 Dose: 10 mg Morphine Sulfate (Morphine) 2 mg IVP Q4 PRN PRN Reason: Pain, moderate (4-7) Last Admin: 03/30/17 10:02 Dose: 2 mg Multivitamins (Hexavitamin) 1 tab PO DAILY [facility] Last Admin: 03/31/17 09:39 Dose: 1 tab Pantoprazole Sodium (Protonix Ec Tab) 40 mg PO DAILY [facility] Last Admin: 03/31/17 09:40 Dose: 40 mg Rosuvastatin Calcium (Crestor) 5 mg PO HS [facility] Last Admin: 03/30/17 23:01 Dose: 5 mg Fluticasone/Salmeterol (Advair Diskus 500/50) 1 puff INH RQ12 [facility] Last Admin: 03/31/17 07:41 Dose: 1 puff - Labs Labs: 03/31/17 07:08 03/31/17 07:08 PT 12.4 SECONDS (9.7-12.2) H 03/19/17 19:53 INR 1.1 03/19/17 19:53 APTT 51 SECONDS (21-34) H D 03/21/17 17:17 - Constitutional Appears: Well, Non-toxic, No Acute Distress - Extremities Exam Additional comments: Right lower extremity focused exam: Vasc: DP and PT pulses palpable 1/4. Skin temperature warm to cool from proximal to distal. CFT < 3 sec x 5. Mild non-pitting edema noted to dorsum of R foot. Decreased edema noted to right 2nd digit. Derm: No open lesions, no drainage,no erythema, no clinical signs of infection. Right 2nd digit skin is slightly discolored and hyperpigmented- improving. Neuro: Protective sensation grossly intact Ortho: Tenderness on palpation noted to the right 2nd digit - Neurological Exam Neurological Exam: Alert, Awake, Oriented x3 - Psychiatric Exam Psychiatric exam: Normal Affect, Normal Mood Assessment and Plan - Assessment and Plan (Free Text) Assessment: 71 year old female 10 weeks status post right 2nd digit hammertoe correction with right 2nd digit pain Plan: Patient examined and evaluated Discussed plan in detail with Dr. Grace Chart, labs, vitals reviewed - afebrile, WBC 8.7 No dressing needed continue pain medication per primary continue IV abx per primary Upon D/C patient to follow up in podiatry clinic podiatry will continue to follow patient while in house
[2017-03-31] MEDS: Clotrimazole 1% Cream(30 gm) TOP SCH (18:37)
[2017-04-01] MEDS: Vancomycin 1 gm/NS 200 ml 1 GM/200 ML BAG IVPB SCH ×2 (00:46→14:00)
[2017-04-01] MEDS ORDERED: Aluminum Hydroxide/Magnesium Hydroxide Susp (30 mL) PO ONE (01:26)
[2017-04-01] MEDS: guaiFENesin DM 200 mg-20 mg/10 ml UD PO PRN ×2 (02:06→22:39)
[2017-04-01] MEDS: Levothyroxine 50 MCG TAB PO SCH (05:57)
[2017-04-01 06:25] LABS: BASO # 0.1 K/uL (0.0-0.2); BASO % 0.6 % (0.0-2.0); EOS # 0.2 K/uL (0.0-0.7); EOS % 2.4 % (0.0-4.0); HEMATOCRIT 32.3 % (34.0-47.0); LYMPH # 3.1 K/uL (1.0-4.3); LYMPH % 31.4 % (20.0-40.0); MEAN CELL VOLUME 86.3 fL (81.0-99.0); MEAN CORPUSCULAR HGB CONC 33.6 g/dL (33.0-37.0); MEAN PLATELET VOLUME 9.2 fL (7.2-11.7); MONO # 1.1 K/uL (0.0-0.8); MONO % 11.2 % (0.0-10.0); RED CELL DISTRIBUTION WIDTH 13.2 % (11.5-14.5); WHITE BLOOD COUNT 9.9 K/uL (4.8-10.8)
[2017-04-01 06:48] LABS: ALKALINE PHOSPHATASE 51 U/L (38-126); ALT/SGPT 29 U/L (9-52); AST/SGOT 27 U/L (14-36); BILIRUBIN,TOTAL 0.3 mg/dL (0.2-1.3); BLOOD UREA NITROGEN 16 mg/dL (7-17); CALCIUM 8.6 mg/dl (8.6-10.4); CARBON DIOXIDE 27 mmol/L (22-30); CHLORIDE 100 mmol/L (98-107); GFR AFRICAN-AMERICAN > 60; GLUCOSE,RANDOM 89 mg/dL (65-105); POTASSIUM 3.8 mmol/L (3.6-5.2); SODIUM 135 mmol/L (132-148); TOTAL PROTEIN 5.9 g/dL (6.3-8.3)
[2017-04-01 06:50] LABS: ALB/GLOB RATIO 1.3 (1.0-2.1)
--- NOTE | 2017-04-01 08:26 | CP.PCM.PN ---
Subjective - Date & Time of Evaluation Date of Evaluation: 04/01/17 Time of Evaluation: 08:26 - Subjective Subjective: Podiatry progress note for Dr. Grace 71 year old female was seen at bedside regarding right second digit pain. Patient in NAD, AAOx3. Patient states that the swelling of her toe has gone down more and she has less pain than yesterday. Denies any n/v/f/c/sob/cp. Objective - Vital Signs/Intake and Output Vital Signs (last 24 hours): Temp Pulse Resp BP Pulse Ox 98.3 F 70 20 116/69 98 03/31/17 23:45 03/31/17 23:45 03/31/17 23:45 03/31/17 23:45 03/31/17 23:45 Intake and Output: 04/01/17 04/01/17 06:59 18:59 Intake Total 720 Balance 720 - Medications Medications: Current Medications Acetaminophen (Tylenol 325mg Tab) 650 mg PO Q6H PRN PRN Reason: Pain, Mild (1-3) Last Admin: 03/31/17 14:37 Dose: 650 mg Albuterol (Ventolin Hfa 90 Mcg/Actuation (8 G)) 2 puff IH RQ4 PRN PRN Reason: Shortness of Breath Last Admin: 03/31/17 11:00 Dose: 2 puff Clotrimazole (Lotrimin 1%) 0 gm TOP BID [facility] Last Admin: 03/31/17 18:37 Dose: 1 applic Diphenhydramine HCl (Benadryl) 25 mg PO Q12 PRN PRN Reason: Itching / Pruritus Last Admin: 03/31/17 22:45 Dose: 25 mg Docusate Sodium (Colace) 100 mg PO BID [facility] Last Admin: 03/31/17 18:30 Dose: 100 mg Enoxaparin Sodium (Lovenox) 40 mg SC DAILY [facility] Last Admin: 03/31/17 09:39 Dose: 40 mg Guaifenesin/Dextromethorphan (Robitussin Dm) 10 ml PO Q4H PRN PRN Reason: Cough and congestion Last Admin: 04/01/17 02:06 Dose: 10 ml Hydrochlorothiazide (Hydrodiuril) 25 mg PO DAILY [facility] Last Admin: 03/31/17 09:40 Dose: 25 mg Vancomycin/Sodium Chloride (Vancocin) 1 gm in 200 mls @ 133.333 mls/hr IVPB Q12H [facility] Stop: 04/01/17 13:31 Last Admin: 04/01/17 00:46 Dose: 133.333 mls/hr Ketorolac Tromethamine (Toradol) 30 mg IVP Q6 PRN PRN Reason: Pain, severe (8-10) Last Admin: 03/31/17 09:40 Dose: 30 mg Levothyroxine Sodium (Synthroid) 50 mcg PO DAILY@0630 [facility] Last Admin: 04/01/17 05:57 Dose: 50 mcg Lisinopril (Zestril) 10 mg PO DAILY [facility] Last Admin: 03/31/17 09:40 Dose: 10 mg Montelukast Sodium (Singulair) 10 mg PO HS [facility] Last Admin: 03/31/17 22:45 Dose: 10 mg Morphine Sulfate (Morphine) 2 mg IVP Q4 PRN PRN Reason: Pain, moderate (4-7) Last Admin: 04/01/17 01:18 Dose: 2 mg Multivitamins (Hexavitamin) 1 tab PO DAILY [facility] Last Admin: 03/31/17 09:39 Dose: 1 tab Pantoprazole Sodium (Protonix Ec Tab) 40 mg PO DAILY [facility] Last Admin: 03/31/17 09:40 Dose: 40 mg Rosuvastatin Calcium (Crestor) 5 mg PO HS [facility] Last Admin: 03/31/17 22:45 Dose: 5 mg Fluticasone/Salmeterol (Advair Diskus 500/50) 1 puff INH RQ12 [facility] Last Admin: 03/31/17 20:04 Dose: 1 puff - Labs Labs: 04/01/17 06:20 04/01/17 06:19 PT 12.4 SECONDS (9.7-12.2) H 03/19/17 19:53 INR 1.1 03/19/17 19:53 APTT 51 SECONDS (21-34) H D 03/21/17 17:17 - Constitutional Appears: Well, Non-toxic, No Acute Distress - Extremities Exam Additional comments: Right lower extremity focused exam: Vasc: DP and PT pulses palpable 1/4. Skin temperature warm to cool from proximal to distal. CFT < 3 sec x 5. Mild non-pitting edema noted to dorsum of R foot. Decreased edema noted to right 2nd digit. Derm: No open lesions, no drainage,no erythema, no clinical signs of infection. Right 2nd digit skin is slightly discolored and hyperpigmented- improving. Neuro: Protective sensation grossly intact Ortho: Tenderness on palpation noted to the right 2nd digit - Neurological Exam Neurological Exam: Alert, Awake, Oriented x3 - Psychiatric Exam Psychiatric exam: Normal Affect, Normal Mood Assessment and Plan - Assessment and Plan (Free Text) Assessment: 71 year old female 10 weeks status post right 2nd digit hammertoe correction with right 2nd digit pain Plan: Patient examined and evaluated Discussed plan in detail with Dr. Grace Chart, labs, vitals reviewed - afebrile, WBC 9.9 No dressing needed continue pain medication per primary continue IV abx per primary Upon D/C patient to follow up in podiatry clinic podiatry will continue to follow patient while in house
[2017-04-01] MEDS: Pantoprazole 40 mg EC Tab PO SCH (09:26)
[2017-04-01] MEDS: Enoxaparin 40 mg Syringe SC SCH (09:26)
[2017-04-01] MEDS: Multiple Vitamins Tab PO SCH (09:27)
[2017-04-01] MEDS: Fluticasone-Salmeterol 500-50mcg Diskus INH SCH ×2 (09:40→19:43)
[2017-04-01] MEDS: Clotrimazole 1% Cream(30 gm) TOP SCH ×2 (10:57→18:30)
[2017-04-01] MEDS ORDERED: Aluminum Hydroxide/Magnesium Hydroxide Susp (30 mL) PO PRN (11:34)
--- NOTE | 2017-04-01 14:23 | CP.PCM.PN ---
<Estefanía Argueta - Last Filed: 04/01/17 15:58> Subjective - Date & Time of Evaluation Date of Evaluation: 04/01/17 Time of Evaluation: 07:00 - Subjective Subjective: PGY-1 Medicine Note- Dr. Brennan's Service Patient seen and examined at bedside and in no acute distress. Patient complains of vaginal itching. Patient says her toe is feeling better but still hurts with movement or touch. Patient says she does not like the food and is having no appetite. Patient denies shortness of breath, chest pain, abdominal pain, nausea, vomiting, constipation, or diarrhea. Objective - Vital Signs/Intake and Output Vital Signs (last 24 hours): Temp Pulse Resp BP Pulse Ox 99.4 F 79 20 143/74 97 04/01/17 09:15 04/01/17 09:15 04/01/17 09:15 04/01/17 09:15 04/01/17 09:15 Intake and Output: 04/01/17 04/01/17 06:59 18:59 Intake Total 720 Balance 720 - Medications Medications: Current Medications Acetaminophen (Tylenol 325mg Tab) 650 mg PO Q6H PRN PRN Reason: Pain, Mild (1-3) Last Admin: 03/31/17 14:37 Dose: 650 mg Al Hydrox/Mg Hydrox/Simethicone (Maalox 30 Ml) 30 ml PO Q8H PRN PRN Reason: Indigestion / Heartburn Albuterol (Ventolin Hfa 90 Mcg/Actuation (8 G)) 2 puff IH RQ4 PRN PRN Reason: Shortness of Breath Last Admin: 03/31/17 11:00 Dose: 2 puff Clotrimazole (Lotrimin 1%) 0 gm TOP BID [facility] Last Admin: 04/01/17 10:57 Dose: Not Given Diphenhydramine HCl (Benadryl) 25 mg PO Q12 PRN PRN Reason: Itching / Pruritus Last Admin: 03/31/17 22:45 Dose: 25 mg Docusate Sodium (Colace) 100 mg PO BID [facility] Last Admin: 04/01/17 09:26 Dose: 100 mg Enoxaparin Sodium (Lovenox) 40 mg SC DAILY [facility] Last Admin: 04/01/17 09:26 Dose: 40 mg Fluconazole (Diflucan) 150 mg PO ONCE ONE Stop: 04/02/17 11:36 Guaifenesin/Dextromethorphan (Robitussin Dm) 10 ml PO Q4H PRN PRN Reason: Cough and congestion Last Admin: 04/01/17 02:06 Dose: 10 ml Hydrochlorothiazide (Hydrodiuril) 25 mg PO DAILY [facility] Last Admin: 04/01/17 09:26 Dose: 25 mg Ketorolac Tromethamine (Toradol) 30 mg IVP Q6 PRN PRN Reason: Pain, severe (8-10) Last Admin: 03/31/17 09:40 Dose: 30 mg Levothyroxine Sodium (Synthroid) 50 mcg PO DAILY@0630 [facility] Last Admin: 04/01/17 05:57 Dose: 50 mcg Lisinopril (Zestril) 10 mg PO DAILY [facility] Last Admin: 04/01/17 09:27 Dose: 10 mg Montelukast Sodium (Singulair) 10 mg PO HS [facility] Last Admin: 03/31/17 22:45 Dose: 10 mg Morphine Sulfate (Morphine) 2 mg IVP Q4 PRN PRN Reason: Pain, moderate (4-7) Last Admin: 04/01/17 11:56 Dose: 2 mg Multivitamins (Hexavitamin) 1 tab PO DAILY [facility] Last Admin: 04/01/17 09:27 Dose: 1 tab Pantoprazole Sodium (Protonix Ec Tab) 40 mg PO DAILY [facility] Last Admin: 04/01/17 09:26 Dose: 40 mg Rosuvastatin Calcium (Crestor) 5 mg PO HS [facility] Last Admin: 03/31/17 22:45 Dose: 5 mg Fluticasone/Salmeterol (Advair Diskus 500/50) 1 puff INH RQ12 [facility] Last Admin: 04/01/17 09:40 Dose: 1 puff - Labs Labs: 04/01/17 06:20 04/01/17 06:19 PT 12.4 SECONDS (9.7-12.2) H 03/19/17 19:53 INR 1.1 03/19/17 19:53 APTT 51 SECONDS (21-34) H D 03/21/17 17:17 - Constitutional Appears: Well, Non-toxic, No Acute Distress - Head Exam Head Exam: ATRAUMATIC, NORMAL INSPECTION, NORMOCEPHALIC - Eye Exam Eye Exam: EOMI, Normal appearance, PERRL - ENT Exam ENT Exam: Mucous Membranes Moist, Normal Exam - Neck Exam Neck Exam: Full ROM. absent: Lymphadenopathy - Respiratory Exam Respiratory Exam: Clear to Ausculation Bilateral, NORMAL BREATHING PATTERN. absent: Rales, Rhonchi, Wheezes, Respiratory Distress, Stridor - Cardiovascular Exam Cardiovascular Exam: REGULAR RHYTHM, RRR. absent: Gallop, Rubs, Murmur - GI/Abdominal Exam GI & Abdominal Exam: Soft, Normal Bowel Sounds. absent: Tenderness - Exam Additional comments: white patchy rash in groin that is pruritic - Extremities Exam Extremities Exam: Normal Inspection. absent: Pedal Edema - Neurological Exam Neurological Exam: Alert, Awake, Oriented x3 - Psychiatric Exam Psychiatric exam: Normal Affect, Normal Mood - Skin Skin Exam: Intact, Rash, Warm Additional comments: rash b/l groin Assessment and Plan - Assessment and Plan (Free Text) Assessment: Right 2nd Toe Osteomyelitis s/p 2nd digit arthroplasty with K wire fixation 01/21/2017 Vanco 1g IV Q12H - Dr. Cartwright Will re-eval tomorrow for possible adjustment of abx to allow for out pt follow up. Consulted Vascular Surgery - Dr. Lay - acute vascular compromise to extremities unlikely CTA 03/19 - unremarkable, no evidence of peripheral disease. PICC line placed 03/23/17 HTN Lisinopril 10mg daily, HCTZ 25mg PO daily A1c 5.8 TSH 1.86 lipid panel -WNL Hypothyroid Synthroid 50mcg daily HLD Crestor 10mg daily Asthma Singular 10mg daily Advair Diskus 500-50mcg/dose 1 puff daily Ventolin HFA 108 (90 base) mcg/act 2 puffs Q4H PRN Polyarthritis Celebrex 100mg daily Tinea Cruris Diflucan 150 mg po once Clotrimazole 1% cream apply BID Prophylactic Care Lovenox 40mg SC daily Protonix 40mg daily <Bolivar Brennan - Last Filed: 04/02/17 09:19> Objective - Vital Signs/Intake and Output Vital Signs (last 24 hours): Temp Pulse Resp BP Pulse Ox 98.3 F 52 L 18 129/74 98 04/02/17 07:20 04/02/17 07:20 04/02/17 07:20 04/02/17 07:20 04/02/17 07:20 Intake and Output: 04/02/17 04/02/17 06:59 18:59 Intake Total 520 Balance 520 - Medications Medications: Current Medications Acetaminophen (Tylenol 325mg Tab) 650 mg PO Q6H PRN PRN Reason: Pain, Mild (1-3) Last Admin: 04/01/17 22:43 Dose: 650 mg Al Hydrox/Mg Hydrox/Simethicone (Maalox 30 Ml) 30 ml PO Q8H PRN PRN Reason: Indigestion / Heartburn Albuterol (Ventolin Hfa 90 Mcg/Actuation (8 G)) 2 puff IH RQ4 PRN PRN Reason: Shortness of Breath Last Admin: 04/01/17 19:44 Dose: 2 puff Clotrimazole (Lotrimin 1%) 0 gm TOP BID [facility] Last Admin: 04/01/17 18:30 Dose: 1 applic Diphenhydramine HCl (Benadryl) 25 mg PO Q12 PRN PRN Reason: Itching / Pruritus Last Admin: 04/01/17 22:39 Dose: 25 mg Docusate Sodium (Colace) 100 mg PO BID [facility] Last Admin: 04/01/17 18:31 Dose: 100 mg Enoxaparin Sodium (Lovenox) 40 mg SC DAILY [facility] Last Admin: 04/01/17 09:26 Dose: 40 mg Fluconazole (Diflucan) 150 mg PO ONCE ONE Stop: 04/02/17 11:36 Guaifenesin/Dextromethorphan (Robitussin Dm) 10 ml PO Q4H PRN PRN Reason: Cough and congestion Last Admin: 04/01/17 22:39 Dose: 10 ml Hydrochlorothiazide (Hydrodiuril) 25 mg PO DAILY [facility] Last Admin: 04/01/17 09:26 Dose: 25 mg Vancomycin HCl 1 gm/ Sodium (Chloride) 250 mls @ 166.7 mls/hr IVPB Q12H [facility] Last Admin: 04/02/17 08:26 Dose: 166.7 mls/hr Ketorolac Tromethamine (Toradol) 30 mg IVP Q6 PRN PRN Reason: Pain, severe (8-10) Last Admin: 04/02/17 06:06 Dose: 30 mg Levothyroxine Sodium (Synthroid) 50 mcg PO DAILY@0630 [facility] Last Admin: 04/02/17 05:53 Dose: 50 mcg Lisinopril (Zestril) 10 mg PO DAILY [facility] Last Admin: 04/01/17 09:27 Dose: 10 mg Montelukast Sodium (Singulair) 10 mg PO HS [facility] Last Admin: 04/01/17 22:39 Dose: 10 mg Morphine Sulfate (Morphine) 2 mg IVP Q4 PRN PRN Reason: Pain, moderate (4-7) Last Admin: 04/01/17 11:56 Dose: 2 mg Multivitamins (Hexavitamin) 1 tab PO DAILY [facility] Last Admin: 04/01/17 09:27 Dose: 1 tab Pantoprazole Sodium (Protonix Ec Tab) 40 mg PO DAILY [facility] Last Admin: 04/01/17 09:26 Dose: 40 mg Rosuvastatin Calcium (Crestor) 5 mg PO HS [facility] Last Admin: 04/01/17 22:39 Dose: 5 mg Fluticasone/Salmeterol (Advair Diskus 500/50) 1 puff INH RQ12 [facility] Last Admin: 04/01/17 19:43 Dose: 1 puff - Labs Labs: 04/02/17 06:33 04/02/17 06:33 PT 12.4 SECONDS (9.7-12.2) H 03/19/17 19:53 INR 1.1 03/19/17 19:53 APTT 51 SECONDS (21-34) H D 03/21/17 17:17 Attending/Attestation - Attestation I have personally seen and examined this patient.: Yes I have fully participated in the care of the patient.: Yes I have reviewed all pertinent clinical information, including history, physical exam and plan: Yes Notes (Text): 04/02/17 09:18 Patient was seen and examined at bedside with the resident We will continue IV antibiotics for osteomyelitis Discharge planning is in progress I discussed the plan of care with the resident and agree with the residents and assessment/plan documented.
[2017-04-01] MEDS: Albuterol HFA 90 mcg/actuation (8 g) IH PRN (19:44)
[2017-04-02] MEDS: Levothyroxine 50 MCG TAB PO SCH (05:53)
[2017-04-02 06:39] LABS: BASO # 0.1 K/uL (0.0-0.2); BASO % 1.2 % (0.0-2.0); EOS # 0.2 K/uL (0.0-0.7); EOS % 1.8 % (0.0-4.0); HEMATOCRIT 32.5 % (34.0-47.0); LYMPH # 3.6 K/uL (1.0-4.3); LYMPH % 35.5 % (20.0-40.0); MEAN CELL VOLUME 86.1 fL (81.0-99.0); MEAN CORPUSCULAR HEMOGLOBIN 29.5 pg (27.0-31.0); MEAN CORPUSCULAR HGB CONC 34.3 g/dL (33.0-37.0); MEAN PLATELET VOLUME 8.7 fL (7.2-11.7); MONO # 1.1 K/uL (0.0-0.8); MONO % 10.8 % (0.0-10.0); WHITE BLOOD COUNT 10.2 K/uL (4.8-10.8)
[2017-04-02 06:47] LABS: CHLORIDE 98 mmol/L (98-107)
[2017-04-02 06:48] LABS: POTASSIUM 3.5 mmol/L (3.6-5.2); SODIUM 139 mmol/L (132-148)
[2017-04-02 06:50] LABS: ALB/GLOB RATIO 1.1 (1.0-2.1); ALKALINE PHOSPHATASE 57 U/L (38-126); ALT/SGPT 31 U/L (9-52); AST/SGOT 25 U/L (14-36); BILIRUBIN,TOTAL 0.6 mg/dL (0.2-1.3); BLOOD UREA NITROGEN 15 mg/dL (7-17); CARBON DIOXIDE 29 mmol/L (22-30); GFR AFRICAN-AMERICAN > 60; GLUCOSE,RANDOM 93 mg/dL (65-105); TOTAL PROTEIN 6.4 g/dL (6.3-8.3)
[2017-04-02 06:51] LABS: CALCIUM 8.7 mg/dl (8.6-10.4)
[2017-04-02 08:05] VITALS: O2SAT 98
[2017-04-02] MEDS: Fluticasone-Salmeterol 500-50mcg Diskus INH SCH (09:20)
[2017-04-02] MEDS: Albuterol HFA 90 mcg/actuation (8 g) IH PRN (09:20)
[2017-04-02] MEDS: Multiple Vitamins Tab PO SCH (09:35)
[2017-04-02] MEDS: Pantoprazole 40 mg EC Tab PO SCH (09:36)
[2017-04-02] MEDS: Enoxaparin 40 mg Syringe SC SCH (09:36)
[2017-04-02] MEDS: Clotrimazole 1% Cream(30 gm) TOP SCH (09:44)
--- NOTE | 2017-04-02 10:23 | CP.PCM.PN ---
Subjective - Date & Time of Evaluation Date of Evaluation: 04/02/17 Time of Evaluation: 10:23 - Subjective Subjective: Podiatry progress note for Dr. Grace 72 year old female was seen at bedside regarding right second digit pain. Patient admits that her toe feels better than yesterday. NAD. Denies any n/v/f/ c/sob/cp. Objective - Vital Signs/Intake and Output Vital Signs (last 24 hours): Temp Pulse Resp BP Pulse Ox 98.3 F 52 L 18 129/74 98 04/02/17 07:20 04/02/17 07:20 04/02/17 07:20 04/02/17 07:20 04/02/17 07:20 Intake and Output: 04/02/17 04/02/17 06:59 18:59 Intake Total 520 Balance 520 - Medications Medications: Current Medications Acetaminophen (Tylenol 325mg Tab) 650 mg PO Q6H PRN PRN Reason: Pain, Mild (1-3) Last Admin: 04/01/17 22:43 Dose: 650 mg Al Hydrox/Mg Hydrox/Simethicone (Maalox 30 Ml) 30 ml PO Q8H PRN PRN Reason: Indigestion / Heartburn Albuterol (Ventolin Hfa 90 Mcg/Actuation (8 G)) 2 puff IH RQ4 PRN PRN Reason: Shortness of Breath Last Admin: 04/02/17 09:20 Dose: 2 puff Clotrimazole (Lotrimin 1%) 0 gm TOP BID [facility] Last Admin: 04/02/17 09:44 Dose: 1 applic Diphenhydramine HCl (Benadryl) 25 mg PO Q12 PRN PRN Reason: Itching / Pruritus Last Admin: 04/01/17 22:39 Dose: 25 mg Docusate Sodium (Colace) 100 mg PO BID [facility] Last Admin: 04/02/17 09:36 Dose: 100 mg Enoxaparin Sodium (Lovenox) 40 mg SC DAILY [facility] Last Admin: 04/02/17 09:36 Dose: 40 mg Fluconazole (Diflucan) 150 mg PO ONCE ONE Stop: 04/02/17 11:36 Guaifenesin/Dextromethorphan (Robitussin Dm) 10 ml PO Q4H PRN PRN Reason: Cough and congestion Last Admin: 04/01/17 22:39 Dose: 10 ml Hydrochlorothiazide (Hydrodiuril) 25 mg PO DAILY [facility] Last Admin: 04/02/17 09:36 Dose: 25 mg Vancomycin HCl 800 mg/ Sodium (Chloride) 250 mls @ 166.667 mls/hr IVPB ONCE ONE Stop: 04/02/17 12:29 Vancomycin HCl 1,800 mg/ (Sodium Chloride) 500 mls @ 200 mls/hr IVPB DAILY [facility] Ketorolac Tromethamine (Toradol) 30 mg IVP Q6 PRN PRN Reason: Pain, severe (8-10) Last Admin: 04/02/17 06:06 Dose: 30 mg Levothyroxine Sodium (Synthroid) 50 mcg PO DAILY@0630 [facility] Last Admin: 04/02/17 05:53 Dose: 50 mcg Lisinopril (Zestril) 10 mg PO DAILY [facility] Last Admin: 04/02/17 09:36 Dose: 10 mg Montelukast Sodium (Singulair) 10 mg PO HS [facility] Last Admin: 04/01/17 22:39 Dose: 10 mg Morphine Sulfate (Morphine) 2 mg IVP Q4 PRN PRN Reason: Pain, moderate (4-7) Last Admin: 04/01/17 11:56 Dose: 2 mg Multivitamins (Hexavitamin) 1 tab PO DAILY [facility] Last Admin: 04/02/17 09:35 Dose: 1 tab Pantoprazole Sodium (Protonix Ec Tab) 40 mg PO DAILY [facility] Last Admin: 04/02/17 09:36 Dose: 40 mg Rosuvastatin Calcium (Crestor) 5 mg PO HS [facility] Last Admin: 04/01/17 22:39 Dose: 5 mg Fluticasone/Salmeterol (Advair Diskus 500/50) 1 puff INH RQ12 [facility] Last Admin: 04/02/17 09:20 Dose: 1 puff - Labs Labs: 04/02/17 06:33 04/02/17 06:33 PT 12.4 SECONDS (9.7-12.2) H 03/19/17 19:53 INR 1.1 03/19/17 19:53 APTT 51 SECONDS (21-34) H D 03/21/17 17:17 - Constitutional Appears: Well, Non-toxic, No Acute Distress - Extremities Exam Additional comments: Right lower extremity focused exam: Vasc: DP and PT pulses palpable 2/4. Skin temperature warm to cool from proximal to distal. CFT < 3 sec x 5. Decreased edema noted to right 2nd digit. Derm: No open lesions, no drainage, no erythema, no clinical signs of infection. Right 2nd digit skin is slightly discolored and hyperpigmented- improving. Neuro: Protective sensation grossly intact Ortho: Tenderness on palpation noted to the right 2nd digit - Neurological Exam Neurological Exam: Alert, Awake, Oriented x3 - Psychiatric Exam Psychiatric exam: Normal Affect, Normal Mood Assessment and Plan - Assessment and Plan (Free Text) Assessment: 72 year old female 10 weeks status post right 2nd digit hammertoe correction with right 2nd digit pain Plan: Patient examined and evaluated Discussed plan in detail with Dr. Grace Chart, labs, vitals reviewed - afebrile, WBC 10.2 No dressing needed continue pain medication per primary continue IV abx per primary Upon D/C patient to follow up in podiatry clinic podiatry will continue to follow patient while in house
[2017-04-02] MEDS: guaiFENesin DM 200 mg-20 mg/10 ml UD PO PRN (11:38)
--- NOTE | 2017-04-02 11:44 | CP.PCM.DIS ---
<KendallEstefanía L. - Last Filed: 04/02/17 17:24> Provider - Provider Date of Admission: 03/19/17 14:37 Attending physician: Bolivar Brennan MD Primary care physician: [facility] Consults: Dr. Cartwright (infectious disease) Dr. Grace (podiatry) Dr. Lay (surgery) Time Spent in preparation of Discharge (in minutes): 45 Diagnosis - Discharge Diagnosis (1) Osteomyelitis Status: Acute (2) Hypothyroid Status: Acute (3) Tinea cruris Status: Acute (4) Hypercholesterolemia Status: Chronic (5) Hypertension Status: Chronic Hospital Course - Lab Results Lab Results: Most Recent Lab Values WBC 10.2 K/uL (4.8-10.8) 04/02/17 06:33 RBC 3.77 Mil/uL (3.80-5.20) L 04/02/17 06:33 Hgb 11.1 g/dL (11.0-16.0) 04/02/17 06:33 Hct 32.5 % (34.0-47.0) L 04/02/17 06:33 MCV 86.1 fL (81.0-99.0) 04/02/17 06:33 MCH 29.5 pg (27.0-31.0) 04/02/17 06:33 MCHC 34.3 g/dL (33.0-37.0) 04/02/17 06:33 RDW 13.0 % (11.5-14.5) 04/02/17 06:33 Plt Count 222 K/uL (130-400) 04/02/17 06:33 MPV 8.7 fL (7.2-11.7) 04/02/17 06:33 Neut % (Auto) 50.7 % (50.0-75.0) 04/02/17 06:33 Lymph % (Auto) 35.5 % (20.0-40.0) 04/02/17 06:33 [place] % (Auto) 10.8 % (0.0-10.0) H 04/02/17 06:33 Eos % (Auto) 1.8 % (0.0-4.0) 04/02/17 06:33 Baso % (Auto) 1.2 % (0.0-2.0) 04/02/17 06:33 Neut # 5.2 K/uL (1.8-7.0) 04/02/17 06:33 Lymph # 3.6 K/uL (1.0-4.3) 04/02/17 06:33 [place] # 1.1 K/uL (0.0-0.8) H 04/02/17 06:33 Eos # 0.2 K/uL (0.0-0.7) 04/02/17 06:33 Baso # 0.1 K/uL (0.0-0.2) 04/02/17 06:33 ESR 30 mm/hr (0-20) H 03/22/17 08: PT 12.4 SECONDS (9.7-12.2) H 03/19/17 19:53 INR 1.1 03/19/17 19:53 APTT 51 SECONDS (21-34) H D 03/21/17 17:17 Sodium 139 mmol/L (132-148) 04/02/17 06:33 Potassium 3.5 mmol/L (3.6-5.2) L 04/02/17 06:33 Chloride 98 mmol/L (98-107) 04/02/17 06:33 Carbon Dioxide 29 mmol/L (22-30) 04/02/17 06:33 Anion Gap 16 (10-20) 04/02/17 06:33 BUN 15 mg/dL (7-17) 04/02/17 06:33 Creatinine 0.8 MG/DL (0.7-1.2) 04/02/17 06:33 Est GFR ( Amer) > 60 04/02/17 06:33 Est GFR (Non-Af Amer) > 60 04/02/17 06:33 Random Glucose 93 mg/dL (65-105) 04/02/17 06:33 Hemoglobin A1c 5.8 % (4.2-6.5) 03/20/17 11:14 Calcium 8.7 mg/dl (8.6-10.4) 04/02/17 06:33 Total Bilirubin 0.6 mg/dL (0.2-1.3) 04/02/17 06:33 AST 25 U/L (14-36) 04/02/17 06:33 ALT 31 U/L (9-52) 04/02/17 06:33 Alkaline Phosphatase 57 U/L (38-126) 04/02/17 06:33 Total Protein 6.4 g/dL (6.3-8.3) 04/02/17 06:33 Albumin 3.3 g/dL (3.5-5.0) L 04/02/17 06:33 Globulin 3.1 gm/dL (2.2-3.9) 04/02/17 06:33 Albumin/Globulin Ratio 1.1 (1.0-2.1) 04/02/17 06:33 Triglycerides 87 mg/dL (0-149) D 03/20/17 11:14 Cholesterol 190 mg/dL (0-199) 03/20/17 11:14 LDL Cholesterol Direct 120 mg/dL (0-129) 03/20/17 11:14 HDL Cholesterol 54 mg/dL (30-70) 03/20/17 11:14 TSH 3rd Generation 1.86 mIU/L (0.46-4.68) 03/20/17 11:14 Vancomycin Trough 15.0 ug/mL (5.0-10.0) H 03/23/17 07:49 - Hospital Course Hospital Course: HPI "71 yo female with a past medical history of asthma, HTN, HLD, GERD, Hypothyroidism, Impaired glucose tolerance, Depression, Osteoporosis, Hyperparathyroidism, Polyarthritis and obesity. Patient presents to the ED with a CC of right foot pain s/p pin placement of the 2nd toe on the right foot. The surgery was performed by Dr. Grace on 01/21/17. Patient states a week after the surgery, her entire foot turned black and became very painful. The color of her foot has returned to normal except for the second and third toes which remain discolored. The pain is described as burning/throbbing and "feeling like getting bitten by bugs". The pain comes and goes but over the past few days it has gotten more intense. She states she has been taken "some painkiller" prescribed by Dr. Grace but it is not controlling the pain. She states since the pain has started, she has been experiencing fever and chills sporadically. She claims that she has lost consciousness on multiple occasions as a result from the intense pain that she feels. Patient states that she also has been experiencing extreme episodes of pruritus all over her body since the pain has began. Patient states that she has not taken anything outside of what Dr. Grace has prescribed to try and help her symptoms. Patient states she was taking some antibiotics but does not known exactly what she was taking. Denies n /v, d/c, cp, rash or sore throat. Patient has baseline sob due to history of asthma. Patient has hx of headaches at baseline." Hospital Course Right 2nd Toe Osteomyelitis: Patient is s/p 2nd digit arthroplasty with K wire fixation on 01/21/2017. Consulted vascular surgery to r/o peripheral vascular disease. CTA done on 03/19 was unremarkable and showed no evidence of vascular compromise. PICC line placed on 03/23/2017 and Vancomycin was started to tx osteomyelitis. Consulted Dr. Cartwright to begin outpatient Vancomycin at infusion center. Patient to visit infusion center for vancomycin 1800 mg daily. HTN: Patient was given lisinopril 10 mg daily and HCTZ 25 mg PO daily. A1c was 5.8, TSH was 1.86, and lipid panel was WNL. HLD: Patient given Crestor 10 mg daily Hypothyroid: Patient given synthroid 10 mg daily Asthma: Patient was given Singulair 10 mg daily, Advair Diskus 500-50 mcg/dose 1 puff daily, and Ventolin HFA 108 (90 base) mcg/act 2 puffs Q4H prn Polyarthritis: Patient given 100 mg daily Tinea Cruris: Patient given Diflucan 150 mg po once, clotrimazole 1% cream, apply BID Prophylactic Care: Lovenox 40 mg SC daily for DVT prophylaxis, and Protonix 40 mg daily. Patient stable for discharge as per Dr. Brennan. This is a summary of the patient' s hospital course. Please see chart for full details. Discharge Exam - Head Exam Head Exam: ATRAUMATIC, NORMAL INSPECTION, NORMOCEPHALIC - Eye Exam Eye Exam: EOMI, Normal appearance, PERRL - ENT Exam ENT Exam: Mucous Membranes Moist - Neck Exam Neck exam: Full Rom - Respiratory Exam Respiratory Exam: Clear to PA & Lateral, NORMAL BREATHING PATTERN. absent: Rales, Rhonchi, Wheezes, Respiratory Distress, Stridor - Cardiovascular Exam Cardiovascular Exam: REGULAR RHYTHM, RRR. absent: Gallop, Rubs, Systolic Murmur - GI/Abdominal Exam GI & Abdominal Exam: Normal Bowel Sounds. absent: Distended, Firm - Extremities Exam Extremities exam: normal inspection - Neurological Exam Neurological exam: Alert, Oriented x3 - Psychiatric Exam Psychiatric exam: Normal Affect, Normal Mood - Skin Skin Exam: Intact, Rash, Warm Additional comments: rash b/l sides of groin Discharge Plan - Discharge Medications Prescriptions: Clotrimazole 1% Cream [Lotrimin 1%] 1 gm TOP BID #2 tub - Follow Up Plan Condition: STABLE Disposition: HOME/ ROUTINE Instructions: Heart Healthy Diet (DC), Osteomyelitis (DC) Additional Instructions: Patient stable for discharge as per Dr. Brennan. Patient to continue taking her home medications. Patient to use Clotrimazole cream (1%) twcie a day on groin. Patient to follow up with [facility] clinic at [facility] within 2 weeks. Patient will come every day to infusion center to get Vancomycin 1800mg until . Patient will need lab work every through 04/25/17: CBC, CMP, Vancomycin peak/ trough, and ESR. Patient explained instructions who understood and agreed. Patient to return immediately to Emergency Room if symptoms worsen or persist. Referrals: [facility] at [facility] [Outside] <Bolivar Brennan - Last Filed: 04/03/17 13:11> Provider - Provider Date of Admission: 03/19/17 14:37 Attending physician: Bolivar Brennan MD Hospital Course - Lab Results Lab Results: Most Recent Lab Values WBC 10.2 K/uL (4.8-10.8) 04/02/17 06:33 RBC 3.77 Mil/uL (3.80-5.20) L 04/02/17 06:33 Hgb 11.1 g/dL (11.0-16.0) 04/02/17 06:33 Hct 32.5 % (34.0-47.0) L 04/02/17 06:33 MCV 86.1 fL (81.0-99.0) 04/02/17 06:33 MCH 29.5 pg (27.0-31.0) 04/02/17 06:33 MCHC 34.3 g/dL (33.0-37.0) 04/02/17 06:33 RDW 13.0 % (11.5-14.5) 04/02/17 06:33 Plt Count 222 K/uL (130-400) 04/02/17 06:33 MPV 8.7 fL (7.2-11.7) 04/02/17 06:33 Neut % (Auto) 50.7 % (50.0-75.0) 04/02/17 06:33 Lymph % (Auto) 35.5 % (20.0-40.0) 04/02/17 06:33 [place] % (Auto) 10.8 % (0.0-10.0) H 04/02/17 06:33 Eos % (Auto) 1.8 % (0.0-4.0) 04/02/17 06:33 Baso % (Auto) 1.2 % (0.0-2.0) 04/02/17 06:33 Neut # 5.2 K/uL (1.8-7.0) 04/02/17 06:33 Lymph # 3.6 K/uL (1.0-4.3) 04/02/17 06:33 [place] # 1.1 K/uL (0.0-0.8) H 04/02/17 06:33 Eos # 0.2 K/uL (0.0-0.7) 04/02/17 06:33 Baso # 0.1 K/uL (0.0-0.2) 04/02/17 06:33 ESR 30 mm/hr (0-20) H 03/22/17 08:17 PT 12.4 SECONDS (9.7-12.2) H 03/19/17 19:53 INR 1.1 03/19/17 19:53 APTT 51 SECONDS (21-34) H D 03/21/17 17:17 Sodium 139 mmol/L (132-148) 04/02/17 06:33 Potassium 3.5 mmol/L (3.6-5.2) L 04/02/17 06:33 Chloride 98 mmol/L (98-107) 04/02/17 06:33 Carbon Dioxide 29 mmol/L (22-30) 04/02/17 06:33 Anion Gap 16 (10-20) 04/02/17 06:33 BUN 15 mg/dL (7-17) 04/02/17 06:33 Creatinine 0.8 MG/DL (0.7-1.2) 04/02/17 06:33 Est GFR ( Amer) > 60 04/02/17 06:33 Est GFR (Non-Af Amer) > 60 04/02/17 06:33 Random Glucose 93 mg/dL (65-105) 04/02/17 06:33 Hemoglobin A1c 5.8 % (4.2-6.5) 03/20/17 11:14 Calcium 8.7 mg/dl (8.6-10.4) 04/02/17 06:33 Total Bilirubin 0.6 mg/dL (0.2-1.3) 04/02/17 06:33 AST 25 U/L (14-36) 04/02/17 06:33 ALT 31 U/L (9-52) 04/02/17 06:33 Alkaline Phosphatase 57 U/L (38-126) 04/02/17 06:33 Total Protein 6.4 g/dL (6.3-8.3) 04/02/17 06:33 Albumin 3.3 g/dL (3.5-5.0) L 04/02/17 06:33 Globulin 3.1 gm/dL (2.2-3.9) 04/02/17 06:33 Albumin/Globulin Ratio 1.1 (1.0-2.1) 04/02/17 06:33 Triglycerides 87 mg/dL (0-149) D 03/20/17 11:14 Cholesterol 190 mg/dL (0-199) 03/20/17 11:14 LDL Cholesterol Direct 120 mg/dL (0-129) 03/20/17 11:14 HDL Cholesterol 54 mg/dL (30-70) 03/20/17 11:14 TSH 3rd Generation 1.86 mIU/L (0.46-4.68) 03/20/17 11:14 Vancomycin Trough 15.0 ug/mL (5.0-10.0) H 03/23/17 07:49 Attending/Attestation - Attestation I have personally seen and examined this patient.: Yes I have fully participated in the care of the patient.: Yes I have reviewed all pertinent clinical information, including history, physical exam and plan: Yes Notes (Text): 04/03/17 13:10 Patient was seen and examined at bedside with the resident Patient to has no new complaints PICC line is in place and we will discharge the patient to to home with the arrangements for daily antibiotic administration at the infusion center. I discussed the plan of care with the resident and agree the discharge note by the resident.
[2017-04-02 16:19] VITALS: BP 123/86; PULSE 101; RESP 20; TEMP 98.1
== END 2017-04-02 16:36 | disposition home or self-care (01) | DRG 566 ==
LOC: C.ER 10:58 → C.9E 14:37 → C.5T 19:50 → C.6T 03-28 08:37
PROVIDERS: ADMIT Internal Medicine; ATTEND Internal Medicine
PROC: 02HV33Z Insertion of Infusion Device into Superior Vena Cava, Percutaneous Approach (ICD-10-PCS; principal; 2017-03-23)
DX: E11.69 Type 2 diabetes mellitus with other specified complication (principal); M86.171 Other acute osteomyelitis, right ankle and foot; J44.9 Chronic obstructive pulmonary disease, unspecified; B35.6 Tinea cruris; I10 Essential (primary) hypertension; M13.0 Polyarthritis, unspecified; E03.9 Hypothyroidism, unspecified; E78.00 Pure hypercholesterolemia, unspecified; K21.9 Gastro-esophageal reflux disease without esophagitis; M81.0 Age-related osteoporosis without current pathological fracture; Z79.2 Long term (current) use of antibiotics; Z87.01 Personal history of pneumonia (recurrent); Z87.891 Personal history of nicotine dependence; E66.9 Obesity, unspecified; E21.3 Hyperparathyroidism, unspecified

== ENCOUNTER 2017-12-09 06:11 | Day surgery (SDC) | payer OTHER ==
[2017-11-05 12:02] VITALS: BMI 28.7
[2017-12-09 07:13] VITALS: O2SAT 100
[2017-12-09] MEDS ORDERED: Lidocaine 1% PF (5ml) Amp INJ ONE (07:36)
[2017-12-09] MEDS ORDERED: ceFAZolin 1 gm in NS 0 GM/0 ML BAG IVPB ONE (07:36)
[2017-12-09] MEDS ORDERED: Bupivacaine 0.5% Inj(30mL) IJ ONE (07:36)
[2017-12-09] MEDS ORDERED: Midazolam 2 MG/2 ML VIAL ONE (08:34)
--- NOTE | 2017-12-09 09:30 | PCM.SURG1 ---
Surgeon's Initial Post Op Note - Surgeon's Notes Surgeon: Dr. Grace DPM [facility] Compliance Officer: Dr. Gómez DPM PGY-2 Type of Anesthesia: IV Sedation, Local Anesthesia Administered By: Dr. Morin Pre-Operative Diagnosis: right foot 2nd digit hammertoe Operative Findings: see dictation Post-Operative Diagnosis: same Operation Performed: right foot 2nd digit revisional PIPJ arthroplasty Specimen/Specimens Removed: right 2nd digit proximal phalanx Estimated Blood Loss: EBL {In ML}: 1 Blood Products Given: N/A Drains Used: No Drains Post-Op Condition: Good Date of Surgery/Procedure: 12/09/17 Time of Surgery/Procedure: 09:30
[2017-12-09] MEDS ORDERED: Oxycodone/Acetaminophen 5/325 mg Tab PO PRN ×2 (09:31)
[2017-12-09] MEDS ORDERED: HYDROmorphone 0.5 mg/0.5 ml ISec IVP PRN (09:32)
--- NOTE | 2017-12-09 10:24 | RAD ---
PROCEDURE: Right Foot Radiographs. HISTORY: s/p R foot sx COMPARISON: 10/16/2017 FINDINGS: BONES: S/p osteotomy distal aspect 2nd proximal phalanx. Plantar calcaneal spur noted incidentally. No other osseous abnormality. No acute fracture. JOINTS: Normal. SOFT TISSUES: Normal. OTHER FINDINGS: None. IMPRESSION: Osteotomy 2nd proximal phalanx, distal aspect.
[2017-12-09 11:49] VITALS: RESP 18
[2017-12-09 12:41] VITALS: BP 97/55; PULSE 82; TEMP 97.7
--- NOTE | 2017-12-10 23:11 | OP ---
PROCEDURE DATE: 12/09/2017 PREOPERATIVE DIAGNOSIS: Right foot second digit hammertoe deformity. POSTOPERATIVE DIAGNOSIS: Right foot second digit hammertoe deformity. PROCEDURE: Right foot second digit revisional arthroplasty. SURGEON: Jayde Grace DPM ANALYST: Grecia Gómez DPM ANESTHESIOLOGIST: Dr. Morin. ANESTHESIA: IV sedation with local. INDICATIONS: The patient is a 72-year-old female with the above-mentioned diagnosis. The patient has been treated by Dr. Grace in her clinic on outpatient basis, but she has exhausted multiple forms of conservative treatment and patient requires surgical intervention at this time. All risks, benefits, and possible complications of proposed procedure have been explained to the patient at length. The patient verbalized understanding and wishes to proceed. All questions were answered. No guarantees were given nor implied. Consent was signed. N.p.o. status was confirmed prior to taking the patient to the operating room. DESCRIPTION OF PROCEDURE: The patient was brought into the operating room and placed on the operating table in a supine position. A well-padded pneumatic ankle tourniquet was applied to the patient's right ankle in the supramalleolar position. After induction of IV sedation, a local injection consisting of 10 mL of 1:1 mixture of 1% lidocaine plain and 0.5% Marcaine plain was given in a local block fashion to the patient's right foot. Once local anesthesia was achieved, the right foot was then prepped and draped in the usual sterile manner. The procedure began. PROCEDURE 1: Right foot second digit revisional arthroplasty. Attention was directed to the dorsal aspect of the second digit of the right foot where a linear longitudinal incision was made overlying the proximal interphalangeal joint of the right foot second digit. The incision was taken down to the subcutaneous tissue with care being taken to identify and retract all vital neurovascular structures. All bleeders were cauterized and ligated as necessary. At this time, a transverse tenotomy and capsulotomy was performed to the proximal interphalangeal joint of the second digit of the right foot. The head of the proximal phalanx was then freed of all capsular and ligamentous attachments and utilizing an osteotome, the joint was found. Next, utilizing a sagittal saw, the head of the proximal phalanx was retracted and passed off the operative field. The surgical site was then irrigated with copious amounts of normal sterile saline. The surgical site was then closed with #4-0 Vicryl. The skin was then closed with #4-0 Prolene in a simple suture pattern technique. Postoperative injection consisting of 10 mL of 0.5% Marcaine plain and 10 mg of dexamethasone was given. Postoperative dressings included saline soaked gauze, 4x4, Kerlix, and lastly Coban. POSTOPERATIVE CONDITION: The patient tolerated the anesthesia and procedure well with no apparent complications or complaints. The patient was escorted from the operating room to the recovery room with vital signs stable and neurovascular status intact. The patient will follow up with Dr. Grace in clinic on outpatient basis. Grecia Gómez DPM Jayde Grace DPM MTDEsther
== END 2017-12-09 14:10 | disposition home or self-care (01) ==
LOC: C.SDS 06:11
PROVIDERS: ATTEND Podiatrist Foot & Ankle Surgery
DX: M20.41 Other hammer toe(s) (acquired), right foot (principal)
CPT/HCPCS: 28285; 73630; 87070; 88304; J1100; J2250; J2405; J2765; J3010

== ENCOUNTER 2018-09-18 10:35 | Outpatient (CLI) | payer OTHER | END 2018-09-18 10:36 | disposition home or self-care (01) | LOC: C.CARD 10:35 | DX: R07.89 Other chest pain (principal); I10 Essential (primary) hypertension ==

== ENCOUNTER 2018-11-18 10:57 | Outpatient (CLI) | payer OTHER | END 2018-11-18 10:58 | disposition home or self-care (01) | LOC: C.RADH 10:57 | DX: M25.519 Pain in unspecified shoulder (principal); M79.642 Pain in left hand ==